=== PATIENT | female | born 1950 | race Caucasian/White ===

== ENCOUNTER 2019-05-31 21:29 | Emergency (ER) | payer MEDICARE ==
[~2019-05-31] VITALS: Ht 165.1 cm; Wt 74.8 kg
--- NOTE | ~2019-05-31 | EKG ---
[place], [place] ELECTROCARDIOGRAM REPORT NAME: NILAY BARR UNIT #: [id number] ROOM: DOCTOR: EPIPHANY DRAFT REPORT BIRTHDATE: [birth year] [facility] Test Date: 2019-06-01 Test Time: 00:14:00 Pat Name: NILAY BARR Department: ed Room: 1 Gender: F Tour Bus Driver: : 1950 Requested By: UYEN ISABEL Order Number: [id number] Reading MD: Xander El MD Measurements Intervals [place] Rate: 58 P: ME: QRS: 28 QRSD: 116 T: 5 QT: 619 QTc: 609 Interpretive Statements Atrial fibrillation Nonspecific intraventricular conduction delay Borderline T abnormalities, anterior leads Electronically Signed On 06-02-2019 15:56:17 PDT by Xander El MD CM:EKGRPT:ELECTROCARDIOGRAM REPORT [id number] UYEN MCDANIEL DRAFT REPORT UYEN ISABEL DO
--- NOTE | ~2019-05-31 | EKG ---
[place], [place] ELECTROCARDIOGRAM REPORT NAME: NILAY BARR UNIT #: [id number] ROOM: DOCTOR: EPIPHANY DRAFT REPORT BIRTHDATE: [birth year] [facility] Test Date: 2019-05-31 Test Time: 22:24:23 Pat Name: NILAY BARR Department: Room: Gender: F Customer Assistance Associate: DANIELE : 1950 Requested By: UYEN ISABEL Order Number: [id number] Reading MD: Xander El MD Measurements Intervals [place] Rate: 67 P: MI: QRS: 32 QRSD: 99 T: 19 QT: 583 QTc: 616 Interpretive Statements Atrial fibrillation Abnormal R-wave progression, early transition Minimal ST depression, anterolateral leads Prolonged QT interval Electronically Signed On 06-02-2019 15:56:09 PDT by Xander El MD CM:EKGRPT:ELECTROCARDIOGRAM REPORT 1556 UYEN MCDANIEL DRAFT REPORT UYNE ISABEL DO
[2019-05-31 22:25] LABS: BASO % 0.3 % (0.0-1.0); HEMATOCRIT 33.2 % (37.0-47.0); HEMOGLOBIN 11.1 g/dl (12.0-16.0); LYMPH # 1.2 10*3/uL (1.3-4.4); MEAN CELL VOLUME 99.4 fl (81.0-99.0); MEAN CORPUSCULAR HGB 33.2 pg (27.0-31.0); MEAN CORPUSCULAR HGB CONC 33.4 g/dl (33.0-37.0); MEAN PLATELET VOLUME 12.7 fl (9.6-12.3); MONO # 0.7 10*3/uL (0.1-1.0); MONO % 11.9 % (3.0-9.0); NEUT # 4.1 10*3/uL (2.3-7.9); NEUT % 68.1 % (47.0-73.0); PLATELET COUNT AUTOMATED 137 10*3/uL (130-400); RED BLOOD COUNT 3.34 10*6/uL (4.10-5.10); RED CELL DISTRI WIDTH 16.3 % (0-14.5); WHITE BLOOD COUNT 6.1 10*3/uL (4.8-10.8)
[2019-05-31 22:44] LABS: ALBUMIN 2.8 gm/dl (3.1-4.5); ALKALINE PHOSPHATASE 68 U/L (45-117); BUN 29 mg/dl (7-24); CHLORIDE 98 mmol/L (98-107); CREATININE 0.75 mg/dL (0.55-1.02); SGOT/AST 24 IU/L (3-35); SGPT/ALT 15 U/L (12-78); SODIUM 138 mmol/L (136-145); VALPROIC ACID (DEPAKENE) 91.8 ug/ml (50-100)
[2019-05-31 22:47] LABS: INTERNATIONAL NORM RATIO 1.4 (2.0-3.5)
[2019-05-31 22:50] LABS: POTASSIUM 2.3 mmol/L (3.5-5.1); THYROID STIM HORMONE (HS) 0.984 uIU/ml (0.358-4.75); TROPONIN I 0.067 ng/ml (<0.045)
[2019-06-01 04:23] LABS: BILIRUBIN NEGATIVE (NEGATIVE); BLOOD TRACE-INTACT (NEGATIVE); CLARITY SL CLOUDY (CLEAR); COLOR YELLOW (YELLOW); GLUCOSE NEGATIVE (NEGATIVE); KETONE 2+ (NEGATIVE); LEUKO ESTERASE 3+ (NEGATIVE); NITRITE POSITIVE (NEGATIVE); PH 7.5 (5.0-9.0); UROBILINOGEN 0.2 E.U./dl (0.2-1.0)
[2019-06-01 04:29] LABS: BACTERIA 3+; WBC 41-50 wbc/hpf (0-5)
== END 2019-06-01 04:52 | disposition short-term general hospital (02) ==
LOC: ED 21:29
PROVIDERS: Emergency Medicine
DX: I46.9 Cardiac arrest, cause unspecified (principal); I48.91 Unspecified atrial fibrillation; I47.2 Ventricular tachycardia; E87.6 Hypokalemia; R41.82 Altered mental status, unspecified

== ENCOUNTER 2019-07-11 14:21 | Inpatient (IN) | payer MEDICARE ==
[~2019-07-11] VITALS: Ht 170.1 cm; Wt 75.5 kg
[2019-07-11 14:25] VITALS: BP 154/117
[2019-07-11 15:38] LABS: BASO % 0.3 % (0.0-1.0); HEMATOCRIT 35.5 % (37.0-47.0); HEMOGLOBIN 11.4 g/dl (12.0-16.0); LYMPH # 1.6 10*3/uL (1.3-4.4); LYMPH % 22.7 % (27.0-41.0); MEAN CELL VOLUME 102.6 fl (81.0-99.0); MEAN CORPUSCULAR HGB 32.9 pg (27.0-31.0); MEAN CORPUSCULAR HGB CONC 32.1 g/dl (33.0-37.0); MEAN PLATELET VOLUME 10.4 fl (9.6-12.3); MONO # 0.7 10*3/uL (0.1-1.0); MONO % 9.9 % (3.0-9.0); NEUT # 4.6 10*3/uL (2.3-7.9); NEUT % 65.4 % (47.0-73.0); PLATELET COUNT AUTOMATED 119 10*3/uL (130-400); RED BLOOD COUNT 3.46 10*6/uL (4.10-5.10); RED CELL DISTRI WIDTH 15.7 % (0-14.5); WHITE BLOOD COUNT 7.1 10*3/uL (4.8-10.8)
[2019-07-11 15:52] LABS: ACT PARTIAL THROMBO TIME 30.7 SECONDS (20.0-32.1); INTERNATIONAL NORM RATIO 1.1 (2.0-3.5)
[2019-07-11 16:14] LABS: ALBUMIN 2.3 gm/dl (3.1-4.5); ALKALINE PHOSPHATASE 76 U/L (45-117); BUN 23 mg/dl (7-24); CHLORIDE 107 mmol/L (98-107); CREATININE 0.91 mg/dL (0.55-1.02); LIPASE 68 U/L (73-393); POTASSIUM 3.8 mmol/L (3.5-5.1); SGOT/AST 26 IU/L (3-35); SGPT/ALT 14 U/L (12-78); SODIUM 140 mmol/L (136-145); TOTAL PROTEIN 6.2 gm/dL (6.4-8.2); VALPROIC ACID (DEPAKENE) 106.5 ug/ml (50-100)
[2019-07-11 16:15] LABS: TROPONIN I < 0.015 ng/ml (<0.045)
[2019-07-11] MEDS ORDERED: DEPAKOTE500 MG PO (17:08)
[2019-07-11] MEDS ORDERED: PRILOSEC20 M1 PO (17:09)
[2019-07-11] MEDS ORDERED: FOLGARD TABLET1 EACH PO (17:10)
[2019-07-11] MEDS ORDERED: ELIQUIS5 M1 PO (17:11)
[2019-07-11 17:23] VITALS: BP 126/69
[2019-07-11 17:40] VITALS: BP 156/73
--- NOTE | 2019-07-11 17:40 | NUR ---
A 69, admitted to 5E, under the services of RAFITA Amaro MD with a diagnosis of VALPROIC ACID TOXICITY. Chief complaint is COUGH, DRAINAGE, GREEN SPUTUM . Patient arrived via bed from ER. Monitor applied. Initial assessment completed. Vital signs taken and recorded. RAFITA AMARO MD notified of admission to the unit. Orders received. See assessment for past medical history, medications and allergies. Patient and/or family oriented to unit. [address] visitation policy reviewed. Clothing/patient valuable form completed. HERNANDEZ COKER
[2019-07-11] MEDS ORDERED: PROBIOTIC1 EAC1 PO (18:39)
[2019-07-11] MEDS ORDERED: POTASSIUM99 M5 PO (18:40)
[2019-07-11] MEDS ORDERED: MAGOX 400400 MG PO (18:40)
--- NOTE | 2019-07-11 19:30 | NUR ---
24 HOUR CHART CHECK COMPLETED
[2019-07-11 20:00] VITALS: BP 148/73
--- NOTE | 2019-07-11 20:20 | NUR ---
PATIENT ASSESSMENT COMPLETED AT THIS TIME WITHOUT INCIDENT. PATIENT DENIES ANY PAIN OR DISCOMFORT AT THIS TIME. ORDERED IV FLUIDS INITIATED AT THIS TIME. CALL LIGHT WITHIN REACH WILL CONTINUE TO MONITOR.
--- NOTE | 2019-07-11 21:32 | NUR ---
NASAL SWAB COMPLETED AT THIS TIME FOR RAPID FLU ORDERED BY DR. JUAN.
[2019-07-11 22:43] LABS: VALPROIC ACID (DEPAKENE) 79.6 ug/ml (50-100)
[2019-07-11 22:45] LABS: TROPONIN I < 0.015 ng/ml (<0.045)
[2019-07-12] VITALS: BP 127/57
--- NOTE | 2019-07-12 03:25 | NUR ---
NOTIFIED BY JEREMY FROM LAB THAT PATIENT HAS POSITIVE AEROBIC AND ANEROBIC BLOOD CULTURES, SEE LAB RESULTS.
--- NOTE | 2019-07-12 03:27 | NUR ---
DR. DAWSON NOTIFIED OF POSITIVE BLOOD CULTURE RESULTS AT THIS TIME, AWAITING ORDERS.
--- NOTE | 2019-07-12 04:20 | NUR ---
PATIENT OFF OF FLOOR AT THIS TIME FOR A CHEST CT AT THIS TIME.
[2019-07-12 04:57] LABS: BILIRUBIN NEGATIVE (NEGATIVE); BLOOD 2+ (NEGATIVE); CLARITY SL CLOUDY (CLEAR); COLOR YELLOW (YELLOW); GLUCOSE NEGATIVE (NEGATIVE); KETONE NEGATIVE (NEGATIVE); LEUKO ESTERASE 2+ (NEGATIVE); NITRITE POSITIVE (NEGATIVE); UROBILINOGEN 0.2 E.U./dl (0.2-1.0)
[2019-07-12 05:09] LABS: BACTERIA 4+
[2019-07-12 05:10] LABS: WBC TNTC wbc/hpf (0-5)
--- NOTE | 2019-07-12 06:12 | NUR ---
DR. RODRIGUEZ'S ANSWERING SERVICE CALLED AND MESSAGE TAKEN ON CONSULT AT THIS TIME.
[2019-07-12 06:40] LABS: BASO % 0.3 % (0.0-1.0); EOS % 0.3 % (1.0-4.0); HEMATOCRIT 33.1 % (37.0-47.0); HEMOGLOBIN 10.4 g/dl (12.0-16.0); LYMPH # 1.6 10*3/uL (1.3-4.4); LYMPH % 21.6 % (27.0-41.0); MEAN CELL VOLUME 105.4 fl (81.0-99.0); MEAN CORPUSCULAR HGB 33.1 pg (27.0-31.0); MEAN CORPUSCULAR HGB CONC 31.4 g/dl (33.0-37.0); MEAN PLATELET VOLUME 11.3 fl (9.6-12.3); MONO # 0.9 10*3/uL (0.1-1.0); MONO % 11.7 % (3.0-9.0); NEUT # 4.9 10*3/uL (2.3-7.9); PLATELET COUNT AUTOMATED 113 10*3/uL (130-400); RED BLOOD COUNT 3.14 10*6/uL (4.10-5.10); RED CELL DISTRI WIDTH 15.9 % (0-14.5); WHITE BLOOD COUNT 7.5 10*3/uL (4.8-10.8)
[2019-07-12 06:48] LABS: ALKALINE PHOSPHATASE 69 U/L (45-117); BUN 20 mg/dl (7-24); CHLORIDE 108 mmol/L (98-107); CHOLESTEROL 104 mg/dL (<200); CREATININE 0.92 mg/dL (0.55-1.02); HDL CHOLESTEROL 39 mg/dl (40-60); LDL CHOLESTEROL 45 mg/dL (9-159); PHOSPHOROUS 2.5 mg/dL (2.5-4.9); POTASSIUM 3.2 mmol/L (3.5-5.1); SGOT/AST 21 IU/L (3-35); SGPT/ALT 12 U/L (12-78); SODIUM 142 mmol/L (136-145); TOTAL PROTEIN 5.5 gm/dL (6.4-8.2); TRIGLYCERIDES 98 mg/dl (<150); VALPROIC ACID (DEPAKENE) 63.4 ug/ml (50-100); VLDL CHOLESTEROL 20 mg/dL (6-40)
[2019-07-12 07:49] LABS: VITAMIN D, 25-HYDROXY 23.6 ng/mL (30-100)
[2019-07-12 08:00] VITALS: BP 140/62
--- NOTE | 2019-07-12 10:30 | NUR ---
Curtain Cutter in to talk to patient. Patient states lives at home alone with her sisters checking in on her. There are 2 steps in the home. Physician: Dr. Salomón Swanson [facility] Home health services: none Patient's level of ADLs: MINIMAL ASSIST Patient has working utilities: yes DME: walker, cane Follow-up physician's appointment after d/c: she prefers to make her own follow up appt after discharge Does patient want to access PORTAL?: no Discharge plan discussed with patient. She is [place]. She lives at home alone with her sisters checking in on her. She is independent in her ADLs and ambulates with either a cane or a walker. Discussed short term SNF and home health care services and she denies any home needs at this time. When medically stable she will be discharged to home. Her sisters will provide transportation on discharge. WILBERT GONSALEZ
[2019-07-12 12:00] VITALS: BP 145/95
--- NOTE | 2019-07-12 14:15 | NUR ---
Occupational Therapy evaluation completed on 5 with full eval to follow. Precautions include fall risk, ww use, incontinent bowel/bladder, IV UE,BURNS PAIUTE,poor dentition,moderate complexity level 98173 via chart review, testing and evaluation. Recommend OT per POC and SNF v.s. home with home health SN, OT,PT. Thank you. Maritza Lagunas OTR/L
[2019-07-12 16:00] VITALS: BP 136/59
[2019-07-12 20:00] VITALS: BP 138/72
--- NOTE | 2019-07-12 20:53 | NUR ---
PATIENT HAD "9" BEAT RUN OF V-TACH. PATIENT ALERT AND LAYING IN BED NO DISTRESS NOTED.
--- NOTE | 2019-07-12 21:15 | NUR ---
NOTIFIED DR. SOLOMON OF 9BEAT RUN OF V-TACH AND THAT POISON CONTROL HAD CALLED AND SUGGESTED REPEATING AMMONIA LEVEL. ORDERS RECEIVED.
[2019-07-12 22:04] LABS: BUN 19 mg/dl (7-24); CHLORIDE 110 mmol/L (98-107); POTASSIUM 3.4 mmol/L (3.5-5.1); SODIUM 141 mmol/L (136-145)
[2019-07-12 22:14] LABS: TROPONIN I < 0.015 ng/ml (<0.045)
[2019-07-13] VITALS: BP 137/63
--- NOTE | 2019-07-13 01:04 | NUR ---
24 HR chart check completed.
[2019-07-13 06:34] LABS: BUN 18 mg/dl (7-24); CHLORIDE 110 mmol/L (98-107); IRON 57 ug/dL (50-170); POTASSIUM 3.9 mmol/L (3.5-5.1); SODIUM 142 mmol/L (136-145); TOTAL IRON BINDING CAPACITY 238 ug/dl (250-450); VALPROIC ACID (DEPAKENE) 79.4 ug/ml (50-100)
[2019-07-13 06:38] LABS: BASO % 0.4 % (0.0-1.0); EOS % 0.4 % (1.0-4.0); HEMATOCRIT 35.7 % (37.0-47.0); LYMPH # 2.1 10*3/uL (1.3-4.4); LYMPH % 28.3 % (27.0-41.0); MEAN CELL VOLUME 107.5 fl (81.0-99.0); MEAN CORPUSCULAR HGB 33.1 pg (27.0-31.0); MEAN CORPUSCULAR HGB CONC 30.8 g/dl (33.0-37.0); MONO # 0.5 10*3/uL (0.1-1.0); MONO % 6.9 % (3.0-9.0); NEUT # 4.6 10*3/uL (2.3-7.9); NEUT % 62.4 % (47.0-73.0); PLATELET COUNT AUTOMATED 117 10*3/uL (130-400); RED BLOOD COUNT 3.32 10*6/uL (4.10-5.10); RED CELL DISTRI WIDTH 15.9 % (0-14.5); WHITE BLOOD COUNT 7.3 10*3/uL (4.8-10.8)
--- NOTE | 2019-07-13 08:59 | NUR ---
DR WOODALL NIOTIFIED OF PT POSITIVE BLOOD CULTURES. NO NEW ORDERS
--- NOTE | 2019-07-13 09:30 | NUR ---
Hotel And Dining Room Cashier in to see patient. No new needs or request at this time. She denies any home needs. When medically stable she will be discharged to home.
--- NOTE | 2019-07-13 10:22 | NUR ---
OT NOTE Pt was seen this A.M. 1:1 for 25 minute OT session. Upon arrival pt was sitting upright in the recliner. Pt identified by name and and had no complaints at this time. Pt presented to therapy with IV in LUE which remained in place throughout entire session. Sit to stand completed from chair level with modA due to low surface and poor technique. Educated pt on improved technique including proper hand placement for increased I in functional transfers. Pt had good carry over and was then able to complete sit to stand from chair level with Saul. Challenged pt's static standing tolerance needed for increased I in self care tasks and functional transfers. Pt was able to tolerate aprox 7 minutes before sitting due to fatigue. After a seated rest break pt completed functional mobility into the bathroom with CGA for safety and use of standard walker for UE support while therapist managed IV pole. Pt transferred on to standard commode with CGA, clothing managment completed with CGA for safety, and toilet hygiene completed with supervision while seated. Pt transferred off standard commode with Saul and use of grab bar for UE support. She then stood sink side while washing her hands, face, and completing hair care with SBA. Functional mobility was then completed to the recliner where she was left with call light in hand, tray table in place, and body alarm activated for safety. Continue with rec D/C plan to home with home health. SAIMA Oliver/Sindy
--- NOTE | 2019-07-13 11:26 | NUR ---
PTS BLOOD GLUCOSE 24. DR WOODALL NOTIFIED. ORDERS RECEIVED
--- NOTE | 2019-07-13 11:46 | NUR ---
PTS REPEAT BLOOD GLUCOSE CHECK 64. STAT LAB GLUCOSE REFLEX ORDERED
[2019-07-13 12:00] VITALS: BP 161/78
--- NOTE | 2019-07-13 12:22 | NUR ---
Spoke to sister on phone regarding any home needs. Patient currently has [facility] and she would like for her to resume those services upon discharge. Her bills are bubble wrapped and her sisters are at her house from the time she awakens until the time they put her to bed.
--- NOTE | 2019-07-13 14:28 | NUR ---
PHYSICAL THERAPY Physical therapy evaluation completed, 5E. Full details/evaluation to follow. Moderate complexity determined after evaluation/chart review, [id number]. PT to wwork on strength, gait, balance, endurance, safety. Recommending Home health at discharge. Thank you Leah Barber, PT, DPT
[2019-07-13 16:00] VITALS: BP 160/74
[2019-07-13 20:00] VITALS: BP 156/59
--- NOTE | 2019-07-13 21:30 | NUR ---
SNACK GIVEN TO PATIENT AND SHE ATE SANDWICH, APPLESAUCE AND CRACKERS.
[2019-07-14] VITALS: BP 142/66
--- NOTE | 2019-07-14 02:49 | NUR ---
24 HR chart check completed.
--- NOTE | 2019-07-14 04:10 | NUR ---
ALERT UP TO BATHROOM WITH MINIMAL ASSISTANCE WITH WALKER. PATIENT HAD VOIDED AND SMALL LOOSE GREEN YELLOW STOOL AND BACK TO BED WITH MINIMAL ASSISTANCE.
--- NOTE | 2019-07-14 04:25 | NUR ---
PATIENT BECOMING INCONTINENT OF STOOL WHILE GETTING INTO THE BATHROOM AGAIN. LG. LOOSE GREEN/YELLOW/UNDIGESTED FOOD. PATIENT WASHED UP, NEW BEDLINENS AND GOWN, AND RETURNED TO BED.
[2019-07-14 06:44] LABS: BASO % 0.3 % (0.0-1.0); EOS # 0.1 10*3/uL (0.0-0.4); HEMATOCRIT 34.1 % (37.0-47.0); HEMOGLOBIN 10.5 g/dl (12.0-16.0); LYMPH # 1.9 10*3/uL (1.3-4.4); LYMPH % 30.5 % (27.0-41.0); MEAN CELL VOLUME 105.9 fl (81.0-99.0); MEAN CORPUSCULAR HGB 32.6 pg (27.0-31.0); MEAN CORPUSCULAR HGB CONC 30.8 g/dl (33.0-37.0); MEAN PLATELET VOLUME 10.8 fl (9.6-12.3); MONO # 0.4 10*3/uL (0.1-1.0); NEUT # 3.7 10*3/uL (2.3-7.9); NEUT % 60.3 % (47.0-73.0); PLATELET COUNT AUTOMATED 136 10*3/uL (130-400); RED BLOOD COUNT 3.22 10*6/uL (4.10-5.10); RED CELL DISTRI WIDTH 15.7 % (0-14.5); WHITE BLOOD COUNT 6.2 10*3/uL (4.8-10.8)
[2019-07-14 07:00] LABS: ALBUMIN 1.9 gm/dl (3.1-4.5); ALKALINE PHOSPHATASE 67 U/L (45-117); BUN 14 mg/dl (7-24); CHLORIDE 110 mmol/L (98-107); CREATININE 0.91 mg/dL (0.55-1.02); POTASSIUM 3.7 mmol/L (3.5-5.1); SGOT/AST 29 IU/L (3-35); SGPT/ALT 14 U/L (12-78); SODIUM 142 mmol/L (136-145); TOTAL PROTEIN 5.5 gm/dL (6.4-8.2)
[2019-07-14 07:07] LABS: VALPROIC ACID (DEPAKENE) 79.1 ug/ml (50-100)
[2019-07-14 08:00] VITALS: BP 142/64
--- NOTE | 2019-07-14 09:00 | NUR ---
Electrical Prospecting Operator in to see patient. No new needs or request at this time. She denies any home needs. When medically stable she will be discharged to home with the resumption of her [facility].
--- NOTE | 2019-07-14 10:15 | NUR ---
OT NOTE Pt was seen this A.M. 1:1 for 15 minute Ot session. Upon arrival pt was supine in bed. Pt identified by name and and had no complaints at this time. Pt transferred supine to sit EOB with SBA. Sit to stand completed from bed level with Saul and use of standard walker for UE support. Functional mobility was then completed into the bathroom with CGA for safety and use of standard walker. Pt transferred on/off standard commode with Saul and use of grab bar for UE support. Clothing managment completed with Saul and toilet hygiene completed with supervision while seated. Pt then stood sink side while washing her hands with CGA for safety. Functional mobility was then completed back to the EOB where she transferred sit to supine with SBA. There she was left with call light in hand, tray table in place, and bed alarm activated for safety. Continue with rec D/C plan to home with home health. SAIMA Oliver/Sindy
--- NOTE | 2019-07-14 10:57 | NUR ---
CALLED DR ANGELO REGARDING NEW PT CONSULT. WAITING GASOLINE TRUCK OPERATOR BACK
--- NOTE | 2019-07-14 11:06 | NUR ---
PER DR ANGELO PT WILL HAVE COLONOSCOPY Thursday07/15/19. ORDERS RECEIVED
--- NOTE | 2019-07-14 11:13 | NUR ---
PHYSICAL THERAPY Patient presented to therapy in supine with head of bed elevated and report of no pain , but having diarrhea. Patient gives informed consent for treatment. Patient was idenitified by name and on wristband. Patient performed supine to sitting at EOB transfer with SBA. Patient performed sit to stand from EOB with CGA X 1. Patient performed ambulation for 80' x 1 with Standard Walker and CGA X 1 and no LOB or other difficulty. Patient transferred to bedside chair with CGA X 1. Patient sit to stand from BEDSIDE CHAIR with CGA X 1. PATIENT AMBULATED ANOTHER 20' X 1 to and from restroom with CGA X 1 using standard walker. patient was left in bedside chair with CALL LIGHT WITHIN REACH, CHAIR ALARM TESTED AND ATTACHED TO PATIENT and TRAY TABLE NEAR PATIENT. Patient was 1:1 with this NDT INSPECTOR for 20 minutes total. VIVI BURT NDT INSPECTOR
[2019-07-14 12:00] VITALS: BP 138/60
[2019-07-14 16:00] VITALS: BP 148/73
--- NOTE | 2019-07-14 16:38 | NUR ---
COMPLETED SURGERY PACKET AND CONSENT WITH PT AND HER SISTER DAX WHO IS ALSO HER POA IN THE EVENT PT CAN NOT MAKE DECISIONS FOR HERSELF.
--- NOTE | 2019-07-14 19:20 | NUR ---
UP TO BATHROOM WITH ASSISTANCE OF WALKER AND 1 PERSON. HAD LIQUID/WATERY BILE COLOR WITH FLECKS. PATIENT BACK TO BED WITH BED ALARM ON. PLACING BEDSIDE COMMODE TO ASSIST PATIENT DURING COLO PREP TONIGHT.
[2019-07-14 20:00] VITALS: BP 150/71
--- NOTE | 2019-07-14 20:28 | NUR ---
24 HR chart check completed.
--- NOTE | 2019-07-14 22:00 | NUR ---
TOOK PO MEDICATIONS WITHOUT DIFFICULTY. VOICES NO C/O. CALL LIGHT WITHIN REACH.
[2019-07-15] VITALS (7 sets, daily range): BP systolic 143–181; BP diastolic 56–73
--- NOTE | 2019-07-15 02:53 | NUR ---
SLEEPING NO ACUTE DISTRESS NOTED.
[2019-07-15 06:36] LABS: BASO % 0.4 % (0.0-1.0); EOS # 0.1 10*3/uL (0.0-0.4); EOS % 1.1 % (1.0-4.0); HEMATOCRIT 36.6 % (37.0-47.0); HEMOGLOBIN 11.4 g/dl (12.0-16.0); LYMPH # 2.3 10*3/uL (1.3-4.4); LYMPH % 31.2 % (27.0-41.0); MEAN CELL VOLUME 106.4 fl (81.0-99.0); MEAN CORPUSCULAR HGB 33.1 pg (27.0-31.0); MEAN CORPUSCULAR HGB CONC 31.1 g/dl (33.0-37.0); MEAN PLATELET VOLUME 10.6 fl (9.6-12.3); MONO # 0.4 10*3/uL (0.1-1.0); MONO % 5.3 % (3.0-9.0); NEUT # 4.4 10*3/uL (2.3-7.9); NEUT % 60.5 % (47.0-73.0); PLATELET COUNT AUTOMATED 142 10*3/uL (130-400); RED BLOOD COUNT 3.44 10*6/uL (4.10-5.10); RED CELL DISTRI WIDTH 15.7 % (0-14.5); WHITE BLOOD COUNT 7.3 10*3/uL (4.8-10.8)
[2019-07-15 06:43] LABS: BUN 11 mg/dl (7-24); CHLORIDE 113 mmol/L (98-107); CREATININE 0.85 mg/dL (0.55-1.02); POTASSIUM 3.7 mmol/L (3.5-5.1); SODIUM 141 mmol/L (136-145)
--- NOTE | 2019-07-15 09:00 | NUR ---
Training Facilitator in to see patient. No new needs or request at this time. She denies any home needs. When medically stable she will be discharged to home with the resumption of her [facility]. She is scheduled for an EGD today, waiting on C-diff results, on po Vancomycin and IV Rocephin.
--- NOTE | 2019-07-15 09:10 | NUR ---
PHYSICAL THERAPY PT SITTING EOB UPON ARRIVAL. PT IDENTIFIED BY NAME AND . PT AGREED TO ALL PT TREATMENT THIS A.M. PT PERFORMED STS FROM EOB TO FWW WITH SBA. PT GAIT TRAINED 70FT X1 WITH FWW AND SBA. PT HAD SLOW MIKE AND A SLIGHT FORWARD FLEXED POSTURE. PT PERFORMED STS TO EOB WITH SBA. PT PERFORMES SIT TO SUPINE WITH SBA. PT SUPINE IN BED WITH BED ALARM ON AND CALL LIGHT IN HAND. PT REPORTED NO OTHER NEEDS AT THIS TIME. PT SEEN 1:1 FOR 14MINS. XENA ASIF PTA
--- NOTE | 2019-07-15 09:18 | NUR ---
OT NOTE Pt was seen this A.M. 1:1 for 18 minute OT session. Upon arrival pt was sitting upright on the bedside commode. Pt identified by name and and had no complaints at this time. Pt transferred sit to stand from bedside commode with CGA for safety. Clothing management completed with CGA. Functional mobility was then completed around the room with CGA and use of w/w for UE support. While turning pt had one LOB that required Saul to correct. Educated pt on safe turning technique and pt presented with good carry over. Challenged pt's static standing tolerance needed for increased I in self care tasks and functional transfers, pt was able to tolerate aprox 8 minutes before sitting due to fatigue. Functional mobility was then completed back to the EOB where she transferred sit to supine with SBA. There she was left with call light in hand, tray table in place, and bed alarm activated for safety. Continue with rec D/C plan to home with home health. SAIMA Oliver/Sindy
--- NOTE | 2019-07-15 13:50 | NUR ---
PT OFF FLOOR FOR SURGERY.
--- NOTE | 2019-07-15 14:48 | NUR ---
Nutritional Support Services Note: Pt remains NPO awaiting colonscopy today. Will follow up. Pt has c/o nausea and vomiting. Dx of severe protein calorie malnutrition. Will monitor for advancement of po intake. Estefania Bronson Rdn Ld
--- NOTE | 2019-07-15 15:23 | NUR ---
OCCUPATIONAL THERAPY CO-SIGN I approve of the Occupational Therapy notes written above. MIK RIOS OTR/Sindy
--- NOTE | 2019-07-15 20:00 | NUR ---
RESTING IN BED WITH EYES CLOSED. RESPIRATIONS EASY & UNLABORED ON ROOM AIR. NO DISTRESS NOTED. CALL LIGHT WITHIN REACH.
[2019-07-16] VITALS: BP 151/55
--- NOTE | 2019-07-16 04:00 | NUR ---
RESTING IN BED WITH EYES CLOSED. BED IN LOW LOCKED POSITION; CALL LIGHT WITHIN REACH.
[2019-07-16 08:00] VITALS: BP 140/62
[2019-07-16] MEDS ORDERED: DIVALPROEX SOD250 MG PO (08:28)
[2019-07-16] MEDS ORDERED: VITAMIN D5000 UNI1 PO (08:28)
[2019-07-16] MEDS ORDERED: LEVAQUIN750 M1 PO (08:28)
[2019-07-16] MEDS ORDERED: DIVALPROEX SOD500 MG PO (08:28)
--- NOTE | 2019-07-16 09:00 | NUR ---
PT UP IN CHAIR, BREAKFAST TRAY AT BEDSIDE. NO VOICED COMPLAINTS. WILL CONTINUE TO MONITOR. VSS.
--- NOTE | 2019-07-16 11:19 | NUR ---
Discharge instructions reviewed with patient/family. Patient receptive and verbalizes understanding. Follow-up care arranged. Written instructions given to patient/family. ASIM CRUZ.
--- NOTE | 2019-07-18 07:33 | NUR ---
Faxed resumption/new home health order to [facility]
--- NOTE | 2019-07-18 07:52 | NUR ---
PHYSICAL THERAPY CO-SIGN I approve of the Physical Therapy notes written above. Rosemary Seay PT
== END 2019-07-16 11:19 | disposition home health service (06) | DRG 917 ==
LOC: ED 14:21 → 5E 16:32 → EDHOLD 16:32 → 5E 17:34
PROVIDERS: Emergency Medicine; Student in an Organized Health Care Education/Training Program; ADMIT Internal Medicine
PROC: 0DBL8ZZ Excision of Transverse Colon, Via Natural or Artificial Opening Endoscopic (ICD-10-PCS; principal; 2019-07-15)
DX: T42.6X1A Poisoning by other antiepileptic and sedative-hypnotic drugs, accidental (unintentional), initial encounter (principal); E43 Unspecified severe protein-calorie malnutrition; R78.81 Bacteremia; N30.00 Acute cystitis without hematuria; K63.5 Polyp of colon; R07.9 Chest pain, unspecified; J06.9 Acute upper respiratory infection, unspecified; R07.81 Pleurodynia; I48.91 Unspecified atrial fibrillation; J44.9 Chronic obstructive pulmonary disease, unspecified; K21.9 Gastro-esophageal reflux disease without esophagitis; I10 Essential (primary) hypertension; Z96.649 Presence of unspecified artificial hip joint; Z96.659 Presence of unspecified artificial knee joint; E87.6 Hypokalemia; R00.1 Bradycardia, unspecified; R56.9 Unspecified convulsions; E55.9 Vitamin D deficiency, unspecified; D53.9 Nutritional anemia, unspecified; E16.2 Hypoglycemia, unspecified; B96.20 Unspecified Escherichia coli [E. coli] as the cause of diseases classified elsewhere; D69.6 Thrombocytopenia, unspecified; K55.20 Angiodysplasia of colon without hemorrhage; I25.2 Old myocardial infarction; Z98.84 Bariatric surgery status; Z88.6 Allergy status to analgesic agent; Z79.899 Other long term (current) drug therapy; Y92.89 Other specified places as the place of occurrence of the external cause; Z68.26 Body mass index [BMI] 26.0-26.9, adult

== ENCOUNTER 2019-08-20 12:20 | Emergency (ER) | payer MEDICARE ==
[~2019-08-20] VITALS: Ht 172.7 cm; Wt 77.1 kg
[~2019-08-20 12:20] MED LIST: DEPAKOTE500 MG PO; DIVALPROEX SOD250 MG PO; DIVALPROEX SOD500 MG PO; ELIQUIS5 M1 PO; FOLGARD TABLET1 EACH PO; LEVAQUIN750 M1 PO; MAGOX 400400 MG PO; POTASSIUM99 M5 PO; PRILOSEC20 M1 PO; PROBIOTIC1 EAC1 PO; VITAMIN D5000 UNI1 PO
== END 2019-08-20 15:58 | disposition short-term general hospital (02) ==
LOC: ED 12:20
DX: S42.401A Unspecified fracture of lower end of right humerus, initial encounter for closed fracture (principal); S22.41XA Multiple fractures of ribs, right side, initial encounter for closed fracture; S00.83XA Contusion of other part of head, initial encounter; Z88.5 Allergy status to narcotic agent; Z79.2 Long term (current) use of antibiotics; Z79.899 Other long term (current) drug therapy; W18.09XA Striking against other object with subsequent fall, initial encounter; Y93.89 Activity, other specified; Y92.098 Other place in other non-institutional residence as the place of occurrence of the external cause; Y99.8 Other external cause status

== ENCOUNTER 2019-09-14 13:14 | Inpatient (IN) | payer MEDICARE ==
[~2019-09-14] VITALS: Ht 162.6 cm; Wt 79.4 kg
[2019-09-14 13:18] VITALS: BP 118/60
[2019-09-14 14:47] LABS: BASO % 0.3 % (0.0-1.0); EOS % 0.3 % (1.0-4.0); HEMATOCRIT 35.6 % (37.0-47.0); HEMOGLOBIN 11.9 g/dl (12.0-16.0); LYMPH # 1.9 10*3/uL (1.3-4.4); LYMPH % 25.9 % (27.0-41.0); MEAN CELL VOLUME 104.4 fl (81.0-99.0); MEAN CORPUSCULAR HGB 34.9 pg (27.0-31.0); MEAN CORPUSCULAR HGB CONC 33.4 g/dl (33.0-37.0); MEAN PLATELET VOLUME 10.7 fl (9.6-12.3); MONO # 0.3 10*3/uL (0.1-1.0); MONO % 3.6 % (3.0-9.0); NEUT % 69.3 % (47.0-73.0); PLATELET COUNT AUTOMATED 166 10*3/uL (130-400); RED BLOOD COUNT 3.41 10*6/uL (4.10-5.10); WHITE BLOOD COUNT 7.2 10*3/uL (4.8-10.8)
[2019-09-14 15:02] LABS: ALBUMIN 2.4 gm/dl (3.1-4.5); CREATININE 1.2 mg/dL (0.55-1.02); POTASSIUM 4.3 mmol/L (3.5-5.1); TOTAL PROTEIN 5.8 gm/dL (6.4-8.2)
[2019-09-14 16:32] VITALS: BP 130/73
[2019-09-14 16:37] LABS: BILIRUBIN NEGATIVE (NEGATIVE); BLOOD NEGATIVE (NEGATIVE); CLARITY CLOUDY (CLEAR); COLOR YELLOW (YELLOW); GLUCOSE NEGATIVE (NEGATIVE); KETONE NEGATIVE (NEGATIVE)
[2019-09-14 16:38] LABS: BACTERIA 4+; LEUKO ESTERASE NEGATIVE (NEGATIVE); NITRITE NEGATIVE (NEGATIVE); UROBILINOGEN 0.2 E.U./dl (0.2-1.0)
--- NOTE | 2019-09-14 17:37 | NUR ---
COCCYX REDDENED BUT BLANCHABLE.
--- NOTE | 2019-09-14 19:06 | NUR ---
NURSE TO NURSE REPORT GIVEN TO THIS RN.PT AWAITING ROOM ASSIGNMENT FOR ADMISSION.
--- NOTE | 2019-09-14 20:00 | NUR ---
A 69, admitted to , under the services of RAFITA Amaro MD with a diagnosis of CONFUSION, GENERAL WEAKNESS. Chief complaint is WEAKNESS. Patient arrived via bed from ER. Monitor applied. Initial assessment completed. Vital signs taken and recorded. RAFITA AMARO MD notified of admission to the unit. Orders received. See assessment for past medical history, medications and allergies. Patient and/or family oriented to unit. [facility] Clothing/patient valuable form completed. JANEL AMBROCIO
--- NOTE | 2019-09-14 20:16 | NUR ---
SPOKE WITH PATIENT SISTER DAX, SHE STATES THAT SHE IS ON HER WAY DOWN TO THE HOSPITAL. ALSO SPOKE WITH DR. MULLEN AND HE STATED THAT HE SEEN THE PATIENT AND WOULD LIKE HER TO BE ON THE MONITOR
[2019-09-14 20:23] VITALS: BP 139/72
[2019-09-14] MEDS ORDERED: OYSTER SHELL 51 EACH PO (21:16)
[2019-09-14] MEDS ORDERED: FOSAMAX70 M1 PO (21:17)
[2019-09-14] MEDS ORDERED: IMODIUM A-D2 M2 PO (21:18)
[2019-09-14] MEDS ORDERED: MULTIVITAMINS1 EAC5 PO (21:26)
--- NOTE | 2019-09-14 21:29 | NUR ---
NOTIFIED DR. MULLEN OF PATIENTS MED REC BEING UPDATED AND WENT OF HISTORY THAT WAS TOLD TO ME BY PATIENTS SISTER DAX OF A RECENT RIGHT BROKEN ELBOW, BROKEN RIBS, HISTORY OF AFIB AND VTACH, CARDIAC ARREST AND MULTIPLE FALLS, AND SEIZURES
[2019-09-14 23:55] VITALS: BP 127/61
--- NOTE | 2019-09-15 02:00 | NUR ---
SPOKE WITH DR. MULLEN ABOUT PATIENT HAVING YATES, HE STATED IT WOULD BE OK TO TAKE IT OUT, EXPLAIEND TO HIM THEY PUT IT IN IN THE ER TO GET A URINE SPECIMEN. ALSO NOTIFIED HIM OF RESULTS OF CT OF THE CHEST, HE STATED HE WOULD TAKE A LOOK AT IT
[2019-09-15 06:27] LABS: BASO % 0.1 % (0.0-1.0); EOS % 0.5 % (1.0-4.0); HEMATOCRIT 31.8 % (37.0-47.0); HEMOGLOBIN 10.5 g/dl (12.0-16.0); LYMPH # 1.9 10*3/uL (1.3-4.4); LYMPH % 23.5 % (27.0-41.0); MEAN PLATELET VOLUME 11.1 fl (9.6-12.3); MONO # 0.4 10*3/uL (0.1-1.0); MONO % 4.9 % (3.0-9.0); NEUT # 5.7 10*3/uL (2.3-7.9); NEUT % 70.6 % (47.0-73.0); PLATELET COUNT AUTOMATED 143 10*3/uL (130-400); RED CELL DISTRI WIDTH 17.1 % (0-14.5); WHITE BLOOD COUNT 8.1 10*3/uL (4.8-10.8)
[2019-09-15 07:04] LABS: ALKALINE PHOSPHATASE 69 U/L (45-117); BUN 24 mg/dl (7-24); CHLORIDE 111 mmol/L (98-107); CHOLESTEROL 128 mg/dL (<200); HDL CHOLESTEROL 66 mg/dl (40-60); LDL CHOLESTEROL 46 mg/dL (9-159); PHOSPHOROUS 2.4 mg/dL (2.5-4.9); POTASSIUM 4.2 mmol/L (3.5-5.1); SGOT/AST 27 IU/L (3-35); SGPT/ALT 14 U/L (12-78); SODIUM 142 mmol/L (136-145); TRIGLYCERIDES 82 mg/dl (<150); VLDL CHOLESTEROL 16 mg/dL (6-40)
[2019-09-15 07:32] LABS: FREE T4 < 0.10 ng/dl (0.76-1.46)
--- NOTE | 2019-09-15 07:43 | NUR ---
NILAY BARR [id number] Please refer to the physician's history and physical for past medical history, comorbid conditions, and allergies. Diagnosis: CONFUSION UNABLE TO AMBULATE Duane Score: 12,HIGH RISK WOUND DESCRIPTIONS: Wound Number: 1 Location of the wound: Left knee Type of wound: scab Thickness: Partial Size: 0.5cm x 0.8cm x <0.1cm Tunneling: none Undermining: none Sinus Tract: none Presence of Exudate: none Amount: None Color: Brown Odor: None Periwound Skin Appearance: Scar Wound edges: approximated Pain (associated with wound): none at time of assessment How does patient state this happened? pt unable to state how this happened Surface the patient is resting on: Isoflex SKIN PREVENTION RECOMMENDATION: 1. Pressure redistribution support surface as appropriate 2. Elevate heels 3. Remove boots/TEDS every shift and reapply 4. Head of bed 30 degrees as tolerated 5. Assess nutrition and hydration 6. Manage moisture 7. Avoid the use of containment devices while in bed 8. Use absorptive products on surfaces limit layers of linens on bed 9. Turn and reposition every 1-2 hours in bed and every 1 hour in chair as tolerated 10. Weight shifts every 15 minutes while up in chair 11. Offloading with pillows or device to keep heels elevated off bed 12. Monitor skin at least every shift 13. Inspect under medical devices twice a day WOUND TREATMENT RECOMMENDATIONS: Partial thickness guidelines: Cleanse left knee with nss and apply sureprep around the wound hydrogel to wound bed and cover with optifoam gentle every 2 days and prn for soiling. Heel raiser pro boots to bilateral feet while in bed.
[2019-09-15 08:00] VITALS: BP 120/64
[2019-09-15 09:20] LABS: VITAMIN D, 25-HYDROXY 27.6 ng/mL (30-100)
--- NOTE | 2019-09-15 10:20 | NUR ---
Occupational Therapy evaluation completed on 5 with full eval to follow. Precautions include fall risk,bed alarm,dent,IV UE,impaired cognition,moderate complexity level 73492. Recommend OT per pOC and SNF to enable max ability to function. Thank you. Maritza Lagunas OTR/l
--- NOTE | 2019-09-15 10:30 | NUR ---
Bench Molder in to talk to patient. Patient states lives at home alone with her sisters checking in on her. There are 2 steps in the home. Physician: Dr. Salomón Swanson [facility] Home health services: [facility] Patient's level of ADLs: MINIMAL ASSIST Patient has working utilities: yes DME: walker, cane Follow-up physician's appointment after d/c: she prefers to make her own follow up appt after discharge Does patient want to access PORTAL?: no Discharge plan discussed with patient. She is very [place]. She lives at home alone with her sisters checking in on her. Her medications are bubble wrapped and her sisters are at her house from the time she wakes up until they put her in bed. She is independent in her ADLs and ambulates with either a cane or a walker. Discussed short term SNF and she refuses. Discussed home health care services and previously she had [facility]. Will call sister and check. When medically stable she will be discharged to home. Her sisters will provide transportation on discharge. WILBERT GONSALEZ
--- NOTE | 2019-09-15 10:42 | NUR ---
YARD ASSISTANT received call from [facility]. Patient is active with RNs/PT. -SEAMUS Tellez
--- NOTE | 2019-09-15 10:58 | NUR ---
PHYSICAL THERAPY Rohini completed moderate level of complexity [id number] full report to follow recomend SNF at discharge. PT to work on transfers,amb, balance/safety and strengthening. Rosemary Seay PT
[2019-09-15 12:00] VITALS: BP 112/67
--- NOTE | 2019-09-15 12:30 | NUR ---
OT NOTE Pt was seen this P.M. 1:1 for 18 minute OT session. Upon arrival pt was supine in bed. Pt identified by name and and had no complaints at this time. Pt transferred supine to sit EOB with Saul for assist with UB. While sitting EOB requested for pt to doff and serafin B socks and pt was able to complete with CGA due to poor safety awareness. Multiple sit to stand transfers were completed from bed level with Saul and use of w/w for UE support. Challenged pt's static standing tolerance needed for increased I in self care tasks and functional transfers, pt was able to tolerate aprox 3 minutes at a time before sitting due to fatigue. Pt completed functional mobility to the recliner with CGA and use of w/w. Pt transferred into the recliner with CGA and verbal prompts for proper hand placement. Pt then requested to lay back into bed. Sit to stand completed from chair level with Saul and use of w/w followed by transferring back into bed sit to supine with SBA. There she was left with call light in hand, tray table in place, and bed alarm activated for safety. Continue with rec D/C plan to SNF. SAIMA Oliver/Sindy
--- NOTE | 2019-09-15 13:12 | NUR ---
PHYSICAL THERAPY Screen and PT eval received pt has been evaluated and is on caseload Rosemary Seay PT
--- NOTE | 2019-09-15 14:30 | NUR ---
Message left for sister, Laure, at [phone] regarding discharge planning. Awaiting return call.
[2019-09-15 16:00] VITALS: BP 122/57
--- NOTE | 2019-09-15 17:03 | NUR ---
IN TO SEE PATIENT.
--- NOTE | 2019-09-15 17:51 | NUR ---
NOTIFIED OF CONSULT.
--- NOTE | 2019-09-15 19:59 | NUR ---
PATIENT SLEEPING. EASILY AWAKENED. QUECHAN. IV FLUIDS INFUSING. PATIENT HAS NO COMPLAINTS. MOIST COUGH NOTED. EDEMA TO BLE. BED ALARM INTACT, CALL LIGHT WITHIN REACH, WILL MONITOR
[2019-09-15 20:00] VITALS: BP 122/71
[2019-09-16] VITALS: BP 105/85
[2019-09-16 06:29] LABS: BASO % 0.3 % (0.0-1.0); EOS # 0.1 10*3/uL (0.0-0.4); EOS % 1.3 % (1.0-4.0); HEMATOCRIT 29.9 % (37.0-47.0); HEMOGLOBIN 9.9 g/dl (12.0-16.0); LYMPH # 2.1 10*3/uL (1.3-4.4); LYMPH % 30.7 % (27.0-41.0); MEAN CORPUSCULAR HGB 35.1 pg (27.0-31.0); MEAN CORPUSCULAR HGB CONC 33.1 g/dl (33.0-37.0); MONO # 0.4 10*3/uL (0.1-1.0); MONO % 5.1 % (3.0-9.0); NEUT # 4.2 10*3/uL (2.3-7.9); NEUT % 61.9 % (47.0-73.0); PLATELET COUNT AUTOMATED 142 10*3/uL (130-400); RED BLOOD COUNT 2.82 10*6/uL (4.10-5.10); RED CELL DISTRI WIDTH 16.8 % (0-14.5); WHITE BLOOD COUNT 6.8 10*3/uL (4.8-10.8)
[2019-09-16 06:42] LABS: BUN 21 mg/dl (7-24); CHLORIDE 112 mmol/L (98-107); CREATININE 0.92 mg/dL (0.55-1.02); POTASSIUM 3.9 mmol/L (3.5-5.1); SODIUM 141 mmol/L (136-145)
[2019-09-16 08:00] VITALS: BP 114/58
--- NOTE | 2019-09-16 08:38 | NUR ---
OT NOTE PATIENT SEEN OT THIS DATE 18 MINUTES. PATIENT INDENTIFIED BY NAME AND DATE OF WRIST BAND. PATIENT IN BED UPON ARRIVAL. PATIENT COMPLETED SUPINE TO SIT EOB MOD A AND MOD A SIT TO STAND FROM BED WITH MOD VERBAL CUES SAFETY USE FWW AND PROPER HAND PLACEMENT. COMPLETED FUNCTIONAL AMBULATION USE FWW TO BATHROOM MIN A MANAGE FWW ESPECIALLY WITH TURNS TO COMPLETE STAND TO SIT TOILET WITH LOB X 1 MIN A RECOVER. COMPLETED LB DRESSING/TOILETING TASK PATIENT INCONTINENT OF BLADDER MOD A HYGIENE AND MAX DOFF/REY DEPENDS. COMPLETED UB DRESSING MOD A REY GOWN. PATIENT COMPLETED SIT TO STAND FROM TOILET MOD A USE GRAB BAR WITH DECREASE SAFETY AWARENESS DEMONSTRATED WITH MOD VERBAL REQUIRED. COMPLETED HAND WASHING STANDING AT SINK MOD A SEQUENCING TASK. PATIENT COMPLETED FUNCTIONAL AMBULATION TO BED USE FWW MIN A. COMPLETED SIT TO SUPINE MIN A WITH EDUCATION USE RAIL SUPPORT. CONTINUE TOWARDS PLAN OF CARE. PATIENT IN BED WITH CALL LIGHT AND BED ALARM IN TACT. NO FURTHER NEEDS VERBALIZED. RENEE LANDAVERDE/ Sindy
--- NOTE | 2019-09-16 08:38 | NUR ---
PHYSICAL THERAPY TREATMENT TIME: 08:15 AM - 08:35 AM 20 MINUTES Patient presented to therapy in supine with head of bed elevated and bed alarm activated. Patient seems somewhat confused and lethargic. Patient gives informed consent for treatment. Patient was identified by name and on wristband. Patient performed supine to sitting at EOB with MOD A X 2. Patient sat on EOB with CGA X 1. Patient performd sit to stand from EOB with MIN A X 2 with verbal cues for hand placement. Patient performed ambulation with Wh Walker and CGA X 2 to MIN A X 1 for 20' X 1 and then again for 30' X 1 with 2 episodes of LOB that required MIN A X 1 to correct. Patient sit <> stand from low chair with MOD A X 2 with verbal cues for putting hands back on armrests of chair and pushing off the chair with hands. Patient required MOD A X 1 to turn Wh Walker 2 times while ambulating and she was verbal cued to put hands back on Wh Walker when attempting to turn while in front of sink. Patient is a safety risk due to confusion. Patient transferred back to supine in bed with MIN A X 1. Patient was left in supine in bed with head of bed elevated, call light within reach and bed alarm activated. Patient was 1:1 with this PLASTERER STUCCO for 20 minutes total. VIVI BURT PLASTERER STUCCO
--- NOTE | 2019-09-16 08:41 | NUR ---
IN TO SEE PATIENT.
[2019-09-16 08:42] VITALS: BP 103/67
--- NOTE | 2019-09-16 09:23 | NUR ---
Spoke with Dr. Swanson regarding wound care recommendations and he stated to go ahead and put them in
[2019-09-16 12:00] VITALS: BP 140/84
--- NOTE | 2019-09-16 12:00 | NUR ---
FAMILY MEMBER AT BEDSIDE.
--- NOTE | 2019-09-16 12:00 | NUR ---
Charcoal Burner Beehive Kiln in to see patient. Family at bedside. Nichol, caregiver, would like patient to go to [facility] for rehab. naval surface fire support planner notified.
--- NOTE | 2019-09-16 13:01 | NUR ---
NATIONAL PARK TOUR GUIDE received notice the patient would like to be referred to [facility]. NATIONAL PARK TOUR GUIDE faxed new referral. PRECERT and acceptace will be needed. -SEAMUS Tellez
--- NOTE | 2019-09-16 15:15 | NUR ---
ELECTRO MECHANICAL DESIGNER COMPLETED HENS. -SEAMUS PEREZ
--- NOTE | 2019-09-16 15:33 | NUR ---
PHYSICAL THERAPY CO-SIGN I approve of the Physical Therapy notes written above. Rosemary Seay PT
[2019-09-16 16:00] VITALS: BP 118/69
[2019-09-16 20:00] VITALS: BP 118/61
--- NOTE | 2019-09-16 22:00 | NUR ---
TOOK PO MEDICATION WITHOUT DIFFICULTY. OUT OF BED SEVERAL TIMES; ASSISTED BACK TO BED. CALL LIGHT WITHIN REACH; BED ALARM INTACT.
[2019-09-17] VITALS: BP 126/84
[2019-09-17 08:00] VITALS: BP 104/58; BP 122/56
--- NOTE | 2019-09-17 08:00 | NUR ---
Patient resting quietly with no c/o discomfort. Respirations easy and regular. Vital signs stable. No overt distress. ASIM CRUZ
[2019-09-17 12:00] VITALS: BP 119/63
--- NOTE | 2019-09-17 14:05 | NUR ---
PHYSICAL THERAPY Patient supine in bed at time of arrival. Patient name/ identified by wristband. RESIDENTIAL DIRECT SUPPORT PROFESSIONAL communicating to patient via hearing device in which was on bedside table. Patient voiced not wanting to participate in therapy this date, however, RESIDENTIAL DIRECT SUPPORT PROFESSIONAL educated patient on need for participation to improve mobility/ROM; patient agreeable to perform supine ther-ex, but declined getting out of bed this date. Performance of supine B LE ther-ex, AROM, for strength, endurance and ROM; heel slides, quad sets with 5 sec holds, SLR, ankle PF/DF, hip ABD/ADD 2x10 reps. Intermittent rest breaks provided. Cues for improved ROM, technique and progression of exercises throughout. Patient requiring multiple tactile cues for re-initiation and completion of exercises. Patient voiced no c/o this date. Patient supine in bed at session end with call light and tray table within reach. Farrah Perea PTA
[2019-09-17 16:00] VITALS: BP 138/54
--- NOTE | 2019-09-17 17:28 | NUR ---
PT MEDICATED WITH PO TYLENOL PER PRN ORDER FOR C/O HEADACHE. WILL MONITOR EFFECTIVENESS.
[2019-09-17 20:00] VITALS: BP 138/69
--- NOTE | 2019-09-17 20:00 | NUR ---
RESTING IN BED WITH HOB SLIGHTLY ELEVATED. PT. VOICES NO C/O AT THIS TIME; CALL LIGHT WITHIN REACH.
--- NOTE | 2019-09-17 22:00 | NUR ---
TOOK PO MEDICATIONS WITHOUT DIFFICULTY. VOICES NO C/O AT THIS TIME. CALL LIGHT WITHIN REACH.
--- NOTE | 2019-09-18 04:00 | NUR ---
RESTING IN BED WITH EYES CLOSED. BED ALARM INTACT; CALL LIGHT WITHIN REACH.
[2019-09-18 07:03] LABS: BASO % 0.4 % (0.0-1.0); EOS # 0.1 10*3/uL (0.0-0.4); EOS % 2.1 % (1.0-4.0); HEMATOCRIT 32.2 % (37.0-47.0); HEMOGLOBIN 10.5 g/dl (12.0-16.0); LYMPH # 2.5 10*3/uL (1.3-4.4); LYMPH % 51.7 % (27.0-41.0); MEAN CELL VOLUME 103.9 fl (81.0-99.0); MEAN CORPUSCULAR HGB 33.9 pg (27.0-31.0); MEAN CORPUSCULAR HGB CONC 32.6 g/dl (33.0-37.0); MEAN PLATELET VOLUME 10.4 fl (9.6-12.3); MONO # 0.3 10*3/uL (0.1-1.0); MONO % 5.4 % (3.0-9.0); NEUT # 1.9 10*3/uL (2.3-7.9); NEUT % 39.8 % (47.0-73.0); PLATELET COUNT AUTOMATED 169 10*3/uL (130-400); RED CELL DISTRI WIDTH 16.6 % (0-14.5); WHITE BLOOD COUNT 4.8 10*3/uL (4.8-10.8)
[2019-09-18 07:22] LABS: BUN 14 mg/dl (7-24); CHLORIDE 109 mmol/L (98-107); CREATININE 1.04 mg/dL (0.55-1.02); POTASSIUM 3.6 mmol/L (3.5-5.1); SODIUM 142 mmol/L (136-145)
--- NOTE | 2019-09-18 07:54 | NUR ---
24 HR chart check completed.
[2019-09-18 08:00] VITALS: BP 142/75
--- NOTE | 2019-09-18 09:00 | NUR ---
SLEEPING, AWAKENS EASILY. RESPIRATIONS EASY. LUNGS DIMINISHED. PULSE OX 100% RA. FACE ECCHYMOTIC. TEDS IN PLACE. CALL LIGHT WITHIN REACH. NO VOICED COMPLAINTS. BED ALARM MAINTAINED FOR SAFETY
[2019-09-18 12:00] VITALS: BP 107/89
--- NOTE | 2019-09-18 15:30 | NUR ---
VISITING WITH FAMILY. NO DISTRESS NOTED
[2019-09-18 16:00] VITALS: BP 102/70; BP 98/77
--- NOTE | 2019-09-18 19:00 | NUR ---
SLEEPING. NO DISTRESS NOTED. BED ALARM MAINTAINED
--- NOTE | 2019-09-18 19:44 | NUR ---
PATIENT IS RESTING IN BED WITH EASY AND REGULAR RESPERS ON ROOM AIR. ASSESSMENT IS COMPLETE WITH NO C/O OR S/S OF DISTRESS NOTED AT THIS TIME. BED IS LOW, LOCKED, ALARMED, AND CALL LIGHT IS WITHIN REACH. SEE SHIFT ASSESSMENT.
[2019-09-18 20:00] VITALS: BP 118/65
[2019-09-19] VITALS: BP 114/59
--- NOTE | 2019-09-19 | NUR ---
PATIENT SLEEPING. RESPERS EASY AND REGULAR. CALL LIGHT IS WITHIN REACH.
--- NOTE | 2019-09-19 03:41 | NUR ---
PATIENT C/O HUNGER, BOX LUNCH PROVIDED. CALL LIGHT IS WITHIN REACH.
--- NOTE | 2019-09-19 03:47 | NUR ---
CHART CHECK COMPLETE.
--- NOTE | 2019-09-19 04:54 | NUR ---
Upon discharge recommend patient to follow up for wound care in outpatient setting continue current wound care orders at discharging facility.
[2019-09-19 06:43] LABS: BASO % 0.3 % (0.0-1.0); EOS # 0.1 10*3/uL (0.0-0.4); EOS % 1.3 % (1.0-4.0); HEMATOCRIT 34.1 % (37.0-47.0); HEMOGLOBIN 11.3 g/dl (12.0-16.0); LYMPH % 48.5 % (27.0-41.0); MEAN CELL VOLUME 103.6 fl (81.0-99.0); MEAN CORPUSCULAR HGB 34.3 pg (27.0-31.0); MEAN CORPUSCULAR HGB CONC 33.1 g/dl (33.0-37.0); MEAN PLATELET VOLUME 10.5 fl (9.6-12.3); MONO # 0.3 10*3/uL (0.1-1.0); NEUT # 2.7 10*3/uL (2.3-7.9); NEUT % 44.3 % (47.0-73.0); PLATELET COUNT AUTOMATED 209 10*3/uL (130-400); RED BLOOD COUNT 3.29 10*6/uL (4.10-5.10); RED CELL DISTRI WIDTH 16.5 % (0-14.5); WHITE BLOOD COUNT 6.2 10*3/uL (4.8-10.8)
[2019-09-19 07:08] LABS: CREATININE 1.13 mg/dL (0.55-1.02); POTASSIUM 4.5 mmol/L (3.5-5.1)
[2019-09-19 08:00] VITALS: BP 116/66; BP 136/54
--- NOTE | 2019-09-19 09:00 | NUR ---
Textile Technologist in to see patient. No new needs or request. When medically stable and auth is received she will be discharged to [facility]. environmental emergencies planner following.
--- NOTE | 2019-09-19 09:43 | NUR ---
OT NOTE PATIENT SEEN 1:1 OT THIS DATE 23 MINUTES. PATIENT INDENTIFIED BY NAME AND DATE OF . COMPLETED SUPINE TO SIT EOB MIN A WITH MIN VERBAL CUES RAIL SUPPORT. COMPLETED SIT TO STAND FROM BED MIN A. COMPLETED DYNAMIC STAND BALANCE USE FWW SUPPORT 30 SECOND TOLERANCE WITH FATIGUE NOTED AND NEED SEATED REST BREAK. PATIENT COMPLETED UB DRESSING GOWN MOD A AND LB DRESSING MAX A WITH PATIENT DEMONSRATING DIFFICULTY REACHING BILATERAL FEET AND LOSS BALANCE X 1 CGA RECOVER WHILE PULLING DEPENDS OVER BILATERAL HIPS. EDUCATED PATIENT USE FWW SUPPORT COMPLETING ONE HANDED TECHNIQUE/MANAGMENT OF CLOTHING WHILE STANDING. PATIENT COMPLETED GROOMING TASK SEATED IN RECLINER SBA AFTER ANDREW. COMPLETED SIT TO STAND FROM RECLINER MOD A WITH MIN VERBAL CUES PROPER HAND PLACEMENT. PATIENT SEATED IN RECLINER END OF SESSION THIS DATE WITH LEGS ELEVATED AND CHAIR ALARM INTACT. NO FURTHER NEEDS VERBALIZED. CONTINUE TOWARDS PLAN OF CARE. RENEE LANDAVERDE/Sindy
--- NOTE | 2019-09-19 09:52 | NUR ---
Nutritional Support Services Note: Pt appetite is good. Scab noted to left knee. Refuses a supplement at this time. Will provide pt iwth a night snack. Pt receives a regular diet as ordered. Will follow as needed. Estefania Bronson Rdn Ld
--- NOTE | 2019-09-19 11:00 | NUR ---
PHYSICAL THERAPY Patient seen this am 1:1 for therapy visit and was sitting up in bedside chair upon therapist arrival. Patient identified by name / and was very [place] this session. Patient was pleasant, but needed multiple, repeated v/c's to complete all therapy task secondary to [place]. Patient transfers sit to stand MOD A x 1, demonstrating very slow initial rise, tolerating approx 1 minute static stand. Patient also able to amublate 15'x 1, wh walker, MIN A, demonstrating "slouched" standing posture, decreased stride, very slow antelmo and quick onset of fatigue. Patient returned to bedside chair and remained with call light, tray table and body alarm. Patient resting HR 85 bpm and increased to 104 bpm during gait ex. Will continue per POC as tolerated, total treatment time 14 minutes. Trey Kraft, FIRER BOILER
[2019-09-19 12:00] VITALS: BP 132/65
--- NOTE | 2019-09-19 14:00 | NUR ---
updated clinicals and pt/ot notes faxed to [facility] to continue precert. Waiting for auth.
--- NOTE | 2019-09-19 14:07 | NUR ---
PT REQUESTED AND WAS MEDICATED WITH TYLENOL FOR C/O HEADACHE. CALL LIGHT IN REACH. WILL MONITOR
[2019-09-19 16:00] VITALS: BP 127/60
--- NOTE | 2019-09-19 17:35 | NUR ---
SPOKE WITH NANCIE AT [facility]. SHE STATES AUTH IS APPROVED FOR [facility] REFERENCE # [id number]. HER CONTACT NUMBER IS [phone]
--- NOTE | 2019-09-19 19:50 | NUR ---
24 HR chart check completed.
[2019-09-19 20:00] VITALS: BP 130/68; BP 131/95
--- NOTE | 2019-09-19 21:00 | NUR ---
RESTING IN BED WITH EYES CLOSED AND NO ACUTE DISTRESS NOTED. RESPIRATIONS EASY. LUNGS DIMINISHED, CLEAR. PULSE OX 96% RA. INFREQUENT COUGH. TEDS IN PLACE. CALL LIGHT WITHIN REACH. NO VOICED COMPLAINTS. BED ALARM MAINTAINED
[2019-09-20] VITALS: BP 140/77
--- NOTE | 2019-09-20 | NUR ---
SLEEPING. RESPIRATIONS EASY. VSS. CALL LIGHT WITHIN REACH. BED ALARM MAINTAINED
[2019-09-20 05:50] LABS: BASO % 0.6 % (0.0-1.0); EOS # 0.1 10*3/uL (0.0-0.4); EOS % 1.6 % (1.0-4.0); HEMATOCRIT 31.6 % (37.0-47.0); HEMOGLOBIN 10.6 g/dl (12.0-16.0); LYMPH # 2.8 10*3/uL (1.3-4.4); LYMPH % 54.2 % (27.0-41.0); MEAN CELL VOLUME 103.9 fl (81.0-99.0); MEAN CORPUSCULAR HGB 34.9 pg (27.0-31.0); MEAN CORPUSCULAR HGB CONC 33.5 g/dl (33.0-37.0); MEAN PLATELET VOLUME 10.3 fl (9.6-12.3); MONO # 0.3 10*3/uL (0.1-1.0); MONO % 5.7 % (3.0-9.0); NEUT # 1.9 10*3/uL (2.3-7.9); NEUT % 37.3 % (47.0-73.0); PLATELET COUNT AUTOMATED 181 10*3/uL (130-400); RED BLOOD COUNT 3.04 10*6/uL (4.10-5.10); RED CELL DISTRI WIDTH 16.9 % (0-14.5); WHITE BLOOD COUNT 5.1 10*3/uL (4.8-10.8)
[2019-09-20 05:58] LABS: CREATININE 1.11 mg/dL (0.55-1.02); POTASSIUM 4.6 mmol/L (3.5-5.1)
--- NOTE | 2019-09-20 06:00 | NUR ---
SLEPT THROUGHOUT NIGHT WITH NO DISTRESS NOTED. RESPIRATIONS EASY. CALL LIGHT WITHIN REACH. NO VOICED COMPLAINTS THIS SHIFT
[2019-09-20 08:00] VITALS: BP 116/90
--- NOTE | 2019-09-20 08:17 | NUR ---
Notified Dr. Swanson patient can be discharged to [facility] when medically stable as authorization has been received.
--- NOTE | 2019-09-20 10:10 | NUR ---
OT NOTE Pt was seen this A.M. 1:1 for 20 minute OT session. Upon arrival pt was supine in bed. Pt identified by name and and had no complaints at this time. Pt presented to therapy on room air with 2L-O2 via NC on the floor. SpO2 checked and was at 80%, notified pt's nurse and pt was placed on the 2L-O2 which she remained on throughout the rest of the session, after aprox 2-3 minutes pt's SpO2 raised to 100%. Pt transferred supine to sit EOB with Saul for assist with UB. Pt completed multiple sit to stand transfers from bed level with Saul and use of w/w for UE support. Challenged pt's static standing tolerance needed for increased I in self care tasks and functional transfers, pt was able to tolerate aprox 30-40 seconds at a time before sitting due to fatigue. Standing pivot completed from the EOB to the recliner with CGA and use of w/w. Pt was left sitting upright in the recliner with call light in hand, tray table in place, and body alarm activated for safety. Continue with rec D/C plan to SNF. SAIMA Oliver/Sindy
--- NOTE | 2019-09-20 10:26 | NUR ---
PHYSICAL THERAPY TREATMENT TIME: 09:47 - 10:10 AM 23 MINUTES Patient presented to therapy in supine with head of bed elevated and on 2 liters of O2 that she was not wearing at the time. Patient gives informed consent for treatment. Patient was identified by name and on wristband. Patient has no complaints. ORTHO SHOES placed on patient's feet. Patient transfers supine to sitting at EOB with MIN A X 1. Patient sit to stand from EOB with MIN A X 2 with verbal cues for pushing off bed with hands and locking knees into extension upon standing. Patient stand pivot to in front of bed side chair with Wh Walker and CGA X 2 with verbal cues for upright posture. Patient sit to stand out of bedside chair with MIN A X 2 with verbal cues for pushing off armrests of chair with hands and for scooting to the edge of chair before standing. Patient stood for 30 to 40 seconds at a time for 2 seperate stands with CGA X 2. Patient was left in sitting in bedside chair with LEs lowered, chair alarm tested and attached to patient and call light within reach. Patient was 1:1 with this REAL ESTATE APPRAISER SUPERVISOR for 23 minutes total. VIVI BURT REAL ESTATE APPRAISER SUPERVISOR
[2019-09-20 12:00] VITALS: BP 127/62
--- NOTE | 2019-09-20 14:51 | NUR ---
Notified Dr. Sevilla when patient is medically stable she can be discharged to [facility]. account planner following.
[2019-09-20] MEDS ORDERED: ZITHROMAX250 MG PO (15:13)
[2019-09-20] MEDS ORDERED: CEFTRIAXONE1 GM IV (15:13)
--- NOTE | 2019-09-20 15:30 | NUR ---
Patient is discharged to [facility] via [facility] at 5PM. NH, nursing/stewarding supervisor and sister hunter all notified.
[2019-09-20 16:00] VITALS: BP 142/59
--- NOTE | 2019-09-20 16:15 | NUR ---
OCCUPATIONAL THERAPY CO-SIGN I approve of the Occupational Therapy notes written above. NORA LAI, OTR/L
--- NOTE | 2019-09-20 17:00 | NUR ---
ATTEMPTED TO CALL REPORT TO [facility] BEFORE PT DEPARTURE WITH NO ANSER. MESSAGE LEFT ON PEDIATRIC GENETICIST CART VOICEMAIL.
--- NOTE | 2019-09-20 17:05 | NUR ---
PT TRANSFERRED TO [facility] AT THIS TIME VIA [facility]. HEPLOCK AND DATA INTEGRITY CONSULTANT DC'D. DISCHARGE PACKET GIVEN TO EMT.
--- NOTE | 2019-09-21 07:56 | NUR ---
PHYSICAL THERAPY CO-SIGN I approve of the Physical Therapy notes written above. Rosemary Seay PT
== END 2019-09-20 17:05 | disposition other institution (70) | DRG 177 ==
LOC: ED 13:14 → 5E 19:06 → EDHOLD 19:06 → 5E 19:25
PROVIDERS: Emergency Medicine; Hospitalist; Internal Medicine; Internal Medicine Nephrology; ADMIT Internal Medicine
DX: J69.0 Pneumonitis due to inhalation of food and vomit (principal); G93.41 Metabolic encephalopathy; N17.0 Acute kidney failure with tubular necrosis; E43 Unspecified severe protein-calorie malnutrition; N39.0 Urinary tract infection, site not specified; I48.21 Permanent atrial fibrillation; G40.909 Epilepsy, unspecified, not intractable, without status epilepticus; K21.9 Gastro-esophageal reflux disease without esophagitis; I10 Essential (primary) hypertension; R73.9 Hyperglycemia, unspecified; S00.83XA Contusion of other part of head, initial encounter; Z96.649 Presence of unspecified artificial hip joint; Z96.651 Presence of right artificial knee joint; D53.9 Nutritional anemia, unspecified; E66.3 Overweight; E55.9 Vitamin D deficiency, unspecified; R26.2 Difficulty in walking, not elsewhere classified; X58.XXXA Exposure to other specified factors, initial encounter; Z79.01 Long term (current) use of anticoagulants; S22.39XD Fracture of one rib, unspecified side, subsequent encounter for fracture with routine healing; Z88.5 Allergy status to narcotic agent; Z79.899 Other long term (current) drug therapy; Z98.84 Bariatric surgery status; Z83.3 Family history of diabetes mellitus; Z82.49 Family history of ischemic heart disease and other diseases of the circulatory system; Z68.29 Body mass index [BMI] 29.0-29.9, adult; Y93.89 Activity, other specified; Y92.89 Other specified places as the place of occurrence of the external cause; Y99.8 Other external cause status

== ENCOUNTER 2019-09-25 15:07 | Inpatient (IN) | payer MEDICARE ==
[~2019-09-25] VITALS: Ht 152.4 cm; Wt 82.1 kg
[2019-09-25] VITALS (13 sets, daily range): BP systolic 110–157; BP diastolic 36–74
[~2019-09-25 15:07] MED LIST changes: +CEFTRIAXONE1 GM IV; +FOSAMAX70 M1 PO; +IMODIUM A-D2 M2 PO; +MULTIVITAMINS1 EAC5 PO; +OYSTER SHELL 51 EACH PO; +ZITHROMAX250 MG PO
[2019-09-25 16:05] LABS: MEAN CORPUSCULAR HGB 35.3 pg (27.0-31.0); MEAN CORPUSCULAR HGB CONC 32.4 g/dl (33.0-37.0); MEAN PLATELET VOLUME 11.1 fl (9.6-12.3); NUCLEATED RED BLOOD CELL 0.3 % (0.0-0.0); PLATELET COUNT AUTOMATED 154 10*3/uL (130-400); RED BLOOD COUNT 1.56 10*6/uL (4.10-5.10); RED CELL DISTRI WIDTH 17.2 % (0-14.5); WHITE BLOOD COUNT 11.3 10*3/uL (4.8-10.8)
[2019-09-25 16:11] LABS: HEMOGLOBIN 5.5 g/dl (12.0-16.0)
[2019-09-25 16:22] LABS: ACT PARTIAL THROMBO TIME 30.3 SECONDS (20.0-32.1); INTERNATIONAL NORM RATIO 1.3 (2.0-3.5)
[2019-09-25 16:24] LABS: ALBUMIN 2.5 gm/dl (3.1-4.5); ALKALINE PHOSPHATASE 81 U/L (45-117); BUN 18 mg/dl (7-24); CHLORIDE 109 mmol/L (98-107); CREATININE 1.88 mg/dL (0.55-1.02); LIPASE 51 U/L (73-393); POTASSIUM 3.8 mmol/L (3.5-5.1); SGOT/AST 53 IU/L (3-35); SGPT/ALT 28 U/L (12-78); SODIUM 141 mmol/L (136-145); TOTAL PROTEIN 5.6 gm/dL (6.4-8.2)
[2019-09-25 16:27] LABS: TROPONIN I < 0.015 ng/ml (<0.045)
[2019-09-25 16:29] LABS: TOTAL CELLS COUNTED 100 #CELLS
[2019-09-25 16:30] LABS: PLATELET SUFFICIENCY NORMAL (NORMAL)
[2019-09-25 16:31] LABS: TARGET CELLS FEW
[2019-09-25 17:17] LABS: BILIRUBIN NEGATIVE (NEGATIVE); BLOOD NEGATIVE (NEGATIVE); CLARITY CLEAR (CLEAR); COLOR YELLOW (YELLOW); GLUCOSE NEGATIVE (NEGATIVE); KETONE NEGATIVE (NEGATIVE); LEUKO ESTERASE NEGATIVE (NEGATIVE); SPECIFIC GRAVITY 1.025 (1.005-1.030); UROBILINOGEN 0.2 E.U./dl (0.2-1.0)
[2019-09-25 17:18] LABS: NITRITE POSITIVE (NEGATIVE)
[2019-09-25 17:19] LABS: BACTERIA 2+; MUCOUS 2+
--- NOTE | 2019-09-25 18:30 | NUR ---
A 69, admitted to ICCU, under the services of RAFITA Amaro MD with a diagnosis of ALEJANDRO. Chief complaint is SENT FROM [facility]. Patient arrived via stretcher from ER. Monitor applied. Initial assessment completed. Vital signs taken and recorded. RAFITA AMARO MD notified of admission to the unit. Orders received. See assessment for past medical history, medications and allergies. Patient and/or family oriented to unit. [facility] ICCU visitation policy reviewed. Clothing/patient valuable form completed. AMANDA MYRICK
--- NOTE | 2019-09-25 20:29 | NUR ---
1929 DR. GUPTA CALLED FOR ORDERS. ORDERS RECEIVED. BLOOD TRANSFUSING WELL.VS STABLE. SEE TAR FOR ALL APPROPRIATE VS. 1999 INCONTINENT OF MODERATE AMOUNT BROWN LIQUID STOOL. COMPLETE BED BATH GIVEN AND LINENS CHANGED. COLOR REMAINS PALE. HEP LOCK INTACT RA. NO C/OS VOICED AT PRESENT. ABD SOFT. DR. TEE NOTIFIED OF CONSULT. ORDERS RECEIVED.
--- NOTE | 2019-09-25 21:14 | NUR ---
2044 1ST UNIT OF PRBC'S DONE. TOLERATED WELL. SEE TAR FOR ALL VS.
--- NOTE | 2019-09-25 21:53 | NUR ---
2134 2ND UNIT OF PRBC'S STARTED AFTER PROPER IDENTIFICATION PER 2 RN'S. SEE TAR FOR ALL VS. PT REMAINS WIHTOUT C/O'S.
[2019-09-26] VITALS: BP 148/78
--- NOTE | 2019-09-26 00:35 | NUR ---
09/25/19 2345 2ND UNIT OF PRBC'S DONE. TOLERATED WELL. 0000 IV FLUIDS RESUMED - NSS AT 80CC/HR. RESTING IN BED WITH EYES CLOSED. APPEARS TO BE SLEEPING.
--- NOTE | 2019-09-26 03:42 | NUR ---
INCONTINENT OF URINE. VIMAL CARE DONE AND LINENS CHANGED. REPOSITIONED ON LEFT SIDE. CONFUSED. RESTLESS WHEN AWAKENED.
[2019-09-26 04:00] VITALS: BP 164/48
[2019-09-26 05:42] LABS: CREATININE 1.47 mg/dL (0.55-1.02); PHOSPHOROUS 3.6 mg/dL (2.5-4.9); POTASSIUM 3.6 mmol/L (3.5-5.1)
--- NOTE | 2019-09-26 06:09 | NUR ---
RSTING IN BED WITH EYES CLOSED. APPEARS TO BE SLEEPING. IV FLUIDS CONT. NO DISTRESS NOTED. CONDITION GUARDED.
[2019-09-26 06:14] LABS: BASO % 0.2 % (0.0-1.0); HEMATOCRIT 24.9 % (37.0-47.0); HEMOGLOBIN 8.4 g/dl (12.0-16.0); LYMPH # 1.7 10*3/uL (1.3-4.4); LYMPH % 15.8 % (27.0-41.0); MEAN CORPUSCULAR HGB 31.8 pg (27.0-31.0); MEAN CORPUSCULAR HGB CONC 33.7 g/dl (33.0-37.0); MEAN PLATELET VOLUME 11.8 fl (9.6-12.3); MONO # 0.6 10*3/uL (0.1-1.0); NEUT # 8.1 10*3/uL (2.3-7.9); NUCLEATED RED BLOOD CELL 0.2 % (0.0-0.0); PLATELET COUNT AUTOMATED 137 10*3/uL (130-400); RED BLOOD COUNT 2.64 10*6/uL (4.10-5.10); RED CELL DISTRI WIDTH 23.2 % (0-14.5); WHITE BLOOD COUNT 10.5 10*3/uL (4.8-10.8)
[2019-09-26 06:16] LABS: MEAN CELL VOLUME 94.3 fl (81.0-99.0)
--- NOTE | 2019-09-26 07:47 | NUR ---
NILAY BARR [id number] Please refer to the physician's history and physical for past medical history, comorbid conditions, and allergies. Diagnosis: ALEJANDRO UTI SHINGLES ANEMIA SEVERE SEPSIS Duane Score: 13,MODERATE RISK WOUND DESCRIPTIONS: Wound Number: 1 Location of the wound: top of left foot Type of wound: stage 2 Thickness: Partial Size: 1.2cm x 1.0cm x 0.1cm Tunneling: none Undermining: none Sinus Tract: none Presence of Exudate: none Amount: None Color: [place] Odor: None Periwound Skin Appearance: Normal Wound edges: intact serum filled blister Pain (associated with wound): none at time of assessment How does patient state this happened? pt unable to state how this happened Surface the patient is resting on: Isoflex SKIN PREVENTION RECOMMENDATION: 1. Pressure redistribution support surface as appropriate 2. Elevate heels 3. Remove boots/TEDS every shift and reapply 4. Head of bed 30 degrees as tolerated 5. Assess nutrition and hydration 6. Manage moisture 7. Avoid the use of containment devices while in bed 8. Use absorptive products on surfaces limit layers of linens on bed 9. Turn and reposition every 1-2 hours in bed and every 1 hour in chair as tolerated 10. Weight shifts every 15 minutes while up in chair 11. Offloading with pillows or device to keep heels elevated off bed 12. Monitor skin at least every shift 13. Inspect under medical devices twice a day WOUND TREATMENT RECOMMENDATIONS: Stage 2 guidelines: Apply sureprep to top of right foot allow time to dry then cover with optifoam gentle. Heel raiser pro boots to bilateral feet while in bed.
[2019-09-26 08:00] VITALS: BP 104/57
--- NOTE | 2019-09-26 08:10 | NUR ---
Nursing screen received and chart reviewed. Patient admitted from [facility] for abdominal pain. If patient has a decline in ADLs, functional transfers, or mobility, please send OT orders. Thank you. Cherelle Rain, OTR/L
--- NOTE | 2019-09-26 08:21 | NUR ---
PHYSICAL THERAPY Screen received pt from [facility] admit with abdominal pain please consult PT if pt's functional status declines from baseline, thank you Rosemary Seay PT
--- NOTE | 2019-09-26 09:00 | NUR ---
Fixture Maker in to see patient. She is currently short term at [facility] and plans to return there upon discharge. facility planner following. When medically stable and precert is received she will be discharged to [facility].
--- NOTE | 2019-09-26 09:34 | NUR ---
Spoke with Dr. Swanson regarding wound care recommendations he stated to go ahead and put them in.
--- NOTE | 2019-09-26 11:30 | NUR ---
PT UNABLE TO LIE ON BACK, CONSTANTLY MOVES OFF BACK TO EITHER SIDE, WITH LEGS BENT UP-DENIES PAIN WHEN ASKED, PO MEDS HELD, PT UNWILLING TO TAKE
[2019-09-26 12:00] VITALS: BP 104/52
--- NOTE | 2019-09-26 12:45 | NUR ---
dr artis here, updated on extensive bruising on abd and right kidney area yhe abd bruising has double in size and darkness of the bruising
--- NOTE | 2019-09-26 13:50 | NUR ---
to ct via bed
[2019-09-26 15:48] LABS: BASO % 0.1 % (0.0-1.0); HEMATOCRIT 24.3 % (37.0-47.0); HEMOGLOBIN 8.2 g/dl (12.0-16.0); LYMPH # 1.8 10*3/uL (1.3-4.4); LYMPH % 18.3 % (27.0-41.0); MEAN CELL VOLUME 94.2 fl (81.0-99.0); MEAN CORPUSCULAR HGB 31.8 pg (27.0-31.0); MEAN CORPUSCULAR HGB CONC 33.7 g/dl (33.0-37.0); MEAN PLATELET VOLUME 11.7 fl (9.6-12.3); MONO # 0.5 10*3/uL (0.1-1.0); MONO % 5.1 % (3.0-9.0); NEUT # 7.4 10*3/uL (2.3-7.9); NEUT % 75.7 % (47.0-73.0); NUCLEATED RED BLOOD CELL 0.4 % (0.0-0.0); PLATELET COUNT AUTOMATED 138 10*3/uL (130-400); RED BLOOD COUNT 2.58 10*6/uL (4.10-5.10); RED CELL DISTRI WIDTH 23.7 % (0-14.5); WHITE BLOOD COUNT 9.7 10*3/uL (4.8-10.8)
[2019-09-26 16:00] VITALS: BP 133/48
[2019-09-26 20:00] VITALS: BP 156/53
[2019-09-27] VITALS: BP 108/40
[2019-09-27 04:00] VITALS: BP 119/66
--- NOTE | 2019-09-27 04:34 | NUR ---
Upon discharge recommend patient to follow up for wound care in outpatient setting continue current wound care orders at discharging facility.
[2019-09-27 04:41] LABS: BASO % 0.2 % (0.0-1.0); HEMATOCRIT 27.1 % (37.0-47.0); HEMOGLOBIN 8.9 g/dl (12.0-16.0); LYMPH # 2.4 10*3/uL (1.3-4.4); LYMPH % 26.8 % (27.0-41.0); MEAN CELL VOLUME 95.1 fl (81.0-99.0); MEAN CORPUSCULAR HGB 31.2 pg (27.0-31.0); MEAN CORPUSCULAR HGB CONC 32.8 g/dl (33.0-37.0); MEAN PLATELET VOLUME 11.5 fl (9.6-12.3); MONO # 0.4 10*3/uL (0.1-1.0); MONO % 4.1 % (3.0-9.0); NEUT % 68.2 % (47.0-73.0); NUCLEATED RED BLOOD CELL 0.2 % (0.0-0.0); PLATELET COUNT AUTOMATED 157 10*3/uL (130-400); RED BLOOD COUNT 2.85 10*6/uL (4.10-5.10); RED CELL DISTRI WIDTH 23.8 % (0-14.5); WHITE BLOOD COUNT 8.8 10*3/uL (4.8-10.8)
[2019-09-27 04:55] LABS: ACT PARTIAL THROMBO TIME 31.6 SECONDS (20.0-32.1); INTERNATIONAL NORM RATIO 1.1 (2.0-3.5)
[2019-09-27 04:59] LABS: ALBUMIN 2.3 gm/dl (3.1-4.5); CREATININE 1.21 mg/dL (0.55-1.02); PHOSPHOROUS 2.6 mg/dL (2.5-4.9); POTASSIUM 3.5 mmol/L (3.5-5.1); TOTAL PROTEIN 5.5 gm/dL (6.4-8.2)
[2019-09-27 08:00] VITALS: BP 108/57
--- NOTE | 2019-09-27 08:45 | NUR ---
PHYSICAL THERAPY Rohini completed full report to follow recomend SNF at discharge moderate level of complexity 19357. PT to work on tranfers, balance,amb and strengthening. Rosemary Seay PT
--- NOTE | 2019-09-27 08:50 | NUR ---
Occupational therapy orders received and OT evaluation completed in full in the ICCU. Patient precautions include fall risk, A&Ox1, bed/chair alarm, ww use, and impulsive. Per OT eval, OT recommends patient return to SNF. Patient would benefit from continued OT treatment to maximize safety and independence with ADLs, transfers, and mobility[place], [address]. Thank you for the referral. Cherelle Rain, OTR/L
--- NOTE | 2019-09-27 09:34 | NUR ---
PHYSICAL THERAPY IN TO SEE PT. PT UP TO CHAIR WITH 2 ASSIST.
--- NOTE | 2019-09-27 10:00 | NUR ---
PT REFUSED DRESSING TO FOOT.
--- NOTE | 2019-09-27 10:30 | NUR ---
Corporate Claims Examiner in to see patient. She is sitting up in her bedside chair. She is very [place]. When medically stable and precert is received she will be discharged to [facility]. habitat conservation planner following.
[2019-09-27 12:00] VITALS: BP 106/61
--- NOTE | 2019-09-27 12:10 | NUR ---
DR GUPTA IN TO SEE PT.
--- NOTE | 2019-09-27 12:50 | NUR ---
OT NOTE Attempted to see pt this P.M. for OT session and upon arrival pt had just returned supine in bed with assist from nursing. Will check back at a later time/date and continue with POC as able. SAIMA Oliver/Sindy
--- NOTE | 2019-09-27 12:51 | NUR ---
PT BACK TO BED WITH 2 ASSIST.
--- NOTE | 2019-09-27 13:07 | NUR ---
DR TEE IN TO SEE PT.
[2019-09-27 16:00] VITALS: BP 135/54
--- NOTE | 2019-09-27 18:32 | NUR ---
Patient resting quietly with no c/o discomfort. Respirations easy and regular. Vital signs stable. No overt distress. MOLLY ARENAS
[2019-09-27 20:00] VITALS: BP 105/72; BP 110/68
[2019-09-28] VITALS: BP 118/53
--- NOTE | 2019-09-28 03:32 | NUR ---
24 HR chart check completed.
[2019-09-28 07:51] LABS: BASO % 0.1 % (0.0-1.0); HEMATOCRIT 28.5 % (37.0-47.0); HEMOGLOBIN 9.3 g/dl (12.0-16.0); LYMPH # 2.3 10*3/uL (1.3-4.4); LYMPH % 31.6 % (27.0-41.0); MEAN CELL VOLUME 96.6 fl (81.0-99.0); MEAN CORPUSCULAR HGB 31.5 pg (27.0-31.0); MEAN CORPUSCULAR HGB CONC 32.6 g/dl (33.0-37.0); MEAN PLATELET VOLUME 11.1 fl (9.6-12.3); MONO # 0.3 10*3/uL (0.1-1.0); MONO % 3.6 % (3.0-9.0); NEUT # 4.7 10*3/uL (2.3-7.9); NEUT % 64.2 % (47.0-73.0); NUCLEATED RED BLOOD CELL 0.1 10*3/uL (0.0-0.0); NUCLEATED RED BLOOD CELL 0.7 % (0.0-0.0); PLATELET COUNT AUTOMATED 169 10*3/uL (130-400); RED BLOOD COUNT 2.95 10*6/uL (4.10-5.10); RED CELL DISTRI WIDTH 22.6 % (0-14.5); WHITE BLOOD COUNT 7.3 10*3/uL (4.8-10.8)
[2019-09-28 08:00] VITALS: BP 108/72
[2019-09-28 08:07] LABS: CREATININE 1.12 mg/dL (0.55-1.02); POTASSIUM 3.4 mmol/L (3.5-5.1)
[2019-09-28 08:09] LABS: INTERNATIONAL NORM RATIO 1.1 (2.0-3.5)
--- NOTE | 2019-09-28 08:11 | NUR ---
Patient comes in from [facility] term [facility]. Patient is ok to return, requires PT/OT evals and precert.
--- NOTE | 2019-09-28 11:30 | NUR ---
OT NOTE Pt was seen this A.M. 1:1 for 15 minute OT session. Upon arrival pt was sitting reclined in the recliner. Pt identified by name and and had complaints of feeling "totally exhausted". Pt completed BUE towel exercises over all planes of motion for 1 X 10 to increase and restore maximum functional use. After ther ex attempted to complete sit to stand from chair level and pt stated "I am too tired, I have no energy". Pt was left to rest sitting upright in the recliner with call light in hand, tray table in place, and body alarm activated for safety. Continue with rec D/C plan to SNF. SAIMA Oliver/Sindy
[2019-09-28 12:00] VITALS: BP 116/70
--- NOTE | 2019-09-28 12:37 | NUR ---
notified of patients discharge. Patient is a precert to return to [facility]. Faxed clinicals and PT/OT evals and asked to start precert. waiting for auth. If they receive auth later this afternoon they will notify ward maid.
--- NOTE | 2019-09-28 14:32 | NUR ---
OT Daily Note Pt seen this date for 15 mins of co treat with FLOOR COVERER. Patient was in bed when entering room. Pt was awakened and identified by name and date. Pt denies pain, but states "I just want to go home". Supine to sit at EOB with Min A to bring trunk up from mattress and verbal cues to bring BLE out of bed. SBA for balance while seated at EOB holding onto bed rail. Min A for STS from EOB. Min A for functional mobility from EOB to bathroom to stand at sink to wash her hands. Pt requires max verbal cuing for technique and fww positioning. When turning to leave bathroom, pt had a LOB that required assistance to recover. Min A for balance for functional mobility using fww from bathroom to sit at bed side chair with max verbal cuing for hand placement and safety when descending to sit in chair. Poor carry over. Set up assist to eat lunch. Pt remained in bed side chair twith call light with in reach and body alarm on. Continue with OT plan of care. SAIMA Young/Sindy
--- NOTE | 2019-09-28 14:45 | NUR ---
PHYSICAL THERAPY Patient seen this pm 1:1 for therapy visit and was supine in bed upon therapist arrival. Patient identified by name / and presented with bouts of increased confusion. OT assistant grocery was present for observation only during JUNIOR BUYER session as patient transfers supine to sit EOB with MOD A. Patient needed a minute or so to collect herself prior to performing sit to stand transfer with MIN A. Patient ambulates with use of wh walker, MIN A, 30'x 1, demonstrating bouts of impulsive behaviour, POOR walker safety / navigation and required several v/c's to focus on task. Patient returned to bedside chair and remained with call light, tray table, telephone and body alarm for safety. Will continue per POC as tolerated, total treatment time 14 minutes. Trey Kraft, JUNIOR BUYER
[2019-09-28 16:00] VITALS: BP 110/79
[2019-09-28 20:00] VITALS: BP 109/63
--- NOTE | 2019-09-28 20:05 | NUR ---
PATIENT ASSESSMENT COMPLETED WITHOUT INCIDENT, FAMILY AT BEDSIDE. PATIENT DENIES ANY PAIN OR SHORTNESS OF BREATH AT THIS TIME. IS REQUESTING TYLENOL FOR PAIN IN HER LEGS AND ABDOMEN AT THIS TIME. CALL LIGHT WITHIN REACH WILL CONTINUE TO MONITOR.
--- NOTE | 2019-09-28 20:41 | NUR ---
TYLENOL GIVEN AT THIS TIME FOR PAIN IN BLE AND ABDOMEN/BACK 03/02, PATIENT ALERT AND CONFUSED BUT ABLE TO BE REORIENTED, CALL LIGHT WITHIN REACH, WILL MONITOR
--- NOTE | 2019-09-28 21:40 | NUR ---
PATIENT RESTING IN A POSITION OF COMFORT IN BED WITH EYES CLOSED, RESPIRATIONS EASY AND NON-LABORED, NO SIGNS OR SYMPTOMS OR DISTRESS OR PAIN NOTED AT THIS TIME. CALL LIGHT WITHIN REACH, WILL CONTINUE TO MONITOR,
[2019-09-29] VITALS: BP 122/52
--- NOTE | 2019-09-29 01:28 | NUR ---
24 HOUR CHART CHECK COMPLETE
[2019-09-29 08:00] VITALS: BP 130/80
--- NOTE | 2019-09-29 08:36 | NUR ---
Spoke to daughter, Nichol, regarding CM receiving message that family did not want patient to return to [facility]. Nichol would like CM to try [facility] [place] [facility] [place]. Notified Dr. Sevilla.
--- NOTE | 2019-09-29 08:45 | NUR ---
PHYSICAL THERAPY Patient seen this am 1:1 for therapy visit and was supine in bed as breakfast tray arrived. Patient identified by name / and was joined by OT office manager executive assistant for observation only this session. Patient reports no new c/o's this mornng and transfers supine to sit EOB with MIN A. Patient performed sit to stand transfer MIN A and ambulated with use of wh walker, 10'x 1, CGA to bathroom. Patient ambulated additional 30'x 1, wh walker, CGA/MIN A, demonstrating bouts of unsteady gait pattern and very cautious during all turns. Patient needed v/c to improve safe walker navigation and returned to bedside chair to enjoy her breakfast. Patient remained with calll light, tray table, telephone and body alarm for safety. Will continue per POC as tolerated, total treatment time 14 minutes. Trey Kraft, WEBBING SEAMER POUND NET
--- NOTE | 2019-09-29 10:01 | NUR ---
OT NOTE PATIENT SEEN OT THIS DATE 10 MINUTES. PATIENT IDENTIFIED BY NAME AND DATE OF . PATIENT IN BED UPON ARRIVAL. COMPLETED SIT TO STAND FROM BED MIN A . COMPLETED FUNCTIONAL AMBULATION USE FWW TO BATHROOM MIN A TO MANAGE FWW ESPECIALLY WITH TURNS. PATIENT COMPLETED HAND WASHING TASK FREDRICK STANDING AT SINK WITH VERBAL CUES PROPER SEQUENCING WITH POOR CARRY OVER. PATIENT COMPLETED FUNCTIONAL AMBULATION USE FWW BATHROOM CGA TO RECLINER. PATIENT SEATED IN RECLINER WITH CALL LIGHT AND BED ALARM IN TACT. PATIENT CONSUMING BREAKFAST WITH NO OTHER NEEDS VERBALIZED. RENEE ALMENDAREZ
[2019-09-29 12:00] VITALS: BP 119/67
--- NOTE | 2019-09-29 12:49 | NUR ---
PATIENT STILL WAITING FOR RIDE TO [facility] [place] PROBLEM WITH THE AUTOMOTIVE REPAIR TECHNICIAN, PER [facility].
--- NOTE | 2019-09-29 13:05 | NUR ---
PHYSICAL THERAPY Patient seen this pm 1:1 for therapy visit and was sititng up in bedside chair following lunch upon therapist arrival. Patient identified by name / and presented with mild confusion. Patient needed multiple v/c's to complete all therapy task as she performed seated B LE therex, all planes, 2 x 10 reps each to increase LE strength. Patient also needed v/c to improve full AROM during LAQ and remained in bedside chair semi reclined, with call light, tray table, telephone and body alarm for safety. Will continue per POC as tolerated, total treatment time 14 minutes. Trey Kraft, DIRECTOR OF RELIGIOUS ACTIVITIES
--- NOTE | 2019-09-29 13:11 | NUR ---
Notified Odalys at [facility] and family wishing for patient not to return to [facility].
[2019-09-29 16:00] VITALS: BP 120/69
[2019-09-29 17:58] LABS: CREATININE 1.17 mg/dL (0.55-1.02)
--- NOTE | 2019-09-29 19:26 | NUR ---
24 HOUR CHART CHECK COMPLETE
[2019-09-29 20:00] VITALS: BP 111/71
[2019-09-30 06:55] LABS: BASO % 0.2 % (0.0-1.0); EOS % 0.2 % (1.0-4.0); HEMOGLOBIN 9.6 g/dl (12.0-16.0); LYMPH # 2.6 10*3/uL (1.3-4.4); LYMPH % 40.1 % (27.0-41.0); MEAN CELL VOLUME 99.3 fl (81.0-99.0); MEAN CORPUSCULAR HGB 31.8 pg (27.0-31.0); MEAN PLATELET VOLUME 11.1 fl (9.6-12.3); MONO # 0.3 10*3/uL (0.1-1.0); MONO % 4.5 % (3.0-9.0); NEUT # 3.5 10*3/uL (2.3-7.9); NEUT % 54.4 % (47.0-73.0); NUCLEATED RED BLOOD CELL 0.5 % (0.0-0.0); PLATELET COUNT AUTOMATED 194 10*3/uL (130-400); RED BLOOD COUNT 3.02 10*6/uL (4.10-5.10); RED CELL DISTRI WIDTH 22.2 % (0-14.5); WHITE BLOOD COUNT 6.4 10*3/uL (4.8-10.8)
--- NOTE | 2019-09-30 07:16 | NUR ---
[facility] is accepting patient. Starting precert.
--- NOTE | 2019-09-30 08:00 | NUR ---
IN PT ROOM AT THIS TIME, PT SEEMS A BIT CONFUSING AND REPEATS HERSELF SAYING THAT SHE WANTS TO BE SITTING IN HER CHAIR. ASSESSMENT IS COMPLETE AT THIS TIME. PT STATES SHE IS IN NO PAIN AND DOES NOT NEED ANYTHING AT THIS TIME. CALL LIGHT IS WITHIN REACH, WILL CONTINUE TO MONITOR
--- NOTE | 2019-09-30 08:40 | NUR ---
PHYSICAL THERAPY Patient seen this am 1:1 for therapy visit and was sitting up in bedside chair awaiting breakfast upon therapist arrival. Patient identified by name / and was joined by OT photography assistant who was present for observation only this session. Patient c/o repeatedly she wanted her Doctor to send her home and MAX encouragement to participate in therapy this morning. Patient agreed to and performed seated B LE therex, all planes, 2 x 10 reps each without c/o. Patient also completed several sit to stand transfers, MIN A, tolerating < 30 seconds static stand each trial before returning to bedside chair. Patient remained with call light, tray table, telephone and body alarm for safety. Will continue per POC as tolerated, total treatment time 17 minutes. Trey Kraft, MICROARRAY SPECIALIST
--- NOTE | 2019-09-30 10:13 | NUR ---
OT NOTE PATIENT COMPLETED 15 MINUTES OT THIS DATE. PATIENT IDENTIFIED BY NAME AND DATE OF . PATIENT SEATED IN RECLINER UPON ARRIVAL. PATIENT RELUCTANT TO COMPLETE THERAPY WITH EDUCATION COMPLETED AND PATIENT COMPLETING TO TOLERANCE. PATIENT COMPLETED UB DRESSING GOWN MOD A. COMPLETED SIT TO STAND FROM RECLINER WITH PATIENT EDUCATED COMPLETING STAND TOLERANCE USE FWW SUPPORT WITH PATIENT STANDING APPROX 10 SECONDS AND PATIENT STATING THAT WAS ALL SHE WAS GOING TO DO. PATIENT REQUESTED THAT SHE SIT IN RECLINER AND BE COVERED WITH A BLANKET. PATIENT SEATED IN RECLINER WITH CALL LIGHT IN PLACE AND CHAIR ALARM INTACT. RENEE ALMENDAREZ
--- NOTE | 2019-09-30 11:15 | NUR ---
Patient has received auth for [facility] and is ok to go to [facility] if medically stable for discharge.
--- NOTE | 2019-09-30 11:16 | NUR ---
Notified Dr. Noland patient has been accepted to [facility] and precert has been received. Patient can be discharged when medically stable,
[2019-09-30 12:00] VITALS: BP 113/59
--- NOTE | 2019-09-30 13:31 | NUR ---
Patient is discharged to [facility] via private car with sister Nichol. She will be here between 2:30 and 3:30. NH, nursing, rewards consultant and sister all notified.
--- NOTE | 2019-09-30 13:49 | NUR ---
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 I EXPLAINED HOW A PICTURE OF HER RIGHT FOOT NEEDS TO BE TAKEN, BUT PATIENT REFUSES STATING "I DONT NEED IT DONE, I JUST WANT MY SISTER TO GET ME OUT OF HERE". PT UNDERSTANDS THAT HE SISTER IS COMING WITHIN 1-2 HOURS TO BRING HER TO [facility]. PT HAS NO QUESTIONS AT THIS TIME.
--- NOTE | 2019-09-30 14:24 | NUR ---
Received call from sister, Nichol, to see if patient had clothes for transfer to [facility]. Checked with patient, in her closet, and in her bedside table found pink jogging pants and a pink t-shirt. Nichol asked about pink lisa tennis shoes and pink slippers. Explained could not find either shoes. She will bring shoes for discharge.
--- NOTE | 2019-09-30 15:01 | NUR ---
CALLED REPORT TO BRADFORD BLACKWOOD FROM [facility] TO GIVE REPORT
--- NOTE | 2019-09-30 15:03 | NUR ---
SISTER IS NOW PRESENT IN THE ROOM AND I WENT OVER DISCHARGE PLANNING WITH HER, SHE HAS NO QUESTIONS AT THE TIME AND VERBALIZES AGREEMENT
--- NOTE | 2019-09-30 15:20 | NUR ---
PT IS IN WHEELCHAIR LEAVING THE FLOOR AT THIS TIME WITH THE FAMILY, SHE HAS ALL HER BELONGINGS WITH HER
--- NOTE | 2019-09-30 16:33 | NUR ---
OCCUPATIONAL THERAPY CO-SIGN I approve of the Occupational Therapy notes written above. MIK RIOS OTR/Sindy
--- NOTE | 2019-09-30 16:34 | NUR ---
PHYSICAL THERAPY CO-SIGN I approve of the Physical Therapy notes written above. Rosemary Seay PT
== END 2019-09-30 15:20 | disposition other institution (70) | DRG 871 ==
LOC: ED 15:07 → 4E 17:32 → ICCU 17:32 → EDHOLD 17:32 → ICCU 17:54 → 4E 09-27 15:39
PROVIDERS: Hospitalist; Nurse Practitioner Family; ADMIT Internal Medicine
PROC: 30233N1 Transfusion of Nonautologous Red Blood Cells into Peripheral Vein, Percutaneous Approach (ICD-10-PCS; principal; 2019-09-25)
DX: A41.9 Sepsis, unspecified organism (principal); N17.0 Acute kidney failure with tubular necrosis; E43 Unspecified severe protein-calorie malnutrition; N30.00 Acute cystitis without hematuria; S36.62XA Contusion of rectum, initial encounter; R65.20 Severe sepsis without septic shock; E87.6 Hypokalemia; E83.42 Hypomagnesemia; E83.51 Hypocalcemia; D64.89 Other specified anemias; E87.8 Other disorders of electrolyte and fluid balance, not elsewhere classified; K21.9 Gastro-esophageal reflux disease without esophagitis; I48.0 Paroxysmal atrial fibrillation; G40.909 Epilepsy, unspecified, not intractable, without status epilepticus; M79.81 Nontraumatic hematoma of soft tissue; B02.9 Zoster without complications; N18.9 Chronic kidney disease, unspecified; I12.9 Hypertensive chronic kidney disease with stage 1 through stage 4 chronic kidney disease, or unspecified chronic kidney disease; R41.9 Unspecified symptoms and signs involving cognitive functions and awareness; Z96.649 Presence of unspecified artificial hip joint; Z96.659 Presence of unspecified artificial knee joint; X58.XXXA Exposure to other specified factors, initial encounter; Z68.35 Body mass index [BMI] 35.0-35.9, adult; Z79.01 Long term (current) use of anticoagulants; Z88.5 Allergy status to narcotic agent; Z98.84 Bariatric surgery status; Z82.49 Family history of ischemic heart disease and other diseases of the circulatory system; Z83.3 Family history of diabetes mellitus; Z79.899 Other long term (current) drug therapy; Y93.89 Activity, other specified

== ENCOUNTER 2019-10-15 12:14 | Emergency (ER) | payer MEDICARE | END 2019-10-15 15:15 | disposition other institution (70) | LOC: ED 12:14 | DX: S42.002A Fracture of unspecified part of left clavicle, initial encounter for closed fracture (principal); E03.9 Hypothyroidism, unspecified; F32.9 Major depressive disorder, single episode, unspecified; R56.9 Unspecified convulsions; K21.9 Gastro-esophageal reflux disease without esophagitis; M19.90 Unspecified osteoarthritis, unspecified site; I48.91 Unspecified atrial fibrillation; Z87.891 Personal history of nicotine dependence; Z88.5 Allergy status to narcotic agent; Z79.899 Other long term (current) drug therapy; W05.0XXA Fall from non-moving wheelchair, initial encounter; Y93.89 Activity, other specified; Y92.128 Other place in nursing home as the place of occurrence of the external cause; Y99.8 Other external cause status ==

== ENCOUNTER 2019-10-20 16:41 | Inpatient (IN) | payer MEDICARE ==
[~2019-10-20] VITALS: Ht 170.1 cm; Wt 75.7 kg
[2019-10-20 16:55] VITALS: BP 146/92
[2019-10-20 17:57] LABS: BASO % 0.3 % (0.0-1.0); EOS % 0.3 % (1.0-4.0); HEMATOCRIT 34.9 % (37.0-47.0); HEMOGLOBIN 11.7 g/dl (12.0-16.0); MEAN CELL VOLUME 103.6 fl (81.0-99.0); MEAN CORPUSCULAR HGB 34.7 pg (27.0-31.0); MEAN CORPUSCULAR HGB CONC 33.5 g/dl (33.0-37.0); MEAN PLATELET VOLUME 11.3 fl (9.6-12.3); MONO # 0.4 10*3/uL (0.1-1.0); MONO % 4.4 % (3.0-9.0); NEUT # 5.6 10*3/uL (2.3-7.9); NEUT % 69.5 % (47.0-73.0); PLATELET COUNT AUTOMATED 190 10*3/uL (130-400); RED BLOOD COUNT 3.37 10*6/uL (4.10-5.10)
[2019-10-20 18:06] LABS: ACT PARTIAL THROMBO TIME 25.9 SECONDS (20.0-32.1)
[2019-10-20 18:10] LABS: CREATININE 1.14 mg/dL (0.55-1.02); POTASSIUM 3.4 mmol/L (3.5-5.1); TOTAL PROTEIN 6.9 gm/dL (6.4-8.2)
[2019-10-20 18:41] LABS: CLARITY CLOUDY (CLEAR); COLOR YELLOW (YELLOW)
[2019-10-20 18:42] LABS: BILIRUBIN NEGATIVE (NEGATIVE); BLOOD NEGATIVE (NEGATIVE); GLUCOSE NEGATIVE (NEGATIVE); KETONE NEGATIVE (NEGATIVE); PH 6.5 (5.0-9.0)
[2019-10-20 18:43] LABS: NITRITE NEGATIVE (NEGATIVE); UROBILINOGEN 0.2 E.U./dl (0.2-1.0)
[2019-10-20 18:44] LABS: LEUKO ESTERASE 2+ (NEGATIVE)
[2019-10-20] MEDS ORDERED: POTASSIUM600 MG PO (18:46)
[2019-10-20 18:53] LABS: BACTERIA 2+; WBC 21-30 wbc/hpf (0-5)
[2019-10-20 18:54] LABS: MUCOUS 1+
[2019-10-21] VITALS: BP 146/71
[2019-10-21 06:56] LABS: BASO % 0.4 % (0.0-1.0); EOS % 0.4 % (1.0-4.0); HEMATOCRIT 32.1 % (37.0-47.0); HEMOGLOBIN 10.4 g/dl (12.0-16.0); LYMPH # 1.3 10*3/uL (1.3-4.4); MEAN CELL VOLUME 103.9 fl (81.0-99.0); MEAN CORPUSCULAR HGB 33.7 pg (27.0-31.0); MEAN CORPUSCULAR HGB CONC 32.4 g/dl (33.0-37.0); MEAN PLATELET VOLUME 11.2 fl (9.6-12.3); MONO # 0.3 10*3/uL (0.1-1.0); MONO % 5.5 % (3.0-9.0); NEUT # 3.7 10*3/uL (2.3-7.9); NEUT % 69.3 % (47.0-73.0); PLATELET COUNT AUTOMATED 167 10*3/uL (130-400); RED BLOOD COUNT 3.09 10*6/uL (4.10-5.10); RED CELL DISTRI WIDTH 21.5 % (0-14.5); WHITE BLOOD COUNT 5.3 10*3/uL (4.8-10.8)
[2019-10-21 07:24] LABS: BUN 27 mg/dl (7-24); CHLORIDE 112 mmol/L (98-107); CREATININE 1.04 mg/dL (0.55-1.02); POTASSIUM 3.1 mmol/L (3.5-5.1); SODIUM 146 mmol/L (136-145)
[2019-10-21 08:00] VITALS: BP 144/86
[2019-10-21 12:00] VITALS: BP 120/71
[2019-10-21 16:00] VITALS: BP 124/64
[2019-10-21 20:00] VITALS: BP 131/86
[2019-10-22] VITALS: BP 150/71
[2019-10-22 06:14] LABS: BASO % 0.5 % (0.0-1.0); EOS % 0.5 % (1.0-4.0); HEMATOCRIT 31.5 % (37.0-47.0); HEMOGLOBIN 10.2 g/dl (12.0-16.0); LYMPH % 31.3 % (27.0-41.0); MEAN CELL VOLUME 105.4 fl (81.0-99.0); MEAN CORPUSCULAR HGB 34.1 pg (27.0-31.0); MEAN CORPUSCULAR HGB CONC 32.4 g/dl (33.0-37.0); MEAN PLATELET VOLUME 11.1 fl (9.6-12.3); MONO # 0.4 10*3/uL (0.1-1.0); MONO % 5.5 % (3.0-9.0); NEUT # 3.9 10*3/uL (2.3-7.9); NEUT % 61.9 % (47.0-73.0); PLATELET COUNT AUTOMATED 151 10*3/uL (130-400); RED BLOOD COUNT 2.99 10*6/uL (4.10-5.10); RED CELL DISTRI WIDTH 21.8 % (0-14.5); WHITE BLOOD COUNT 6.3 10*3/uL (4.8-10.8)
[2019-10-22 06:36] LABS: ALBUMIN 2.6 gm/dl (3.1-4.5); ALKALINE PHOSPHATASE 151 U/L (45-117); BUN 25 mg/dl (7-24); CHLORIDE 111 mmol/L (98-107); CREATININE 1.03 mg/dL (0.55-1.02); POTASSIUM 3.9 mmol/L (3.5-5.1); SGOT/AST 87 IU/L (3-35); SGPT/ALT 33 U/L (12-78); SODIUM 144 mmol/L (136-145); TOTAL PROTEIN 5.7 gm/dL (6.4-8.2)
[2019-10-22 06:45] LABS: VALPROIC ACID (DEPAKENE) 22.8 ug/ml (50-100)
[2019-10-22 08:00] VITALS: BP 126/69
== END 2019-10-22 11:26 | disposition home or self-care (01) | DRG 682 ==
LOC: ED 16:41 → EDHOLD 18:04 → 5E 18:04
PROVIDERS: Nurse Practitioner Family; ADMIT Internal Medicine
DX: N17.0 Acute kidney failure with tubular necrosis (principal); E43 Unspecified severe protein-calorie malnutrition; N39.0 Urinary tract infection, site not specified; Z16.12 Extended spectrum beta lactamase (ESBL) resistance; R26.2 Difficulty in walking, not elsewhere classified; D64.9 Anemia, unspecified; E87.6 Hypokalemia; E83.51 Hypocalcemia; F03.90 Unspecified dementia, unspecified severity, without behavioral disturbance, psychotic disturbance, mood disturbance, and anxiety; I48.91 Unspecified atrial fibrillation; G40.909 Epilepsy, unspecified, not intractable, without status epilepticus; K21.9 Gastro-esophageal reflux disease without esophagitis; I10 Essential (primary) hypertension; Z96.659 Presence of unspecified artificial knee joint; Z96.649 Presence of unspecified artificial hip joint; Z82.49 Family history of ischemic heart disease and other diseases of the circulatory system; Z83.3 Family history of diabetes mellitus; Z86.74 Personal history of sudden cardiac arrest; Z98.84 Bariatric surgery status; Z79.899 Other long term (current) drug therapy; Z88.5 Allergy status to narcotic agent; Z68.35 Body mass index [BMI] 35.0-35.9, adult

== ENCOUNTER 2019-11-15 15:44 | Inpatient (IN) | payer MEDICARE ==
[~2019-11-15] VITALS: Ht 167.6 cm; Wt 73.2 kg
[~2019-11-15 15:44] MED LIST changes: +POTASSIUM600 MG PO
[2019-11-15 15:51] VITALS: BP 86/57
[2019-11-15 16:01] VITALS: BP 122/74
[2019-11-15 16:21] LABS: BASO % 0.7 % (0.0-1.0); EOS % 0.5 % (1.0-4.0); HEMATOCRIT 35.4 % (37.0-47.0); HEMOGLOBIN 11.9 g/dl (12.0-16.0); LYMPH # 2.6 10*3/uL (1.3-4.4); LYMPH % 44.6 % (27.0-41.0); MEAN CELL VOLUME 103.8 fl (81.0-99.0); MEAN CORPUSCULAR HGB 34.9 pg (27.0-31.0); MEAN CORPUSCULAR HGB CONC 33.6 g/dl (33.0-37.0); MEAN PLATELET VOLUME 11.1 fl (9.6-12.3); MONO # 0.3 10*3/uL (0.1-1.0); MONO % 4.9 % (3.0-9.0); NEUT # 2.8 10*3/uL (2.3-7.9); NEUT % 49.1 % (47.0-73.0); NUCLEATED RED BLOOD CELL 0.3 % (0.0-0.0); PLATELET COUNT AUTOMATED 186 10*3/uL (130-400); RED BLOOD COUNT 3.41 10*6/uL (4.10-5.10); RED CELL DISTRI WIDTH 19.7 % (0-14.5); WHITE BLOOD COUNT 5.8 10*3/uL (4.8-10.8)
[2019-11-15 16:35] LABS: ALBUMIN 2.9 gm/dl (3.1-4.5); CREATININE 1.37 mg/dL (0.55-1.02); POTASSIUM 3.7 mmol/L (3.5-5.1); TOTAL PROTEIN 6.6 gm/dL (6.4-8.2)
[2019-11-15 16:39] LABS: BILIRUBIN NEGATIVE (NEGATIVE); CLARITY CLOUDY (CLEAR); COLOR YELLOW (YELLOW); GLUCOSE NEGATIVE (NEGATIVE); KETONE NEGATIVE (NEGATIVE)
[2019-11-15 16:40] LABS: BLOOD NEGATIVE (NEGATIVE); LEUKO ESTERASE NEGATIVE (NEGATIVE); NITRITE POSITIVE (NEGATIVE); SPECIFIC GRAVITY 1.005 (1.005-1.030)
[2019-11-15 16:42] LABS: BACTERIA 4+; EPITHELIAL CELLS 0-2; MUCOUS TRACE; RBC 0-2 rbc/hpf (0-2)
[2019-11-15] MEDS ORDERED: ELIQUIS5 M1 PO (18:29)
[2019-11-15 20:00] VITALS: BP 152/75
[2019-11-16] VITALS: BP 134/65
[2019-11-16 06:23] LABS: BASO % 0.6 % (0.0-1.0); EOS % 0.4 % (1.0-4.0); HEMATOCRIT 31.7 % (37.0-47.0); HEMOGLOBIN 10.8 g/dl (12.0-16.0); LYMPH # 1.6 10*3/uL (1.3-4.4); LYMPH % 32.6 % (27.0-41.0); MEAN CELL VOLUME 102.6 fl (81.0-99.0); MEAN CORPUSCULAR HGB CONC 34.1 g/dl (33.0-37.0); MEAN PLATELET VOLUME 11.4 fl (9.6-12.3); MONO # 0.3 10*3/uL (0.1-1.0); MONO % 5.4 % (3.0-9.0); NEUT # 2.9 10*3/uL (2.3-7.9); NEUT % 60.6 % (47.0-73.0); PLATELET COUNT AUTOMATED 156 10*3/uL (130-400); RED BLOOD COUNT 3.09 10*6/uL (4.10-5.10); RED CELL DISTRI WIDTH 19.6 % (0-14.5); WHITE BLOOD COUNT 4.8 10*3/uL (4.8-10.8)
[2019-11-16 06:38] LABS: ACT PARTIAL THROMBO TIME 31.9 SECONDS (20.0-32.1); INTERNATIONAL NORM RATIO 1.2 (2.0-3.5)
[2019-11-16 06:45] LABS: ALBUMIN 2.7 gm/dl (3.1-4.5); BUN 18 mg/dl (7-24); CHLORIDE 110 mmol/L (98-107); CHOLESTEROL 185 mg/dL (<200); CREATININE 1.07 mg/dL (0.55-1.02); HDL CHOLESTEROL 62 mg/dl (40-60); LDL CHOLESTEROL 103 mg/dL (9-159); PHOSPHOROUS 2.5 mg/dL (2.5-4.9); POTASSIUM 3.4 mmol/L (3.5-5.1); SGOT/AST 44 IU/L (3-35); SGPT/ALT 28 U/L (12-78); SODIUM 141 mmol/L (136-145); TOTAL PROTEIN 5.8 gm/dL (6.4-8.2); TRIGLYCERIDES 102 mg/dl (<150); VLDL CHOLESTEROL 20 mg/dL (6-40)
[2019-11-16 06:51] LABS: ALKALINE PHOSPHATASE 204 U/L (45-117); FREE T4 0.15 ng/dl (0.76-1.46)
[2019-11-16 08:00] VITALS: BP 130/84
[2019-11-16 08:14] LABS: VITAMIN D, 25-HYDROXY 31.9 ng/mL (30-100)
[2019-11-16 12:00] VITALS: BP 125/79
[2019-11-16 16:00] VITALS: BP 132/92
[2019-11-16 20:00] VITALS: BP 153/79
[2019-11-17] VITALS: BP 136/65
[2019-11-17 06:04] LABS: HEP B CORE AB, IGM Negative (Negative); HEPATITIS B SURFACE AG Negative (Negative); HEPATITIS C VIRUS ANTIBODY <0.1 s/co (0.0-0.9)
[2019-11-17 07:00] LABS: ALBUMIN 2.3 gm/dl (3.1-4.5); ALKALINE PHOSPHATASE 165 U/L (45-117); BUN 15 mg/dl (7-24); CHLORIDE 115 mmol/L (98-107); CREATININE 0.99 mg/dL (0.55-1.02); POTASSIUM 2.8 mmol/L (3.5-5.1); SGOT/AST 39 IU/L (3-35); SGPT/ALT 23 U/L (12-78); SODIUM 145 mmol/L (136-145); TOTAL PROTEIN 4.9 gm/dL (6.4-8.2)
[2019-11-17 08:00] VITALS: BP 122/88
[2019-11-17 12:00] VITALS: BP 136/87
[2019-11-17 16:00] VITALS: BP 143/88
[2019-11-17 20:00] VITALS: BP 143/88
[2019-11-18] VITALS: BP 115/64
[2019-11-18 06:31] LABS: BASO % 0.6 % (0.0-1.0); EOS % 0.6 % (1.0-4.0); HEMATOCRIT 30.7 % (37.0-47.0); HEMOGLOBIN 10.3 g/dl (12.0-16.0); LYMPH # 2.3 10*3/uL (1.3-4.4); LYMPH % 47.3 % (27.0-41.0); MEAN CELL VOLUME 103.7 fl (81.0-99.0); MEAN CORPUSCULAR HGB 34.8 pg (27.0-31.0); MEAN CORPUSCULAR HGB CONC 33.6 g/dl (33.0-37.0); MEAN PLATELET VOLUME 11.3 fl (9.6-12.3); MONO # 0.3 10*3/uL (0.1-1.0); MONO % 6.5 % (3.0-9.0); NEUT # 2.2 10*3/uL (2.3-7.9); NEUT % 44.6 % (47.0-73.0); NUCLEATED RED BLOOD CELL 0.4 % (0.0-0.0); PLATELET COUNT AUTOMATED 153 10*3/uL (130-400); RED BLOOD COUNT 2.96 10*6/uL (4.10-5.10); RED CELL DISTRI WIDTH 19.7 % (0-14.5)
[2019-11-18 07:05] LABS: ALBUMIN 2.7 gm/dl (3.1-4.5); BUN 12 mg/dl (7-24); CHLORIDE 113 mmol/L (98-107); CREATININE 0.88 mg/dL (0.55-1.02); PHOSPHOROUS 1.7 mg/dL (2.5-4.9); SGOT/AST 75 IU/L (3-35); SGPT/ALT 35 U/L (12-78); SODIUM 143 mmol/L (136-145)
[2019-11-18 07:07] LABS: ALKALINE PHOSPHATASE 217 U/L (45-117); TOTAL PROTEIN 5.7 gm/dL (6.4-8.2)
[2019-11-18] MEDS ORDERED: MEROPENEM1 G1 IV (07:58)
[2019-11-18 08:00] VITALS: BP 106/82
[2019-11-18 09:03] VITALS: BP 110/62
[2019-11-18 12:00] VITALS: BP 127/62
[2019-11-18] MEDS ORDERED: Synthroid,Levo50 MCG PO (13:49)
[2019-11-18 14:56] LABS: ALBUMIN 2.7 gm/dl (3.1-4.5); BILIRUBIN, DIRECT 0.2 mg/dL (0.0-0.2); TOTAL PROTEIN 5.8 gm/dL (6.4-8.2)
[2019-11-18 16:00] VITALS: BP 135/96
[2019-11-18 20:00] VITALS: BP 129/94
[2019-11-19 06:56] LABS: BASO % 0.6 % (0.0-1.0); EOS % 0.6 % (1.0-4.0); HEMATOCRIT 32.2 % (37.0-47.0); HEMOGLOBIN 10.6 g/dl (12.0-16.0); LYMPH # 2.3 10*3/uL (1.3-4.4); LYMPH % 47.9 % (27.0-41.0); MEAN CELL VOLUME 103.9 fl (81.0-99.0); MEAN CORPUSCULAR HGB 34.2 pg (27.0-31.0); MEAN CORPUSCULAR HGB CONC 32.9 g/dl (33.0-37.0); MEAN PLATELET VOLUME 11.7 fl (9.6-12.3); MONO # 0.3 10*3/uL (0.1-1.0); MONO % 6.3 % (3.0-9.0); NEUT # 2.1 10*3/uL (2.3-7.9); NEUT % 44.4 % (47.0-73.0); PLATELET COUNT AUTOMATED 158 10*3/uL (130-400); RED CELL DISTRI WIDTH 19.9 % (0-14.5); WHITE BLOOD COUNT 4.8 10*3/uL (4.8-10.8)
[2019-11-19 07:17] LABS: ALBUMIN 2.7 gm/dl (3.1-4.5); ALKALINE PHOSPHATASE 236 U/L (45-117); BUN 10 mg/dl (7-24); CHLORIDE 113 mmol/L (98-107); CREATININE 0.96 mg/dL (0.55-1.02); PHOSPHOROUS 2.8 mg/dL (2.5-4.9); POTASSIUM 4.3 mmol/L (3.5-5.1); SGOT/AST 75 IU/L (3-35); SGPT/ALT 39 U/L (12-78); SODIUM 142 mmol/L (136-145); TOTAL PROTEIN 6.1 gm/dL (6.4-8.2)
[2019-11-19 12:00] VITALS: BP 95/57
[2019-11-19 16:00] VITALS: BP 128/84
[2019-11-19 20:00] VITALS: BP 133/74
[2019-11-20] VITALS: BP 110/89
[2019-11-20 08:00] VITALS: BP 128/64
[2019-11-20 12:00] VITALS: BP 123/70
[2019-11-20 20:00] VITALS: BP 126/90
[2019-11-21] VITALS: BP 105/81
[2019-11-21 08:00] VITALS: BP 120/92
[2019-11-21 11:17] LABS: BUN 8 mg/dl (7-24); CHLORIDE 112 mmol/L (98-107); CREATININE 1.09 mg/dL (0.55-1.02); POTASSIUM 4.4 mmol/L (3.5-5.1); SGOT/AST 106 IU/L (3-35); SGPT/ALT 58 U/L (12-78); SODIUM 142 mmol/L (136-145)
[2019-11-21 11:23] LABS: ALKALINE PHOSPHATASE 269 U/L (45-117); TOTAL PROTEIN 6.6 gm/dL (6.4-8.2)
[2019-11-21 12:00] VITALS: BP 100/62
[2019-11-21 14:50] LABS: BACTERIA TRACE; BILIRUBIN NEGATIVE (NEGATIVE); BLOOD NEGATIVE (NEGATIVE); CLARITY CLEAR (CLEAR); COLOR YELLOW (YELLOW); GLUCOSE NEGATIVE (NEGATIVE); KETONE NEGATIVE (NEGATIVE); LEUKO ESTERASE NEGATIVE (NEGATIVE); MUCOUS TRACE; NITRITE NEGATIVE (NEGATIVE); RBC 0-2 rbc/hpf (0-2); SPECIFIC GRAVITY 1.015 (1.005-1.030); UROBILINOGEN 0.2 E.U./dl (0.2-1.0)
[2019-11-21 16:00] VITALS: BP 151/84
[2019-11-21 20:00] VITALS: BP 121/69
[2019-11-22] VITALS: BP 116/63
[2019-11-22 06:37] LABS: ALBUMIN 2.3 gm/dl (3.1-4.5); BUN 8 mg/dl (7-24); CHLORIDE 112 mmol/L (98-107); CREATININE 0.91 mg/dL (0.55-1.02); POTASSIUM 4.2 mmol/L (3.5-5.1); SGOT/AST 75 IU/L (3-35); SGPT/ALT 44 U/L (12-78); SODIUM 142 mmol/L (136-145); TOTAL PROTEIN 5.3 gm/dL (6.4-8.2)
[2019-11-22 06:38] LABS: ALKALINE PHOSPHATASE 213 U/L (45-117)
[2019-11-22 08:00] VITALS: BP 116/64
[2019-11-22 12:00] VITALS: BP 121/62
[2019-11-22 16:00] VITALS: BP 130/69
== END 2019-11-22 18:03 | disposition home or self-care (01) | DRG 689 ==
LOC: ED 15:44 → EDHOLD 17:05 → 4E 17:05
PROVIDERS: Internal Medicine; Internal Medicine Nephrology; Nurse Practitioner Family; ADMIT Internal Medicine
PROC: 05HY33Z Insertion of Infusion Device into Upper Vein, Percutaneous Approach (ICD-10-PCS; principal; 2019-11-22)
PROC: B54MZZA Ultrasonography of Right Upper Extremity Veins, Guidance (ICD-10-PCS; principal; 2019-11-22)
DX: N30.00 Acute cystitis without hematuria (principal); N17.0 Acute kidney failure with tubular necrosis; L03.213 Periorbital cellulitis; E87.2 Acidosis; Z16.12 Extended spectrum beta lactamase (ESBL) resistance; R18.8 Other ascites; F02.81 Dementia in other diseases classified elsewhere, unspecified severity, with behavioral disturbance; E86.0 Dehydration; E83.41 Hypermagnesemia; D53.9 Nutritional anemia, unspecified; I10 Essential (primary) hypertension; K21.9 Gastro-esophageal reflux disease without esophagitis; G40.909 Epilepsy, unspecified, not intractable, without status epilepticus; I48.0 Paroxysmal atrial fibrillation; E87.6 Hypokalemia; K75.81 Nonalcoholic steatohepatitis (NASH); B96.20 Unspecified Escherichia coli [E. coli] as the cause of diseases classified elsewhere; K74.60 Unspecified cirrhosis of liver; F32.9 Major depressive disorder, single episode, unspecified; G30.9 Alzheimer's disease, unspecified; E83.51 Hypocalcemia; H02.843 Edema of right eye, unspecified eyelid; Z96.649 Presence of unspecified artificial hip joint; Z96.651 Presence of right artificial knee joint; Z88.5 Allergy status to narcotic agent; Z79.899 Other long term (current) drug therapy; Z79.01 Long term (current) use of anticoagulants; Z86.19 Personal history of other infectious and parasitic diseases; Z98.84 Bariatric surgery status; Z82.49 Family history of ischemic heart disease and other diseases of the circulatory system; Z86.74 Personal history of sudden cardiac arrest

== ENCOUNTER → 2020-01-12 | Outpatient (CLI) | payer MEDICARE ==
[~2020-01-12] MED LIST changes: +LEVOTHYROXINE75 MCG PO; +MEROPENEM1 G1 IV; +Synthroid,Levo50 MCG PO
--- NOTE | 2020-01-12 13:05 | NUR ---
INFORMED CONSENT SIGNED FOR LEXISCAN STRESS TEST WITH DR. GUPTA. RESTING EKG NSR WITH RARE PVC, HR 68,B[ 118/64. PULSE OX 99% AND LUNGS CLEAR BILATERALLY. COMPLETED ONE MINUTE OF LEXISCAN PROTOCOL RECEIVING LEXISCAN 0.4MG OVER [address] SEC[address] ARRHYTHMIAS OR ST CHANGES NOTED. PT HAD NO C/O. LAST RECOVERY HR 101, BP 118/84. WAITING NUCLEAR SCANNING IN STABLE CONDITION.
== END | disposition home or self-care (01) ==
LOC: CARD 00:28
DX: R94.31 Abnormal electrocardiogram [ECG] [EKG] (principal); R18.8 Other ascites

== ENCOUNTER 2020-01-23 12:55 | Inpatient (IN) | payer MEDICARE ==
[~2020-01-23] VITALS: Ht 167.6 cm; Wt 82.2 kg
[2020-01-23 12:55] VITALS: BP 137/53
[2020-01-23 14:51] LABS: BILIRUBIN NEGATIVE (NEGATIVE); BLOOD NEGATIVE (NEGATIVE); CLARITY CLOUDY (CLEAR); COLOR YELLOW (YELLOW); GLUCOSE NEGATIVE (NEGATIVE); KETONE NEGATIVE (NEGATIVE); LEUKO ESTERASE NEGATIVE (NEGATIVE); NITRITE NEGATIVE (NEGATIVE); UROBILINOGEN 0.2 E.U./dl (0.2-1.0)
[2020-01-23 14:53] LABS: BASO % 0.4 % (0.0-1.0); HEMATOCRIT 31.8 % (37.0-47.0); LYMPH # 0.8 10*3/uL (1.3-4.4); LYMPH % 10.7 % (27.0-41.0); MEAN CELL VOLUME 107.8 fl (81.0-99.0); MEAN CORPUSCULAR HGB 33.6 pg (27.0-31.0); MEAN CORPUSCULAR HGB CONC 31.1 g/dl (33.0-37.0); MEAN PLATELET VOLUME 9.8 fl (9.6-12.3); MONO # 0.6 10*3/uL (0.1-1.0); MONO % 7.5 % (3.0-9.0); NEUT # 6.3 10*3/uL (2.3-7.9); PLATELET COUNT AUTOMATED 272 10*3/uL (130-400); RED BLOOD COUNT 2.95 10*6/uL (4.10-5.10); RED CELL DISTRI WIDTH 16.4 % (0-14.5); WHITE BLOOD COUNT 7.8 10*3/uL (4.8-10.8)
[2020-01-23 14:55] LABS: BACTERIA 4+; EPITHELIAL CELLS 0-2; MUCOUS TRACE; RBC 0-2 rbc/hpf (0-2)
[2020-01-23 15:03] LABS: ACT PARTIAL THROMBO TIME 33.5 SECONDS (20.0-32.1); INTERNATIONAL NORM RATIO 1.1 (2.0-3.5)
[2020-01-23 15:10] LABS: ALBUMIN 2.1 gm/dl (3.1-4.5); ALKALINE PHOSPHATASE 120 U/L (45-117); BUN 22 mg/dl (7-24); CHLORIDE 111 mmol/L (98-107); CREATININE 1.01 mg/dL (0.55-1.02); LIPASE 11 U/L (73-393); POTASSIUM 3.9 mmol/L (3.5-5.1); SGOT/AST 21 IU/L (3-35); SGPT/ALT 6 U/L (12-78); SODIUM 142 mmol/L (136-145); TOTAL PROTEIN 6.2 gm/dL (6.4-8.2)
[2020-01-23 15:11] LABS: TROPONIN I < 0.015 ng/ml (<0.045)
[2020-01-23 15:21] LABS: VALPROIC ACID (DEPAKENE) 64.2 ug/ml (50-100)
[2020-01-23 16:00] VITALS: BP 109/57
--- NOTE | 2020-01-23 16:45 | NUR ---
PT HAS MULTIPLE AREAS OF ECCHYMOSIS AND SCABBED AREAS.
--- NOTE | 2020-01-23 17:35 | NUR ---
CCADMA 69, admitted to , under the services of RAFITA Amaro MD with a diagnosis of CHF. Chief complaint is NOT AMBULATING. Patient arrived via bed from ER. Monitor applied. Initial assessment completed. Vital signs taken and recorded. RAFITA AMARO MD notified of admission to the unit. Orders received. See assessment for past medical history, medications and allergies. Patient and/or family oriented to unit. [facility] visitation policy reviewed. Clothing/patient valuable form completed. TODD CUNNINGHAM
--- NOTE | 2020-01-23 17:59 | NUR ---
DR. ALMARAZ NOTIFIED OF CONSULT.
[2020-01-23 20:00] VITALS: BP 115/70
[2020-01-24] VITALS: BP 117/67
--- NOTE | 2020-01-24 05:58 | NUR ---
NILAY BARR [id number] Please refer to the physician's history and physical for past medical history, comorbid conditions, and allergies. Diagnosis: ACUTE HEART FAILURE UNSTEADY GAIT WEAKNESS Duane Score: 12,HIGH RISK WOUND DESCRIPTIONS: Wound Number: 1 Location of the wound: Left 3rd toe Thickness: Partial Size: 0.3cm x 0.4cm x <0.1cm Tunneling: none Undermining: none Sinus Tract: none Presence of Exudate: none Amount: None Color: Red Odor: None Periwound Skin Appearance: Normal Wound edges: approximated Pain (associated with wound): none at time of assessment How does patient state this happened? pt stated she bumped it on something Wound Number: 2 Location of the wound: right forearm Type of wound: skin tear Thickness: Partial Size: 3.4cm x 2.0cm x 0.1cm Tunneling: none Undermining: none Sinus Tract: none Presence of Exudate: none Amount: None Color: Red, yellow Odor: None Periwound Skin Appearance: Normal Wound edges: approximated Pain (associated with wound): none at time of assessment How does patient state this happened? pt stated she bump herself Wound Number: 3 Location of the wound: right wrist Type of wound: skin tear Thickness: Partial Size: 0.4cm x 0.6cm x 0.1cm Tunneling: none Undermining: none Sinus Tract: none Presence of Exudate: none Amount: None Color: Red Odor: None Periwound Skin Appearance: Normal Wound edges: approximated Pain (associated with wound): none at time of assessment How does patient state this happened? pt stated she bumped herself Wound Number: 4 Location of the wound: dorsal aspect right foot Type of wound: stage 1 Size: 0.5cm x 0.6cm x <0.1cm Tunneling: none Undermining: none Sinus Tract: none Presence of Exudate: none Amount: None Color: Red Odor: None Periwound Skin Appearance: Normal Wound edges: closed Pain (associated with wound): none at time of assessment How does patient state this happened? pt unable to state how this happened Surface the patient is resting on: Proform SKIN PREVENTION RECOMMENDATION: 1. Pressure redistribution support surface as appropriate 2. Elevate heels 3. Remove boots/TEDS every shift and reapply 4. Head of bed 30 degrees as tolerated 5. Assess nutrition and hydration 6. Manage moisture 7. Avoid the use of containment devices while in bed 8. Use absorptive products on surfaces limit layers of linens on bed 9. Turn and reposition every 1-2 hours in bed and every 1 hour in chair as tolerated 10. Weight shifts every 15 minutes while up in chair 11. Offloading with pillows or device to keep heels elevated off bed 12. Monitor skin at least every shift 13. Inspect under medical devices twice a day WOUND TREATMENT RECOMMENDATIONS: Consult podiatry for toenail care. Stage 1 guidelines: Apply sureprep to right dorsal aspect of foot and cover with optifoam gentle every 2 days and prn for soiling Skin tear guidelines: Cleanse right forearm, right wrist, right 3rd toe with nss and and apply sureprep around hydrogel to wound bed and cover with optifoam gentle every 2 days and prn for soiling. Heel raiser pro boots to bilateral feet while in bed.
[2020-01-24 06:00] LABS: BUN 23 mg/dl (7-24); CHLORIDE 112 mmol/L (98-107); CREATININE 0.92 mg/dL (0.55-1.02); SODIUM 145 mmol/L (136-145)
[2020-01-24 08:00] VITALS: BP 118/52
--- NOTE | 2020-01-24 08:01 | NUR ---
PODIATRY RESIDENT NOTIFIED OF CONSULT.
--- NOTE | 2020-01-24 08:15 | NUR ---
Occupational Therapy orders and nursing screen received. Will follow up with patient for completion of an OT evaluation. Thank you for this referral. Laurence Rivas OTR/L
--- NOTE | 2020-01-24 08:26 | NUR ---
PHYSICAL THERAPY Screen and PT eval received will follow thank you. Rosemary Seay PT
--- NOTE | 2020-01-24 08:30 | NUR ---
Trial Lawyer in to talk to patient. Patient states lives at home with her son and [id number] There are 2 steps in the home. Physician: Dr. Salomón Swanson Pharmacy: [facility] Home health services: would like REPLACED BY [facility] on discharge Patient's level of ADLs: MODERATE ASSIST Patient has working utilities: yes DME: walker, cane, wheelchair Follow-up physician's appointment after d/c: she prefers to make her own follow up appt after discharge Does patient want to access PORTAL?: no Discharge plan discussed with patient. She is extremely [place]. She lives at home with her son and [id number]. Her medications are bubble wrapped. She needs assistance with her ADLs and ambulates with either a cane or a walker or gets around in a wheelchair. Discussed short term SNF and home health care and she is agreeable. Will call to speak to her sister as CM is not sure if patient is understanding due to [place]. WILBERT GONSALEZ
--- NOTE | 2020-01-24 09:00 | NUR ---
Spoke to sister, Nichol, regarding discharge planning. She states patient lives at home with her son and she is a couple of doors up from them. She would like for her sister to return home with [facility]. She states she had therapy up until about 2 weeks ago and would like therapy to start coming out again. Will discuss with Dr. Swanson.
--- NOTE | 2020-01-24 10:36 | NUR ---
Per Dr. Mainor crabtree echo. complete echo done 01/12/2020.
--- NOTE | 2020-01-24 11:00 | NUR ---
Physical Therapy evaluation completed on fourth floor with full evaluation to follow. Recommend physical therapy per plan of care and SNF upon discharge. Thank you for this referral. Rosemary Seay PT
--- NOTE | 2020-01-24 11:40 | NUR ---
Occupational Therapy evaluation completed on 4E with full evaluation to follow. Recommend occupational therapy per plan of care and SNF upon discharge. Thank you for this referral. Laurence Rivas OTR/L
[2020-01-24 12:00] VITALS: BP 108/48
[2020-01-24 16:00] VITALS: BP 107/43
[2020-01-24 20:00] VITALS: BP 119/61
[2020-01-25] VITALS: BP 108/56
[2020-01-25 06:32] LABS: BUN 23 mg/dl (7-24); CHLORIDE 107 mmol/L (98-107); CREATININE 0.97 mg/dL (0.55-1.02); POTASSIUM 3.5 mmol/L (3.5-5.1); SODIUM 140 mmol/L (136-145)
[2020-01-25 08:00] VITALS: BP 102/50
--- NOTE | 2020-01-25 08:00 | NUR ---
PATIENT SLEEPING. VERY [place]. NO COMPLAINTS AT THIS TIME.
--- NOTE | 2020-01-25 08:50 | NUR ---
PHYSICAL THERAPY Patient seen this am 1;1 for therapy visit and was supine in bed following breakfast upon therapist arrival. Patient identified by name / and presented with continuos O2-2L via NC. OT professional nursing assistant was also present this session for observation only as patient reports no new c/o's at this time. Patient transfers supine to sit EOB with MOD A, tolerating several minutes of static EOB sit, CGA x 1 due to bouts of retrograde seated posture. Patient recorded HR 106 bpm following transfer and was able to complete several sit to stand transfers at bedside with MIN A, use of wh walker standing support. Patient tolerated < 30 seconds, static stand due to quick onset of fatigue and was able to take several fwd / bkwd steps. Patient recorded HR 104 bpm following treatment and returned to supine in bed with MOD A x 2. Patient remained in bed with call light, tray table, B heel protectors and bed alarm for safety. Will continue per POC as tolerated, total treatment time 14 minutes. Trey Mane, SOFTWARE RELIABILITY ENGINEER
--- NOTE | 2020-01-25 09:00 | NUR ---
Assistant Vice President in to see patient. She is extremely [place]. Informed CM spoke to her sister, Nichol, yesterday and she wanted the patient to return home with her son and OV services. She is agreeable. When medically stable she will be discharged to home with OV services.
--- NOTE | 2020-01-25 09:10 | NUR ---
OT NOTE Pt was seen this A.M. 1:1 for 20 minute OT session. Upon arrival pt was supine in bed. Pt identified by name and and had no complaints at this time. Pt presented to therapy with continuous 2L-O2 via NC which she remained on throughout the entire session. Pt transferred supine to sit EOB with modA X 2. Challenged pt's static sitting balance needed for increased I and enhanced safety and pt was able to maintain F- sitting balance requiring Saul to correct retrograde LOB that pt was unable to self correct or maintain. While sitting EOB pt completed grooming task consisting of washing her face and completing hair care with Saul due to retrograde posture. Pt tolerated sitting EOB for aprox 15 minutes before requesting to lay down due to fatigue. Pt transferred back into bed sit to supine with maxA X 2. There she was left with call light in hand, tray table in place, and bed alarm activated for safety. Continue with rec D/C plan to SNF. TANESHA Oliver
[2020-01-25 12:00] VITALS: BP 118/52
[2020-01-25 16:00] VITALS: BP 122/56
[2020-01-25 20:00] VITALS: BP 117/69
--- NOTE | 2020-01-25 20:00 | NUR ---
AAOX3 RESTING IN BED. 02 INTACT AT 3LPM VIA NASAL CANNULA. LUNGS CLEAR WITH NO COUGH NOTED. PT. VOICES NO C/O AT THIS TIME. BED ALARM INTACT.
--- NOTE | 2020-01-25 22:00 | NUR ---
TOOK PO MEDICATION WITHOUT DIFFICULTY; VOICES NO C/O AT THIS TIME. CALL LIGHT WITHIN REACH; BED ALARM ON.
[2020-01-26] VITALS: BP 112/51
--- NOTE | 2020-01-26 04:00 | NUR ---
RESTING IN BED WITH EYES CLOSED. 02 INTACT. BED ALARM ON; CALL LIGHT WITHIN REACH.
[2020-01-26 06:52] LABS: BASO % 0.4 % (0.0-1.0); EOS % 0.2 % (1.0-4.0); HEMATOCRIT 25.1 % (37.0-47.0); LYMPH # 1.4 10*3/uL (1.3-4.4); MEAN CELL VOLUME 105.9 fl (81.0-99.0); MEAN CORPUSCULAR HGB 33.3 pg (27.0-31.0); MEAN CORPUSCULAR HGB CONC 31.5 g/dl (33.0-37.0); MEAN PLATELET VOLUME 10.3 fl (9.6-12.3); MONO # 0.6 10*3/uL (0.1-1.0); MONO % 11.2 % (3.0-9.0); NEUT # 3.5 10*3/uL (2.3-7.9); NEUT % 62.8 % (47.0-73.0); PLATELET COUNT AUTOMATED 174 10*3/uL (130-400); RED BLOOD COUNT 2.37 10*6/uL (4.10-5.10); RED CELL DISTRI WIDTH 15.9 % (0-14.5); WHITE BLOOD COUNT 5.5 10*3/uL (4.8-10.8)
[2020-01-26 06:59] LABS: BUN 21 mg/dl (7-24); CHLORIDE 107 mmol/L (98-107); CREATININE 0.93 mg/dL (0.55-1.02); POTASSIUM 3.2 mmol/L (3.5-5.1); SODIUM 140 mmol/L (136-145)
[2020-01-26 08:00] VITALS: BP 132/73
--- NOTE | 2020-01-26 09:10 | NUR ---
PHYSICAL THERAPY Patient seen this am 1;1 for therapy visit and was resting supine in bed upon therapist arrival. Patient identified by name / and presented with continuos O2-3L via NC. OT diet assistant was also present this morning for observation only this session as patient recorded resting Sp02 98%, HR 95 bpm. Patient transfers supine to sit EOB with MAX A x 2, needing a minute or so to collect herself and demonstrated several bouts of retrograde seated posture. Patient performed several sit to stand transfers, use of wh walker standing support, MIN A x 2, tolerating < 45 seconds static stand each trial. Patient standing SpO2 95%, HR 113 bpm as patient c/o of increased SOB and unable to attempt gait ex at this time. Patient returned to supine in bed MOD A x 2 and remained with call light, tray table, B heel protectors and bed alarm for safety. Will continue per POC as tolerated, total treatment time 13 minutes. Trey Kraft, ICU SPECIALIST
--- NOTE | 2020-01-26 09:20 | NUR ---
OT NOTE Pt was seen this A.M. 1:1 for 20 minute OT session. Upon arrival pt was supine in bed. Pt identified by name and and had complaints of generalized weakness and fatigue. Pt presented to therapy with continuous 3L-O2 via NC which she remained on throughout the entire session. Pt's resting SpO2 was 98% and heart rate 95 bpm. Pt transferred supine to sit EOB with maxA X 2 for assist with both upper and lower body. While sitting EOB challenged pt's static sitting balance and pt was able to maintain P-/P+ sitting balance throughout requiring mod-maxA to correct retrograde LOB that occured. Pt was able to self maintain upright posture for aprox 10 seconds before falling back requiring mod-maxA to correct. Attempted to complete ADL task while seated EOB and pt was unable to perform this session due to P-/P+ seated balance. Pt did complete two sit to stand transfers from bed level with modA X 2 and use of w/w for UE support, however pt was only able to tolerate aprox 10 seconds before sitting due to quick onset of fatigue and feeling SOB. Pt's SpO2 reading 95% and heart rate 113. Pt was then educated on pursed lip breathing which she presented with fair carry over. Pt transferred back into bed sit to supine with maxA X 2. There she was left with call light in hand, tray table in place, and bed alarm activated for safety. Continue with rec D/ Cplan to SNF. SAIMA Oliver/Sindy
--- NOTE | 2020-01-26 10:17 | NUR ---
Dressing change to right dorsal aspect of foot per physician order. Dressings intact to right forearm, right wrist and right 3rd toe at time of assessment dressing dated for 01/26/20 as dressing not needed change at this time per physician orders. Patient tolerate dressing changes without diffcuilty. Call light within reach and bed in low position.
--- NOTE | 2020-01-26 10:50 | NUR ---
Discussed with Dr. Swanson whether the patient needs continued telemetry. New orders received to discontinue telemetry.
--- NOTE | 2020-01-26 11:18 | NUR ---
Discussed discharge planning with Dr. Swanson. Patient will need IV antibiotics on discharge. New orders received for midline.
--- NOTE | 2020-01-26 11:23 | NUR ---
Spoke to sister, Nichol, regarding IV antibiotics on discharge. Discussed whether patient would need a SNF or if someone at home would be able to administer them. She states they have done them in the past and will be able to administered the home IV antibiotics again. When medically stable she will be discharged to home with [facility] services.
[2020-01-26 12:00] VITALS: BP 138/83
--- NOTE | 2020-01-26 13:25 | NUR ---
MIDLINE STARTED IN LEFT UPPER ARM. ON FIRST ATTEMPT, 10 CMM LENGTH 20 ZACHERY CATHETER, USING STERILE TECHNIQUE AND ULTRASOUND GUIDANCE. GOOD BLOOD RETURN, PT TOLERATED WELL
[2020-01-26 16:00] VITALS: BP 136/82
[2020-01-26 20:00] VITALS: BP 118/68
--- NOTE | 2020-01-26 20:10 | NUR ---
AWAKE & ALERT RESTING IN BED WATCHING T.V. MORE ALERT & AWAKE THAN YESTERDAY EVENING. MIDLINE INTACT TO LEFT UPPER ARM. HEP LOCK ALSO INTACT TO LEFT ANTECUBITAL. PT. REQUESTING ROHIT OLMOS. VOICES NO C/O AT THIS TIME. BED ALARM INTACT; CALL LIGHT WITHIN REACH.
--- NOTE | 2020-01-26 22:00 | NUR ---
PT. CONTINOUSLY HAS 02 OUT OF HER NOSE. 02 REAPPLIED. PT. VOICES NO C/O. BED ALARM INTACT; BED IN LOW LOCKED POSITION. CALL LIGHT WITHIN REACH.
[2020-01-26 23:42] VITALS: BP 109/57
--- NOTE | 2020-01-27 04:00 | NUR ---
RESTING IN BED WITH EYES CLOSED. RESPIRATIONS EASY & UNLABORED. 02 INTACT. CALL LIGHT WITHIN REACH; BED ALARM ON.
--- NOTE | 2020-01-27 06:52 | NUR ---
Recommend follow up for wound care in outpatient setting patient refused at this time.
[2020-01-27 07:16] LABS: BASO % 0.4 % (0.0-1.0); EOS % 0.4 % (1.0-4.0); HEMATOCRIT 29.7 % (37.0-47.0); LYMPH # 1.4 10*3/uL (1.3-4.4); LYMPH % 25.6 % (27.0-41.0); MEAN CELL VOLUME 104.9 fl (81.0-99.0); MEAN CORPUSCULAR HGB 33.2 pg (27.0-31.0); MEAN CORPUSCULAR HGB CONC 31.6 g/dl (33.0-37.0); MONO # 0.6 10*3/uL (0.1-1.0); MONO % 11.8 % (3.0-9.0); NEUT # 3.4 10*3/uL (2.3-7.9); NEUT % 61.6 % (47.0-73.0); PLATELET COUNT AUTOMATED 196 10*3/uL (130-400); RED BLOOD COUNT 2.83 10*6/uL (4.10-5.10); RED CELL DISTRI WIDTH 15.9 % (0-14.5); WHITE BLOOD COUNT 5.4 10*3/uL (4.8-10.8)
[2020-01-27 07:34] LABS: BUN 20 mg/dl (7-24); CHLORIDE 106 mmol/L (98-107); CREATININE 0.98 mg/dL (0.55-1.02); IRON 30 ug/dL (50-170); POTASSIUM 3.9 mmol/L (3.5-5.1); SODIUM 141 mmol/L (136-145); TOTAL IRON BINDING CAPACITY 149 ug/dl (250-450)
[2020-01-27 08:00] VITALS: BP 126/51
--- NOTE | 2020-01-27 08:30 | NUR ---
Cook Italian Style Food in to see patient. She is extremely [place]. She will read lips. Discussed with patient her need for home IV antibiotics on discharge and she is agreeable. Informed CM spoke to her sister, Nichol, yesterday and she would take care of her IV antibiotics at home. She verbalized she understood. When medically stable she will be discharged to home with [facility] services.
--- NOTE | 2020-01-27 09:17 | NUR ---
PHYSICAL THERAPY Patient seen this am 1;1 for therapy visit and was resting supine in bed upon therapist arrival. Patient identified by name / and presented with continuous O2-3L via NC. OT surgeon assistant was also present this morning for observation only as patient reports no new c/o's at this time. Patient transfers supine to sit EOB with MAX A, requiring v/c for improve B UE support while demonstrating bouts of retrograde seated posture. Patient needed a few minutes to collect herself before attempting sit to stand transfer, MIN A x 2, demonstrating "rocking" motion to complete safe transfer. Patient ambulated towards [facility], 6'x 2, with use of wh walker, CGA x 1, however c/o of increased fatigue and returned to EOB sit. Patient was only 2 steps away from [facility], however strongly insisted on returning to her bed even though she was getting tired. Patient "plopped" down on bed and recorded SpO2 99%, HR 113 bpm. Therapist educated patient that vital signs were WFL's as well as benefits of improved active participation while progressing with all therapy goals. Patient completed sit to supine transfer, MAX A x 2 and remained in bed with call light, tray table, B heel protectors and bed alarm for safety. Will continue per POC as tolerated, total treatment time 14 minutes. Trey Kraft, RADIAL DRILL OPERATOR
--- NOTE | 2020-01-27 09:20 | NUR ---
OT NOTE Pt was seen this A.M. 1:1 for 20 minute OT session. Upon arrival pt was supine in bed. Pt identified by name and and had no complaints at this time. Pt presented to therapy with continuous 3L-O2 via NC which she remained on throughout the entire session. Pt transferred supine to sit EOB with modA X 2 and use of bed rail for UE support. While sitting EOB challenged pt's static sitting balance. Pt presented with P+/P- sitting balance requiring mod/maxA to correct retrograde posture that pt was unable to self maintain or correct. Pt completed sit to stand from bed level with modA X 2 and use of w/w for UE support. Challenged pt's static standing tolerance needed for increased I in self care tasks and functional transfers, pt was able to tolerate aprox 60 seconds at a time before sitting due to fatigue and stating she felt SOB. Pt's Spo2 reading 99% and heart rate 113. Functional mobility was then completed to the bedside commode with Saul and use of w/w. Throughout pt required max verbal prompts for encouragement and breathing techniques. Pt then returned to bed sit to supine with maxA X 2. There she was left with call light in hand, tray table in place, and bed alarm activated for safety. Continue with rec D/C plan to SNF. SAIMA Oliver/Sindy
[2020-01-27 12:00] VITALS: BP 141/65
--- NOTE | 2020-01-27 13:35 | NUR ---
PHYSICAL THERAPY CO-SIGN I approve of the Physical Therapy notes written above. Rosemary Seay PT
[2020-01-27 16:00] VITALS: BP 129/56
--- NOTE | 2020-01-27 16:53 | NUR ---
OCCUPATIONAL THERAPY CO-SIGN I approve of the Occupational Therapy notes written above. NORA LAI, OTR/L
[2020-01-27 20:00] VITALS: BP 99/72
--- NOTE | 2020-01-27 20:34 | NUR ---
MOTRIN GIVEN PER ONE TIME ORDER FOR C/O HEADACHE. SEE EMAR. REINFORCED USE OF CALL LIGHT.
--- NOTE | 2020-01-27 21:30 | NUR ---
PATIENT RESTIMG QUIETLY. NO FURTHER C/O VOICED.
[2020-01-28] VITALS: BP 128/76
[2020-01-28 08:00] VITALS: BP 117/58
[2020-01-28 12:00] VITALS: BP 135/56
--- NOTE | 2020-01-28 12:32 | NUR ---
DR GUPTA ROUNDED AND SEEN PT.
[2020-01-28 16:00] VITALS: BP 125/58
[2020-01-28 20:00] VITALS: BP 121/60
--- NOTE | 2020-01-28 20:00 | NUR ---
RESTING IN BED; AWAKE & ALERT. PT. VERY [place]. HEP LOCK INTACT TO LEFT ARM & MIDLINE INTACT TO LEFT ARM. 02 INTACT AT 3LPM VIA NASAL CANNULA; PULSE OX 100%. PT. VOICES NO C/O AT THIS TIME; CALL LIGHT WITHIN REACH.
--- NOTE | 2020-01-28 22:37 | NUR ---
DRESSINGS CHANGED TO RIGHT ARM. PT. TOLERATED WELL. TOOK MEDICATION WITHOUT DIFFICULTY; VOICES NO C/O AT THIS TIME. CALL LIGHT WITHIN REACH; BED ALARM ON.
--- NOTE | 2020-01-28 23:30 | NUR ---
RECIEVED PATIENT REPORT FROM OUTGOING NURSE, DIETER. RESUMED CARE OF THIS PATIENT.
[2020-01-29] VITALS: BP 119/75
--- NOTE | 2020-01-29 02:28 | NUR ---
24 HR chart check completed.
[2020-01-29 06:12] LABS: BASO % 0.8 % (0.0-1.0); EOS % 0.8 % (1.0-4.0); HEMATOCRIT 31.6 % (37.0-47.0); LYMPH # 1.5 10*3/uL (1.3-4.4); LYMPH % 28.2 % (27.0-41.0); MEAN CELL VOLUME 104.6 fl (81.0-99.0); MEAN CORPUSCULAR HGB 32.5 pg (27.0-31.0); MEAN PLATELET VOLUME 10.1 fl (9.6-12.3); MONO # 0.6 10*3/uL (0.1-1.0); MONO % 11.5 % (3.0-9.0); NEUT # 3.1 10*3/uL (2.3-7.9); NEUT % 58.3 % (47.0-73.0); PLATELET COUNT AUTOMATED 224 10*3/uL (130-400); RED BLOOD COUNT 3.02 10*6/uL (4.10-5.10); RED CELL DISTRI WIDTH 15.6 % (0-14.5); WHITE BLOOD COUNT 5.3 10*3/uL (4.8-10.8)
[2020-01-29 06:28] LABS: BUN 20 mg/dl (7-24); CHLORIDE 107 mmol/L (98-107); SODIUM 140 mmol/L (136-145)
[2020-01-29 08:00] VITALS: BP 124/83
--- NOTE | 2020-01-29 08:00 | NUR ---
IN TO ROOM. PATIENT AWAKE AND ALERT LAYING IN BED. PT VERY HARD OF HEARING BUT ANSWERS QUESTIONS APPROPRIATELY. NO STATED COMPLAINTS. DENIES PAIN. NO SOB NOTED AT REST ON 3L. RESPIRATIONS ARE EASY AND REGULAR. BED IN LOWEST LOCKED POSITION AND CALL LIGHT WITHIN REACH. WILL CONTINUE TO MONITOR.
--- NOTE | 2020-01-29 11:45 | NUR ---
PT RESTING WITH EYES CLOSED. CALL LIGHT WITHIN REACH. WILL MONITOR.
[2020-01-29 12:00] VITALS: BP 121/81
--- NOTE | 2020-01-29 14:08 | NUR ---
IV ANTIBIOTICS STARTED. PT AWAKE ALERT AND ORIENTED. NO STATED COMPLAINTS. DENIES ANY PAIN AND NO SOB NOTED AT TIME OF ASSESSMENT. 3L NC O2 INTACT. RESPIRATIONS ARE EASY AND REGULAR. BED IN LOWEST LOCKED POSITITION AND CALL LIGHT WITHIN REACH.
[2020-01-29 16:00] VITALS: BP 126/87
--- NOTE | 2020-01-29 17:03 | NUR ---
PT TRANSFERRED TO CHAIR. ASSISTED BY 2 PA'S AND WALKER. DRESSINGS TO RIGHT ARM CHANGED AT THIS TIME. CHAIR IN LOCKED POSITION, CALL LIGHT WITHIN REACH AND BODY ALARM ON.
[2020-01-29 20:00] VITALS: BP 126/79
[2020-01-30] VITALS: BP 131/56
[2020-01-30 08:00] VITALS: BP 120/70
--- NOTE | 2020-01-30 08:00 | NUR ---
IN TO ROOM. PATIENT AWAKE, ALERT AND ORIENTED. LAYING IN BED. NO STATED COMPLAINTS AT THIS TIME. DENIES PAIN. NO SOB NOTED ON 3L NC. RESPIRATIONS ARE EASY AND REGULAR. NO S/S OF DISTRESS NOTED. PATIENT HAD BOWEL MOVEMENT. BRIEF CHANGED AND REPOSITIONED AT THIS TIME. BED IN LOWEST LOCKED POSITION AND CALL LIGHT WITHIN REACH. WILL CONTINUE TO MONITOR.
--- NOTE | 2020-01-30 08:25 | NUR ---
PHYSICAL THERAPY Patient seen this am 1;1 for therapy visit and was resting supine in bed upon therapist arrival. Patient identified by name / and was very pleasant / alert this morning with continuos O2-3L via NC. OT curriculum assistant was also present for observation only this session as patient transfers supine to sit EOB with MOD A x 2. Patient completed sit to stand transfer with use of walker standing support, MIN A, requiring v/c for proper hand placemnt. Patient ambulated 15'x 1, CGA, wh walker, demonstrating very slow, cautious gait pattern, requiring v/c for improved walker safety navigation, especially during all 90 / 180 turns. Patient reutrned to bedside chair with mild fatigue as SpO2 / HR remained WFL's throughout all treatment. Following brief seated rest break, patient performed seated B LE therex, all planes, x 10 reps each to increase LE strength, AROM, however demonstrated increased difficulty reaching full ROM during LAQ. Patient remained in chair with B heel protectors, call light, tray table and body alarm for safety. Will continue per POC as tolerated, total treatment time 23 mintes. Trey Kraft, ENTRY LEVEL ACCOUNT MANAGER
--- NOTE | 2020-01-30 08:50 | NUR ---
OT NOTE Pt was seen this A.M. 1:1 for 25 minute OT session. Upon arrival pt was supine in bed. Pt identified by name and and had no complaints at this time. Pt presented to therapy with continuous 3L-O2 via NC which she remained on throughout the entire session. Pt transferred supine to sit EOB with modA X 2. While sitting EOB challenged pt's static sitting balance needed for increased I and enhanced safety, pt was able to maintain F- sitting balance this session. Sit to stand then completed from bed level with Saul and use of w/w for UE support. Functional mobility completed from the EOB to the bedside commode then to the recliner with Saul for walker navigation and verbal prompts for breathing techniques. Once seated in the recliner pt completed UB grooming task consisting of washing her UB and completing hair care with supervision after set up. Pt was left sitting upright in the recliner with call light in hand, tray table in place, and body alarm activated for safety. Continue with rec D/C plan to SNF. TANESHA Oliver
--- NOTE | 2020-01-30 11:04 | NUR ---
Faxed home health referral to [facility]. Faxed to check cost of Merrem to [facility]. Awaiting prescription for Merrem. Discussed with Dr. Noland and Dr. Swanson.
[2020-01-30 12:00] VITALS: BP 121/76
--- NOTE | 2020-01-30 12:20 | NUR ---
Spoke to Sofi at [facility]. They are going to add the patient to tomorrow's list in the am.
--- NOTE | 2020-01-30 12:45 | NUR ---
Received call from aSndhya, [facility] Business Information Analyst, regarding discharge plan. Explained discharge plan is to go home and that her son and [id number] are living with her and that her sister, Nichol, checks in on her every day. Sandhya is going to reach out to Nichol about waiver services at home. Explained to Sandhya patient is going to discharge to home with home health care and IV antibiotics.
--- NOTE | 2020-01-30 13:30 | NUR ---
Faxed prescriptions to [facility]. 1. ertapenem 1 gm IV daily x 10 doses or 2. Merrem 1 gm IV q8h x 10 doses. Awaiting response.
--- NOTE | 2020-01-30 13:40 | NUR ---
Spoke to Sue at [facility] regarding home IV antibiotics. The midline is good for the ertapenem but [facility] prefers a PICC line for the Merrem. [facility] will send the ertapenem to patient's home. No cost to the patient. Spoke to Sofi at [facility] regarding the IV antibiotic will be ertapenem. [facility] will see the patient tomorrow for start of care.
[2020-01-30] MEDS ORDERED: Synthroid,Lev100 MCG PO (13:48)
[2020-01-30] MEDS ORDERED: ERTAPENEM1 GM IV (13:48)
[2020-01-30] MEDS ORDERED: POTASSIUM CHLO20 ME3 PO (13:48)
[2020-01-30] MEDS ORDERED: LASIX20 MG PO (13:48)
[2020-01-30 16:00] VITALS: BP 118/72
--- NOTE | 2020-01-30 17:27 | NUR ---
Discharge instructions reviewed with patient/family. Patient receptive and verbalizes understanding. Follow-up care arranged. Written instructions given to patient/family. EDWIN CONKLIN
--- NOTE | 2020-01-31 07:23 | NUR ---
PHYSICAL THERAPY CO-SIGN I approve of the Physical Therapy notes written above. Rosemary Seay PT
--- NOTE | 2020-01-31 07:42 | NUR ---
OCCUPATIONAL THERAPY CO-SIGN I approve of the Occupational Therapy notes written above. NORA LAI, OTR/L
== END 2020-01-30 18:46 | disposition home or self-care (01) | DRG 291 ==
LOC: ED 12:55 → 4E 16:17 → EDHOLD 16:17 → 4E 16:54
PROVIDERS: Emergency Medicine; Internal Medicine Nephrology; ADMIT Internal Medicine
PROC: 0HBRXZZ Excision of Toe Nail, External Approach (ICD-10-PCS; principal; 2020-01-24)
DX: I11.0 Hypertensive heart disease with heart failure (principal); E43 Unspecified severe protein-calorie malnutrition; G93.41 Metabolic encephalopathy; N39.0 Urinary tract infection, site not specified; Z16.12 Extended spectrum beta lactamase (ESBL) resistance; K92.2 Gastrointestinal hemorrhage, unspecified; I50.9 Heart failure, unspecified; R53.1 Weakness; R26.81 Unsteadiness on feet; K21.9 Gastro-esophageal reflux disease without esophagitis; Z96.649 Presence of unspecified artificial hip joint; K74.60 Unspecified cirrhosis of liver; B96.29 Other Escherichia coli [E. coli] as the cause of diseases classified elsewhere; E87.6 Hypokalemia; D64.9 Anemia, unspecified; E03.9 Hypothyroidism, unspecified; E55.9 Vitamin D deficiency, unspecified; G30.9 Alzheimer's disease, unspecified; B35.1 Tinea unguium; G40.909 Epilepsy, unspecified, not intractable, without status epilepticus; I48.91 Unspecified atrial fibrillation; F02.80 Dementia in other diseases classified elsewhere, unspecified severity, without behavioral disturbance, psychotic disturbance, mood disturbance, and anxiety; Z96.659 Presence of unspecified artificial knee joint; Z98.84 Bariatric surgery status; Z86.74 Personal history of sudden cardiac arrest; Z87.440 Personal history of urinary (tract) infections; Z82.49 Family history of ischemic heart disease and other diseases of the circulatory system; Z83.3 Family history of diabetes mellitus; Z88.5 Allergy status to narcotic agent; Z79.899 Other long term (current) drug therapy; Z79.01 Long term (current) use of anticoagulants; Z68.31 Body mass index [BMI] 31.0-31.9, adult

== ENCOUNTER 2020-03-12 15:26 | Inpatient (IN) | payer MEDICARE ==
[~2020-03-12] VITALS: Ht 165.1 cm; Wt 75.1 kg
[~2020-03-12 15:26] MED LIST changes: +ERTAPENEM1 GM IV; +LASIX20 MG PO; +POTASSIUM CHLO20 ME3 PO; +Synthroid,Lev100 MCG PO
[2020-03-12 15:29] VITALS: BP 143/74
[2020-03-12 16:30] VITALS: BP 144/71
[2020-03-12 17:03] LABS: BASO % 0.3 % (0.0-1.0); EOS % 0.6 % (1.0-4.0); HEMATOCRIT 26.2 % (37.0-47.0); LYMPH # 1.6 10*3/uL (1.3-4.4); LYMPH % 23.8 % (27.0-41.0); MEAN CELL VOLUME 100.4 fl (81.0-99.0); MEAN CORPUSCULAR HGB CONC 30.9 g/dl (33.0-37.0); MEAN PLATELET VOLUME 9.3 fl (9.6-12.3); MONO # 0.6 10*3/uL (0.1-1.0); MONO % 9.2 % (3.0-9.0); NEUT # 4.5 10*3/uL (2.3-7.9); NEUT % 65.7 % (47.0-73.0); PLATELET COUNT AUTOMATED 390 10*3/uL (130-400); RED BLOOD COUNT 2.61 10*6/uL (4.10-5.10); RED CELL DISTRI WIDTH 18.4 % (0-14.5); WHITE BLOOD COUNT 6.9 10*3/uL (4.8-10.8)
[2020-03-12 17:14] LABS: ACT PARTIAL THROMBO TIME 35.6 SECONDS (20.0-32.1); ALBUMIN 1.9 gm/dl (3.1-4.5); ALKALINE PHOSPHATASE 135 U/L (45-117); BUN 17 mg/dl (7-24); CHLORIDE 111 mmol/L (98-107); CREATININE 0.85 mg/dL (0.55-1.02); INTERNATIONAL NORM RATIO 1.2 (2.0-3.5); POTASSIUM 3.2 mmol/L (3.5-5.1); SGOT/AST 19 IU/L (3-35); SGPT/ALT 12 U/L (12-78); SODIUM 144 mmol/L (136-145)
[2020-03-12 17:19] LABS: TROPONIN I < 0.015 ng/ml (<0.045)
[2020-03-12 17:30] VITALS: BP 147/70
[2020-03-12 18:30] VITALS: BP 140/67
[2020-03-12 19:23] VITALS: BP 140/69
[2020-03-12 20:04] VITALS: BP 142/69
[2020-03-13] VITALS: BP 150/64
[2020-03-13 06:42] LABS: BASO % 0.3 % (0.0-1.0); EOS # 0.1 10*3/uL (0.0-0.4); EOS % 0.7 % (1.0-4.0); HEMATOCRIT 27.4 % (37.0-47.0); LYMPH # 1.7 10*3/uL (1.3-4.4); LYMPH % 23.8 % (27.0-41.0); MEAN CORPUSCULAR HGB 30.7 pg (27.0-31.0); MEAN CORPUSCULAR HGB CONC 30.7 g/dl (33.0-37.0); MEAN PLATELET VOLUME 9.7 fl (9.6-12.3); MONO # 0.7 10*3/uL (0.1-1.0); MONO % 10.1 % (3.0-9.0); NEUT # 4.6 10*3/uL (2.3-7.9); NEUT % 64.5 % (47.0-73.0); PLATELET COUNT AUTOMATED 392 10*3/uL (130-400); RED BLOOD COUNT 2.74 10*6/uL (4.10-5.10); RED CELL DISTRI WIDTH 18.5 % (0-14.5); WHITE BLOOD COUNT 7.1 10*3/uL (4.8-10.8)
[2020-03-13 07:27] LABS: CHLORIDE 111 mmol/L (98-107); POTASSIUM 3.6 mmol/L (3.5-5.1); SODIUM 144 mmol/L (136-145)
[2020-03-13 07:34] LABS: ALKALINE PHOSPHATASE 136 U/L (45-117); BUN 17 mg/dl (7-24); CREATININE 0.79 mg/dL (0.55-1.02); SGOT/AST 20 IU/L (3-35); SGPT/ALT 10 U/L (12-78); TOTAL PROTEIN 6.1 gm/dL (6.4-8.2)
[2020-03-13 12:00] VITALS: BP 134/58
[2020-03-13 15:11] LABS: BILIRUBIN 1+ (NEGATIVE); BLOOD 2+ (NEGATIVE); CLARITY SL CLOUDY (CLEAR); COLOR YELLOW (YELLOW); GLUCOSE NEGATIVE (NEGATIVE); KETONE NEGATIVE (NEGATIVE); LEUKO ESTERASE 2+ (NEGATIVE); NITRITE POSITIVE (NEGATIVE); UROBILINOGEN 0.2 E.U./dl (0.2-1.0)
[2020-03-13 15:12] LABS: BACTERIA 4+; MUCOUS 2+; WBC TNTC wbc/hpf (0-5)
[2020-03-13 16:00] VITALS: BP 132/81
[2020-03-13 20:00] VITALS: BP 141/70
[2020-03-14] VITALS: BP 144/75
[2020-03-14 06:46] LABS: BASO % 0.3 % (0.0-1.0); EOS % 0.2 % (1.0-4.0); HEMATOCRIT 27.3 % (37.0-47.0); LYMPH # 1.3 10*3/uL (1.3-4.4); LYMPH % 11.9 % (27.0-41.0); MEAN CELL VOLUME 99.6 fl (81.0-99.0); MEAN CORPUSCULAR HGB CONC 31.1 g/dl (33.0-37.0); MEAN PLATELET VOLUME 9.6 fl (9.6-12.3); MONO # 0.9 10*3/uL (0.1-1.0); MONO % 8.3 % (3.0-9.0); NEUT # 8.7 10*3/uL (2.3-7.9); PLATELET COUNT AUTOMATED 431 10*3/uL (130-400); RED BLOOD COUNT 2.74 10*6/uL (4.10-5.10); RED CELL DISTRI WIDTH 18.9 % (0-14.5)
[2020-03-14 06:50] LABS: ALBUMIN 1.9 gm/dl (3.1-4.5); BUN 14 mg/dl (7-24); CHLORIDE 111 mmol/L (98-107); CREATININE 0.64 mg/dL (0.55-1.02); POTASSIUM 3.4 mmol/L (3.5-5.1); SGOT/AST 17 IU/L (3-35); SGPT/ALT 10 U/L (12-78); SODIUM 144 mmol/L (136-145)
[2020-03-14 07:00] LABS: ALKALINE PHOSPHATASE 121 U/L (45-117); VALPROIC ACID (DEPAKENE) 32.5 ug/ml (50-100)
[2020-03-14 12:00] VITALS: BP 94/81
[2020-03-14 16:00] VITALS: BP 145/64
[2020-03-14 20:00] VITALS: BP 139/75
[2020-03-15] VITALS: BP 116/64
[2020-03-15 12:00] VITALS: BP 118/70
[2020-03-15 16:00] VITALS: BP 138/72
[2020-03-15 20:00] VITALS: BP 141/68
[2020-03-16] VITALS: BP 128/74
[2020-03-16 06:44] LABS: BASO % 0.3 % (0.0-1.0); EOS % 0.3 % (1.0-4.0); HEMATOCRIT 24.2 % (37.0-47.0); LYMPH # 1.5 10*3/uL (1.3-4.4); LYMPH % 19.4 % (27.0-41.0); MEAN CELL VOLUME 102.5 fl (81.0-99.0); MEAN CORPUSCULAR HGB 31.8 pg (27.0-31.0); MEAN PLATELET VOLUME 10.1 fl (9.6-12.3); MONO # 0.8 10*3/uL (0.1-1.0); MONO % 10.1 % (3.0-9.0); NEUT # 5.5 10*3/uL (2.3-7.9); NEUT % 69.5 % (47.0-73.0); PLATELET COUNT AUTOMATED 320 10*3/uL (130-400); RED BLOOD COUNT 2.36 10*6/uL (4.10-5.10); RED CELL DISTRI WIDTH 19.8 % (0-14.5); WHITE BLOOD COUNT 7.9 10*3/uL (4.8-10.8)
[2020-03-16 06:54] LABS: BUN 11 mg/dl (7-24); CHLORIDE 110 mmol/L (98-107); CREATININE 0.69 mg/dL (0.55-1.02); POTASSIUM 3.5 mmol/L (3.5-5.1); SODIUM 145 mmol/L (136-145)
[2020-03-16 12:00] VITALS: BP 136/81
[2020-03-16 14:32] LABS: IRON 26 ug/dL (50-170); TOTAL IRON BINDING CAPACITY 141 ug/dl (250-450)
[2020-03-16 14:45] LABS: INTERNATIONAL NORM RATIO 1.1 (2.0-3.5)
[2020-03-16 16:00] VITALS: BP 124/73
[2020-03-16 20:00] VITALS: BP 124/79
[2020-03-17] VITALS: BP 140/68
[2020-03-17 06:12] LABS: BASO % 0.3 % (0.0-1.0); EOS % 0.1 % (1.0-4.0); HEMATOCRIT 24.7 % (37.0-47.0); LYMPH # 1.3 10*3/uL (1.3-4.4); LYMPH % 18.5 % (27.0-41.0); MEAN CELL VOLUME 101.6 fl (81.0-99.0); MEAN CORPUSCULAR HGB 30.9 pg (27.0-31.0); MEAN CORPUSCULAR HGB CONC 30.4 g/dl (33.0-37.0); MEAN PLATELET VOLUME 10.1 fl (9.6-12.3); MONO # 0.6 10*3/uL (0.1-1.0); MONO % 9.4 % (3.0-9.0); NEUT # 4.9 10*3/uL (2.3-7.9); NEUT % 71.3 % (47.0-73.0); PLATELET COUNT AUTOMATED 301 10*3/uL (130-400); RED BLOOD COUNT 2.43 10*6/uL (4.10-5.10); RED CELL DISTRI WIDTH 19.1 % (0-14.5); WHITE BLOOD COUNT 6.8 10*3/uL (4.8-10.8)
[2020-03-17 06:27] LABS: ALBUMIN 1.9 gm/dl (3.1-4.5); BUN 12 mg/dl (7-24); CHLORIDE 110 mmol/L (98-107); POTASSIUM 3.6 mmol/L (3.5-5.1); SODIUM 145 mmol/L (136-145)
[2020-03-17 06:39] LABS: ALKALINE PHOSPHATASE 108 U/L (45-117); CREATININE 0.63 mg/dL (0.55-1.02); SGOT/AST 19 IU/L (3-35); SGPT/ALT 9 U/L (12-78); TOTAL PROTEIN 5.7 gm/dL (6.4-8.2)
[2020-03-17 08:00] VITALS: BP 132/68
[2020-03-17 12:00] VITALS: BP 149/88
[2020-03-17 16:00] VITALS: BP 138/73
[2020-03-17 20:00] VITALS: BP 152/88
[2020-03-18] VITALS (13 sets, daily range): BP systolic 103–160; BP diastolic 57–87
[2020-03-18 06:29] LABS: HEMATOCRIT 21.6 % (37.0-47.0); MEAN CELL VOLUME 102.9 fl (81.0-99.0); MEAN CORPUSCULAR HGB 31.4 pg (27.0-31.0); MEAN CORPUSCULAR HGB CONC 30.6 g/dl (33.0-37.0); MEAN PLATELET VOLUME 10.6 fl (9.6-12.3); PLATELET COUNT AUTOMATED 262 10*3/uL (130-400); RED CELL DISTRI WIDTH 19.1 % (0-14.5); WHITE BLOOD COUNT 4.5 10*3/uL (4.8-10.8)
[2020-03-18 06:42] LABS: BUN 12 mg/dl (7-24); CHLORIDE 111 mmol/L (98-107); CREATININE 0.64 mg/dL (0.55-1.02); POTASSIUM 3.7 mmol/L (3.5-5.1); SODIUM 145 mmol/L (136-145)
[2020-03-18 07:24] LABS: BASOPHILS 1 % (0-1); TOTAL CELLS COUNTED 100 #CELLS
[2020-03-18 07:25] LABS: BURR CELLS FEW; PLATELET SUFFICIENCY NORMAL (NORMAL); SCHISTOCYTES FEW; TARGET CELLS FEW
[2020-03-19] VITALS: BP 161/62
[2020-03-19 06:55] LABS: BASO % 0.4 % (0.0-1.0); EOS % 0.2 % (1.0-4.0); HEMATOCRIT 35.1 % (37.0-47.0); LYMPH # 1.2 10*3/uL (1.3-4.4); LYMPH % 23.4 % (27.0-41.0); MEAN CORPUSCULAR HGB 30.6 pg (27.0-31.0); MEAN CORPUSCULAR HGB CONC 31.3 g/dl (33.0-37.0); MEAN PLATELET VOLUME 10.6 fl (9.6-12.3); MONO # 0.6 10*3/uL (0.1-1.0); MONO % 12.3 % (3.0-9.0); NEUT # 3.3 10*3/uL (2.3-7.9); NEUT % 63.3 % (47.0-73.0); PLATELET COUNT AUTOMATED 290 10*3/uL (130-400); WHITE BLOOD COUNT 5.1 10*3/uL (4.8-10.8)
[2020-03-19 06:58] LABS: BUN 10 mg/dl (7-24); CHLORIDE 108 mmol/L (98-107); CREATININE 0.74 mg/dL (0.55-1.02); POTASSIUM 3.8 mmol/L (3.5-5.1); SODIUM 141 mmol/L (136-145)
[2020-03-19 07:05] LABS: MEAN CELL VOLUME 97.5 fl (81.0-99.0)
[2020-03-19 08:00] VITALS: BP 149/68
[2020-03-19 12:00] VITALS: BP 177/77
[2020-03-19 16:00] VITALS: BP 142/66
[2020-03-19 20:00] VITALS: BP 149/79
[2020-03-20] VITALS: BP 142/80
[2020-03-20 05:45] LABS: BASO % 0.4 % (0.0-1.0); EOS % 0.4 % (1.0-4.0); HEMATOCRIT 32.6 % (37.0-47.0); LYMPH # 1.4 10*3/uL (1.3-4.4); LYMPH % 29.3 % (27.0-41.0); MEAN CELL VOLUME 97.6 fl (81.0-99.0); MEAN CORPUSCULAR HGB 30.8 pg (27.0-31.0); MEAN CORPUSCULAR HGB CONC 31.6 g/dl (33.0-37.0); MONO # 0.8 10*3/uL (0.1-1.0); MONO % 16.3 % (3.0-9.0); NEUT # 2.5 10*3/uL (2.3-7.9); NEUT % 53.4 % (47.0-73.0); PLATELET COUNT AUTOMATED 265 10*3/uL (130-400); RED BLOOD COUNT 3.34 10*6/uL (4.10-5.10); RED CELL DISTRI WIDTH 18.6 % (0-14.5); WHITE BLOOD COUNT 4.6 10*3/uL (4.8-10.8)
[2020-03-20 05:52] LABS: ALBUMIN 2.2 gm/dl (3.1-4.5); BUN 13 mg/dl (7-24); CHLORIDE 105 mmol/L (98-107); CREATININE 0.73 mg/dL (0.55-1.02); POTASSIUM 3.8 mmol/L (3.5-5.1); SGOT/AST 24 IU/L (3-35); SGPT/ALT 10 U/L (12-78); SODIUM 142 mmol/L (136-145)
[2020-03-20 05:55] LABS: ALKALINE PHOSPHATASE 135 U/L (45-117)
[2020-03-20 08:00] VITALS: BP 136/84
[2020-03-20 12:00] VITALS: BP 150/96
[2020-03-20 12:30] VITALS: BP 146/86
[2020-03-20 16:00] VITALS: BP 149/81
[2020-03-20 20:00] VITALS: BP 137/77
[2020-03-21] VITALS: BP 136/64
[2020-03-21 06:30] LABS: BASO % 0.6 % (0.0-1.0); EOS % 0.4 % (1.0-4.0); HEMATOCRIT 31.9 % (37.0-47.0); LYMPH # 1.4 10*3/uL (1.3-4.4); LYMPH % 27.6 % (27.0-41.0); MEAN CELL VOLUME 99.1 fl (81.0-99.0); MEAN CORPUSCULAR HGB 31.1 pg (27.0-31.0); MEAN CORPUSCULAR HGB CONC 31.3 g/dl (33.0-37.0); MEAN PLATELET VOLUME 10.3 fl (9.6-12.3); MONO # 0.8 10*3/uL (0.1-1.0); MONO % 15.4 % (3.0-9.0); NEUT # 2.9 10*3/uL (2.3-7.9); NEUT % 55.6 % (47.0-73.0); PLATELET COUNT AUTOMATED 245 10*3/uL (130-400); RED BLOOD COUNT 3.22 10*6/uL (4.10-5.10); RED CELL DISTRI WIDTH 18.1 % (0-14.5); WHITE BLOOD COUNT 5.2 10*3/uL (4.8-10.8)
[2020-03-21 06:32] LABS: ALBUMIN 2.2 gm/dl (3.1-4.5); ALKALINE PHOSPHATASE 145 U/L (45-117); BUN 13 mg/dl (7-24); CHLORIDE 105 mmol/L (98-107); CREATININE 0.77 mg/dL (0.55-1.02); POTASSIUM 3.3 mmol/L (3.5-5.1); SGOT/AST 22 IU/L (3-35); SGPT/ALT 11 U/L (12-78); SODIUM 142 mmol/L (136-145); TOTAL PROTEIN 6.3 gm/dL (6.4-8.2)
[2020-03-21 06:41] LABS: INTERNATIONAL NORM RATIO 1.1 (2.0-3.5)
[2020-03-21 08:40] LABS: BILIRUBIN NEGATIVE (NEGATIVE); BLOOD NEGATIVE (NEGATIVE); CLARITY CLEAR (CLEAR); COLOR STRAW (YELLOW); GLUCOSE NEGATIVE (NEGATIVE); KETONE NEGATIVE (NEGATIVE); LEUKO ESTERASE NEGATIVE (NEGATIVE); NITRITE NEGATIVE (NEGATIVE); UROBILINOGEN 0.2 E.U./dl (0.2-1.0)
[2020-03-21 08:41] LABS: BACTERIA 3+; MUCOUS 1+; WBC 0-2 wbc/hpf (0-5)
[2020-03-21 12:00] VITALS: BP 149/78
[2020-03-21 14:42] LABS: BODY FLUID WBC 48 /uL
[2020-03-21 15:32] LABS: BF LYMPHOCYTES 52 %; BF MACROPHAGES 32 %; BF MONOCYTES 2 %; BF NEUTROPHILS 14 %
[2020-03-21 16:00] VITALS: BP 132/54
[2020-03-21 20:00] VITALS: BP 145/84
[2020-03-22] VITALS (9 sets, daily range): BP systolic 110–144; BP diastolic 44–104
[2020-03-22 06:36] LABS: BASO % 0.6 % (0.0-1.0); EOS % 0.2 % (1.0-4.0); HEMATOCRIT 34.2 % (37.0-47.0); LYMPH # 1.5 10*3/uL (1.3-4.4); LYMPH % 28.6 % (27.0-41.0); MEAN CORPUSCULAR HGB 30.9 pg (27.0-31.0); MEAN CORPUSCULAR HGB CONC 31.6 g/dl (33.0-37.0); MEAN PLATELET VOLUME 10.5 fl (9.6-12.3); MONO # 0.8 10*3/uL (0.1-1.0); MONO % 16.1 % (3.0-9.0); NEUT # 2.8 10*3/uL (2.3-7.9); NEUT % 54.1 % (47.0-73.0); PLATELET COUNT AUTOMATED 243 10*3/uL (130-400); RED BLOOD COUNT 3.49 10*6/uL (4.10-5.10); RED CELL DISTRI WIDTH 17.3 % (0-14.5); WHITE BLOOD COUNT 5.1 10*3/uL (4.8-10.8)
[2020-03-22 06:54] LABS: ALBUMIN 2.2 gm/dl (3.1-4.5); ALKALINE PHOSPHATASE 171 U/L (45-117); BUN 13 mg/dl (7-24); CHLORIDE 102 mmol/L (98-107); CREATININE 0.85 mg/dL (0.55-1.02); POTASSIUM 3.5 mmol/L (3.5-5.1); SGOT/AST 28 IU/L (3-35); SGPT/ALT 12 U/L (12-78); SODIUM 140 mmol/L (136-145); TOTAL PROTEIN 6.3 gm/dL (6.4-8.2)
[2020-03-23] VITALS: BP 142/70
[2020-03-23 06:24] LABS: BASO % 0.6 % (0.0-1.0); EOS % 0.2 % (1.0-4.0); HEMATOCRIT 31.3 % (37.0-47.0); LYMPH # 1.5 10*3/uL (1.3-4.4); LYMPH % 30.4 % (27.0-41.0); MEAN CORPUSCULAR HGB 31.3 pg (27.0-31.0); MEAN CORPUSCULAR HGB CONC 31.3 g/dl (33.0-37.0); MEAN PLATELET VOLUME 10.3 fl (9.6-12.3); MONO # 0.9 10*3/uL (0.1-1.0); MONO % 18.7 % (3.0-9.0); NEUT # 2.5 10*3/uL (2.3-7.9); NEUT % 49.7 % (47.0-73.0); PLATELET COUNT AUTOMATED 196 10*3/uL (130-400); RED BLOOD COUNT 3.13 10*6/uL (4.10-5.10); RED CELL DISTRI WIDTH 17.3 % (0-14.5)
[2020-03-23 08:00] VITALS: BP 118/68
[2020-03-23 12:00] VITALS: BP 140/68
[2020-03-23] MEDS ORDERED: Synthroid,Lev150 MCG PO (15:15)
[2020-03-23] MEDS ORDERED: Carafate1 GM PO (15:15)
[2020-03-23] MEDS ORDERED: LASIX40 MG PO (15:15)
[2020-03-23] MEDS ORDERED: KLOR-CON M2020 ME1 PO (15:15)
[2020-03-23 16:00] VITALS: BP 130/66
== END 2020-03-23 18:39 | disposition home or self-care (01) | DRG 291 ==
LOC: ED 15:26 → EDHOLD 18:07 → 4E 18:07
PROVIDERS: Family Medicine; Internal Medicine; Internal Medicine Nephrology; ADMIT Internal Medicine
PROC: 30233N1 Transfusion of Nonautologous Red Blood Cells into Peripheral Vein, Percutaneous Approach (ICD-10-PCS; principal; 2020-03-18)
PROC: 0W9G3ZZ Drainage of Peritoneal Cavity, Percutaneous Approach (ICD-10-PCS; 2020-03-21)
PROC: 0DJ08ZZ Inspection of Upper Intestinal Tract, Via Natural or Artificial Opening Endoscopic (ICD-10-PCS; 2020-03-22)
DX: I11.0 Hypertensive heart disease with heart failure (principal); E43 Unspecified severe protein-calorie malnutrition; R18.8 Other ascites; K76.6 Portal hypertension; R26.81 Unsteadiness on feet; E87.6 Hypokalemia; K21.9 Gastro-esophageal reflux disease without esophagitis; F03.90 Unspecified dementia, unspecified severity, without behavioral disturbance, psychotic disturbance, mood disturbance, and anxiety; E55.9 Vitamin D deficiency, unspecified; E03.9 Hypothyroidism, unspecified; G40.909 Epilepsy, unspecified, not intractable, without status epilepticus; D53.9 Nutritional anemia, unspecified; I48.91 Unspecified atrial fibrillation; E87.8 Other disorders of electrolyte and fluid balance, not elsewhere classified; Z96.659 Presence of unspecified artificial knee joint; Z96.649 Presence of unspecified artificial hip joint; R00.1 Bradycardia, unspecified; F10.20 Alcohol dependence, uncomplicated; D72.819 Decreased white blood cell count, unspecified; D50.9 Iron deficiency anemia, unspecified; N30.91 Cystitis, unspecified with hematuria; L97.519 Non-pressure chronic ulcer of other part of right foot with unspecified severity; B96.20 Unspecified Escherichia coli [E. coli] as the cause of diseases classified elsewhere; R74.8 Abnormal levels of other serum enzymes; K74.60 Unspecified cirrhosis of liver; K29.50 Unspecified chronic gastritis without bleeding; I50.33 Acute on chronic diastolic (congestive) heart failure; Z88.5 Allergy status to narcotic agent; Z98.84 Bariatric surgery status; Z87.891 Personal history of nicotine dependence; Z82.49 Family history of ischemic heart disease and other diseases of the circulatory system; Z83.3 Family history of diabetes mellitus; Z82.3 Family history of stroke; Z86.74 Personal history of sudden cardiac arrest; Z79.899 Other long term (current) drug therapy; Z68.33 Body mass index [BMI] 33.0-33.9, adult

== ENCOUNTER 2020-05-06 19:52 | Inpatient (IN) | payer MEDICARE ==
[~2020-05-06] VITALS: Ht 165.1 cm; Wt 75.9 kg
[~2020-05-06 19:52] MED LIST changes: +Carafate1 GM PO; +KLOR-CON M2020 ME1 PO; +LASIX40 MG PO; +Synthroid,Lev150 MCG PO
[2020-05-06 19:53] VITALS: BP 134/76
[2020-05-06 20:31] LABS: BILIRUBIN NEGATIVE; BLOOD TRACE-INTACT (NEGATIVE); CLARITY TURBID (CLEAR); COLOR YELLOW (YELLOW); GLUCOSE NEGATIVE; KETONE NEGATIVE; LEUKO ESTERASE 3+ (NEGATIVE); NITRITE POSITIVE (NEGATIVE); SPECIFIC GRAVITY 1.015 (1.001-1.030)
[2020-05-06 20:36] LABS: BACTERIA 4+; EPITHELIAL CELLS 0-2; WBC TNTC wbc/hpf (0-5)
[2020-05-06 20:37] LABS: MUCOUS TRACE
[2020-05-06 21:06] LABS: BASO % 0.3 % (0.0-1.0); EOS % 0.2 % (1.0-4.0); LYMPH % 16.5 % (27.0-41.0); MEAN CELL VOLUME 103.6 fl (81.0-99.0); MEAN CORPUSCULAR HGB 31.7 pg (27.0-31.0); MEAN CORPUSCULAR HGB CONC 30.6 g/dl (33.0-37.0); MEAN PLATELET VOLUME 9.4 fl (9.6-12.3); MONO # 0.6 10*3/uL (0.1-1.0); MONO % 9.9 % (3.0-9.0); NEUT # 4.2 10*3/uL (2.3-7.9); NEUT % 72.8 % (47.0-73.0); PLATELET COUNT AUTOMATED 274 10*3/uL (130-400); RED BLOOD COUNT 3.09 10*6/uL (4.10-5.10); WHITE BLOOD COUNT 5.8 10*3/uL (4.8-10.8)
[2020-05-06 21:16] LABS: INTERNATIONAL NORM RATIO 1.1 (2.0-3.5)
[2020-05-06 21:24] LABS: ALBUMIN 1.8 gm/dl (3.1-4.5); ALKALINE PHOSPHATASE 131 U/L (45-117); BUN 23 mg/dl (7-24); CHLORIDE 109 mmol/L (98-107); CREATININE 0.86 mg/dL (0.55-1.02); LIPASE 25 U/L (73-393); POTASSIUM 3.9 mmol/L (3.5-5.1); SGOT/AST 34 IU/L (3-35); SGPT/ALT 14 U/L (12-78); SODIUM 141 mmol/L (136-145); TOTAL PROTEIN 6.5 gm/dL (6.4-8.2)
[2020-05-06 21:26] LABS: TROPONIN I < 0.015 ng/ml (<0.045)
[2020-05-06] MEDS ORDERED: CITALOPRAM HYDR10 MG PO (23:35)
[2020-05-07 00:23] VITALS: BP 141/76
[2020-05-07 00:30] VITALS: BP 148/68
--- NOTE | 2020-05-07 00:30 | NUR ---
A 70, admitted to , under the services of RAFITA Amaro MD with a diagnosis of ASCITES, UTI, ANASARCA. Chief complaint is CHANGE IN MENTAL STATUS. Patient arrived via stretcher from ER. Monitor applied. Initial assessment completed. Vital signs taken and recorded. RAFITA AMARO MD notified of admission to the unit. Orders received. See assessment for past medical history, medications and allergies. Patient and/or family oriented to unit. [facility] visitation policy reviewed. Clothing/patient valuable form completed. NANCY CABA
[2020-05-07] MEDS ORDERED: OXYGEN NAS (00:55)
[2020-05-07 06:34] LABS: INTERNATIONAL NORM RATIO 1.1 (2.0-3.5)
--- NOTE | 2020-05-07 07:43 | NUR ---
Nursing screen received and chart reviewed. Patient admitted for UTI and ascites. If patient has a decline in ADLs, transfers, or functional mobility, please send OT orders. Thank you. Cherelle Rain, OTR/L
[2020-05-07 08:00] VITALS: BP 123/67
--- NOTE | 2020-05-07 08:13 | NUR ---
PT SITING IN BED. NO DISTRESS NOTED. WILL MONITOR
--- NOTE | 2020-05-07 08:22 | NUR ---
PHYSICAL THERAPY Screen received pt admitted with UTI, ascites and anasarca. Please consult PT if patients functional status declines below baseline. David Hernandez SPT Rosemary Seay PT
--- NOTE | 2020-05-07 09:00 | NUR ---
Patient states lives at home with her son and [id number]. There are 2 steps in the home. Physician: Dr. Salomón Swanson [facility]acy: [facility] Home health services: would like [facility] on discharge Patient's level of ADLs: MODERATE ASSIST Patient has working utilities: yes DME: cane, walker, wheelchair Follow-up physician's appointment after d/c: sister prefers to make her own follow up appt after discharge Does patient want to access PORTAL?: no Discharge plan discussed with patient. She lives at home with her son and [id number]. Her 2 sisters live a couple of doors down from her. Her medications are bubble wrapped. She needs assistance with her ADLs and ambulates with either a cane or a walker or gets around in a wheelchair. She is requesting a new wheeled walker for home. Dr. Swanson notified. Discussed short term SNF and she refuses. Discussed home health care and she is agreeable. When provided with a list of agencies she chose [facility] as she has had them in the past. When medically stable she will be discharged to home with [facility] services. She states her son or her sister will provide transportation on discharge. WILBERT GONSALEZ
--- NOTE | 2020-05-07 10:40 | NUR ---
left message with Dr. Swanson regarding wound care recommendations no answer voicemail left for return call back on wound care cell phone. Spoke with nurse caring for patient Anne BLACKWOOD regarding patient still needing wound care orders obtained from [facility].
[2020-05-07 12:00] VITALS: BP 122/48
[2020-05-07 16:00] VITALS: BP 113/43
--- NOTE | 2020-05-07 17:00 | NUR ---
WOUND CARE ORDERS RECIEVED FROM DR TEE
[2020-05-07 20:00] VITALS: BP 118/57
--- NOTE | 2020-05-07 20:10 | NUR ---
24 HR chart check completed.
--- NOTE | 2020-05-07 21:00 | NUR ---
RESTING IN BED. RESPIRATIONS EASY. LUNGS DIMINISHED. PULSE OX 100% 2L. +1 BLE EDEMA, HEEL PROTECTORS PLACED. CALL LIGHT WITHIN REACH. NO VOICED COMPLAINTS. BED ALARM IN PLACE
[2020-05-08] VITALS: BP 115/52
--- NOTE | 2020-05-08 | NUR ---
RESTING IN BED. RESPIRATIONS EASY. VSS. CALL LIGHT WITHIN REACH. BED ALARM MAINTAINED
--- NOTE | 2020-05-08 00:25 | NUR ---
DR TRAN CONTACTED AND INFORMED PATIENT REQUESTING SOMETHING FOR HEADACHE.
--- NOTE | 2020-05-08 00:47 | NUR ---
TYLENOL PROVIDED FOR COMPLAINTS OF HEADACHE RATING A 5. WILL MONITOR
--- NOTE | 2020-05-08 01:30 | NUR ---
MEDS EFFECTIVE. SLEEPING.
--- NOTE | 2020-05-08 04:00 | NUR ---
SLEEPING. BED ALARM MAINTAINED
--- NOTE | 2020-05-08 06:00 | NUR ---
slept throughout night with no distress noted. respirations easy. call light within reach. no voiced complaints this shift. bed alarm maintained
[2020-05-08 06:23] LABS: BASO % 0.5 % (0.0-1.0); EOS % 0.5 % (1.0-4.0); HEMATOCRIT 25.8 % (37.0-47.0); LYMPH # 1.5 10*3/uL (1.3-4.4); LYMPH % 35.6 % (27.0-41.0); MEAN CELL VOLUME 104.5 fl (81.0-99.0); MEAN CORPUSCULAR HGB 32.4 pg (27.0-31.0); MEAN PLATELET VOLUME 9.7 fl (9.6-12.3); MONO # 0.5 10*3/uL (0.1-1.0); MONO % 10.5 % (3.0-9.0); NEUT # 2.3 10*3/uL (2.3-7.9); NEUT % 52.7 % (47.0-73.0); PLATELET COUNT AUTOMATED 221 10*3/uL (130-400); RED BLOOD COUNT 2.47 10*6/uL (4.10-5.10); RED CELL DISTRI WIDTH 16.1 % (0-14.5); WHITE BLOOD COUNT 4.3 10*3/uL (4.8-10.8)
[2020-05-08 06:54] LABS: BUN 19 mg/dl (7-24); CHLORIDE 112 mmol/L (98-107); CREATININE 0.69 mg/dL (0.55-1.02); POTASSIUM 4.1 mmol/L (3.5-5.1); SODIUM 144 mmol/L (136-145)
[2020-05-08 08:00] VITALS: BP 118/61
--- NOTE | 2020-05-08 08:30 | NUR ---
CM in to see patient. She states she feels much better after the fluid was removed from her belly yesterday. She states 3 large container were filled up. No new needs or request at this time. When medically stable she will be discharged to home with [facility] services.
--- NOTE | 2020-05-08 08:58 | NUR ---
PT RESTING IN BED. NO DISTRESS NOTED. WILL MONITOR
[2020-05-08 12:00] VITALS: BP 125/53
[2020-05-08 16:00] VITALS: BP 130/93
[2020-05-08 18:00] VITALS: BP 140/70
[2020-05-08 20:00] VITALS: BP 134/77
--- NOTE | 2020-05-08 20:14 | NUR ---
24 HR chart check completed.
--- NOTE | 2020-05-08 20:45 | NUR ---
RESTING IN BED, NO ACUTE DISTRESS NOTED. RESPIRATIONS EASY. LUNGS DIMINISHED, CLEAR. PULSE OX 99% 2L. ABD SOFT WITH HYPER BOWEL SOUNDS. TRACE BLE EDEMA - HEEL PROTECTORS PRESENT AT BEDSIDE BUT REFUSING TO WEAR. CALL LIGHT WITHIN REACH. NO VOICED COMPLAINTS. BED ALARM MAINTAINED
[2020-05-09] VITALS: BP 118/72
--- NOTE | 2020-05-09 | NUR ---
SLEEPING. NO DISTRESS NOTED. RESPIRATIONS EASY. VSS. CALL LIGHT WITHIN REACH. BED ALARM MAINTAINED
--- NOTE | 2020-05-09 06:00 | NUR ---
SLEPT THROUGHOUT NIGHT WITH NO DISTRESS NOTED. RESPIRATIONS EASY. O2 IN USE. CALL LIGHT WITHIN REACH. NO VOICED COMPLAINTS THIS SHIFT. BED ALARM MAINTAINED FOR SAFETY
[2020-05-09 08:00] VITALS: BP 110/75
--- NOTE | 2020-05-09 09:23 | NUR ---
CM in to see patient. No new needs or request at this time. Asked patient if she was given a prescription for a wheeled walker from the doctor. She stated no. Checked chart, no prescription. Notified Dr. Swanson and Dr. Noland. When medically stable she will be discharged to home with [facility] services.
--- NOTE | 2020-05-09 09:32 | NUR ---
Faxed home health care referral to [facility]
[2020-05-09 12:00] VITALS: BP 126/56
[2020-05-09] MEDS ORDERED: CIPROFLOXACIN500 M4 PO (15:38)
--- NOTE | 2020-05-09 15:41 | NUR ---
PT REFUSED DC WOUND PHOTOS
--- NOTE | 2020-05-09 16:00 | NUR ---
GAVE DC INSTRUCTIONS OVER THE PHONE TO SISTER DAX
--- NOTE | 2020-05-09 16:15 | NUR ---
Discharge instructions reviewed with patient/family. Patient receptive and verbalizes understanding. Follow-up care arranged. Written instructions given to patient/family. KEIRA ALMEIDA
--- NOTE | 2020-05-10 07:15 | NUR ---
Faxed discharge instructions to [facility]
== END 2020-05-09 16:15 | disposition home health service (06) | DRG 689 ==
LOC: ED 19:52 → EDHOLD 22:58 → 5E 22:58
PROVIDERS: Emergency Medicine; Internal Medicine Nephrology; ADMIT Internal Medicine; ATTEND Internal Medicine
PROC: 0W9G3ZZ Drainage of Peritoneal Cavity, Percutaneous Approach (ICD-10-PCS; principal; 2020-05-08)
DX: N30.01 Acute cystitis with hematuria (principal); E43 Unspecified severe protein-calorie malnutrition; G93.41 Metabolic encephalopathy; R18.8 Other ascites; I50.9 Heart failure, unspecified; K74.60 Unspecified cirrhosis of liver; K75.81 Nonalcoholic steatohepatitis (NASH); E03.9 Hypothyroidism, unspecified; Z96.651 Presence of right artificial knee joint; Z96.641 Presence of right artificial hip joint; D64.9 Anemia, unspecified; S90.31XA Contusion of right foot, initial encounter; S51.811A Laceration without foreign body of right forearm, initial encounter; K21.9 Gastro-esophageal reflux disease without esophagitis; G40.909 Epilepsy, unspecified, not intractable, without status epilepticus; E55.9 Vitamin D deficiency, unspecified; I48.91 Unspecified atrial fibrillation; Z79.01 Long term (current) use of anticoagulants; Z82.49 Family history of ischemic heart disease and other diseases of the circulatory system; Z83.3 Family history of diabetes mellitus; Z98.84 Bariatric surgery status; Z68.30 Body mass index [BMI] 30.0-30.9, adult; X58.XXXA Exposure to other specified factors, initial encounter; Y93.89 Activity, other specified; Y92.89 Other specified places as the place of occurrence of the external cause; Y99.8 Other external cause status; Z88.6 Allergy status to analgesic agent

== ENCOUNTER 2020-06-02 16:07 | Emergency (ER) | payer MEDICARE ==
[~2020-06-02 16:07] MED LIST changes: +CIPROFLOXACIN500 M4 PO; +CITALOPRAM HYDR10 MG PO; +OXYGEN NAS
[2020-06-02 18:42] LABS: BASO % 0.2 % (0.0-1.0); EOS % 0.3 % (1.0-4.0); HEMATOCRIT 33.5 % (37.0-47.0); LYMPH # 1.1 10*3/uL (1.3-4.4); LYMPH % 16.8 % (27.0-41.0); MEAN CELL VOLUME 102.8 fl (81.0-99.0); MEAN CORPUSCULAR HGB 32.2 pg (27.0-31.0); MEAN CORPUSCULAR HGB CONC 31.3 g/dl (33.0-37.0); MEAN PLATELET VOLUME 9.6 fl (9.6-12.3); MONO # 0.5 10*3/uL (0.1-1.0); NEUT # 4.9 10*3/uL (2.3-7.9); NEUT % 74.2 % (47.0-73.0); PLATELET COUNT AUTOMATED 241 10*3/uL (130-400); RED BLOOD COUNT 3.26 10*6/uL (4.10-5.10); RED CELL DISTRI WIDTH 15.1 % (0-14.5); WHITE BLOOD COUNT 6.6 10*3/uL (4.8-10.8)
[2020-06-02 18:59] LABS: ALBUMIN 1.8 gm/dl (3.1-4.5); ALKALINE PHOSPHATASE 139 U/L (45-117); BUN 22 mg/dl (7-24); CHLORIDE 108 mmol/L (98-107); CREATININE 0.86 mg/dL (0.55-1.02); SGOT/AST 27 IU/L (3-35); SGPT/ALT 15 U/L (12-78); SODIUM 140 mmol/L (136-145); TOTAL PROTEIN 6.3 gm/dL (6.4-8.2)
[2020-06-06] MEDS ORDERED: TRAZODONE50 MG PO (15:50)
[2020-06-06] MEDS ORDERED: OMEPRAZOLE40 MG PO (15:54)
[2020-06-06] MEDS ORDERED: ELIQUIS5 M1 PO (15:56)
[2020-06-06] MEDS ORDERED: OYSTER SHELL 51 EACH PO (15:58)
[2020-06-06] MEDS ORDERED: ZYVOX600 MG PO (16:00)
[2020-06-06] MEDS ORDERED: ALENDRONATE SOD70 M1 PO (16:01)
[2020-06-06] MEDS ORDERED: ALDACTONE25 M1 PO (16:02)
== END 2020-06-02 21:22 | disposition home or self-care (01) ==
LOC: ED 16:07
PROVIDERS: Emergency Medicine
DX: E88.09 Other disorders of plasma-protein metabolism, not elsewhere classified (principal); I50.20 Unspecified systolic (congestive) heart failure; K21.9 Gastro-esophageal reflux disease without esophagitis; E03.9 Hypothyroidism, unspecified; M19.90 Unspecified osteoarthritis, unspecified site; Z88.5 Allergy status to narcotic agent; Z79.899 Other long term (current) drug therapy